=== PATIENT | male | born 1985 | race American Indian/Alaskan Native ===

== ENCOUNTER 2018-02-02 04:54 | Outpatient (CLI) | payer MEDICAID | END 2018-02-02 04:55 | disposition critical access hospital (66) | LOC: EMS 04:54 | PROVIDERS: ATTEND Surgery | DX: R07.9 Chest pain, unspecified (principal) | CPT/HCPCS: A0425; A0427 ==

== ENCOUNTER 2018-02-02 05:13 | Emergency (ER) | payer MEDICAID ==
--- NOTE | 2018-02-02 05:14 | ED Physician Documentation ---
PD HPI CHEST PAIN - Stated complaint Stated Complaint: CHEST PAIN - History obtained from History obtained from: Patient - History of Present Illness Timing - onset: Today Timing - details: Gradual onset, Constant, Waxing and waning Pain level now: 6 Quality: Pain Location: Left chest Radiation: Back Improved by: Nothing Worsened by: Position Associated symptoms: No: Shortness of air, Diaphoresis, Nausea, Vomiting, Feeling faint / dizzy, General Weakness, Palpitations, Cough Similar symptoms before: Has not had sx before Recently seen: Other (has been in [facility] days) - Additional information Additional information: left chest pain radiating to left shoulder blade all day. also c/o back pain, and painful swelling of right thumb and left fifth toe; except for the chest pain, these other symptoms are part of his chronic, underlying disorder ( reactive arthritis) for which he had been receiving treatment in [place] including [facility]. Review of Systems Constitutional: reports: Reviewed and negative Cardiac: reports: Chest pain / pressure. denies: Palpitations, Pedal edema Respiratory: reports: Reviewed and negative GI: reports: Reviewed and negative Skin: denies: Rash Musculoskeletal: reports: Back pain, Extremity pain, Extremity swelling PD PAST MEDICAL HISTORY - Past Medical History Past Medical History: Yes - Present Medications Home Medications: Ambulatory Orders Medication Instructions Recorded Confirmed Acetaminophen [Tylenol] 2 tab PO QPM 02/02/18 02/02/18 Cephalexin [Keflex] 500 mg PO Q6HR #27 capsule 02/02/18 Ibuprofen 1 tab PO TID 02/02/18 02/02/18 diphenhydrAMINE [Benadryl] 1 - 2 cap PO QPM PRN 02/02/18 02/02/18 oxyCODONE/ACET 5/325 [Percocet 5 1 each PO Q6H PRN #10 tablet 02/02/18 mg/325 mg] predniSONE [Prednisone] 1 tab PO DAILY 02/02/18 02/02/18 - Allergies Allergies/Adverse Reactions: Allergies Allergy/AdvReac Type Severity Reaction Status Date / Time No Known Drug Allergies Allergy Verified 02/02/18 05:24 PD ED PE NORMAL - Vitals Vital signs reviewed: Yes - General General: Alert and oriented X 3, No acute distress, Well developed/nourished - HEENT HEENT: Moist mucous membranes - Neck Neck: Supple, no meningeal sign - Cardiac Cardiac: RRR, No murmur, No gallop, No rub - Respiratory Respiratory: No respiratory distress, Clear bilaterally - Abdomen Abdomen: Soft, Non tender PD ED PE EXPANDED - Extremities Extremities: Tenderness (right thumb, left fifth toe), Limited ROM, Swelling ( severe right thumb, mild left fifth toe) Results - Vitals Vitals: Oxygen O2 Source Room air - EKG (time done) No standard instances Rate: Rate (enter#) (90) Rhythm: NSR [place]: Normal Intervals: Normal MA QRS: Normal Ischemia: Normal ST segments - Labs Labs: Laboratory Tests 02/02/18 02/02/18 02/02/18 06:03 06:03 06:03 WBC 10.4 RBC 3.63 L Hgb 11.3 L Hct 34.1 L MCV 94.0 MCH 31.2 H MCHC 33.2 RDW 12.9 Plt Count 478 H MPV 5.9 L Neut # 7.6 H Lymph # 1.6 [place] # 1.0 Eos # 0.1 Baso # 0.1 Absolute Nucleated RBC 0.00 Nucleated RBC % 0.0 Sodium 140 Potassium 4.0 Chloride 102 Carbon Dioxide 31 Anion Gap 7.0 BUN 17 Creatinine 0.8 Estimated GFR (MDRD) 111 Glucose 99 Calcium 8.8 Troponin I < 0.04 - Rads (name of study) chest xray Radiology: Prelim report reviewed, See rad report PD MEDICAL DECISION MAKING - ED course Complexity details: reviewed results, re-evaluated patient, considered differential, d/w patient ED course: although dactylitis is typical for reactive arthritis, he says there has been thick, green discharge from the right thumb and thus keflex given and prescribed. given percocet with rx, as pain is typically associated with this disorder. he says he plans to relocate to [place] after finishing with his [facility] time ([place] and then [place]). He says he plans to set himself up with outpatient physician, which will be [place]ug[place] to treating his reactive arthritis and help prevent frequent ED visits should he relocate locally. Departure - Departure Disposition: 01 Home, Self Care Clinical Impression: Reactive arthritis Condition: Good Instructions: ED Chest Pain Atypical Unkn Cause Follow-Up: [facility] [Provider Group] [facility] [Provider Group] Prescriptions: Cephalexin [Keflex] 500 mg PO Q6HR #27 capsule oxyCODONE/ACET 5/325 [Percocet 5 mg/325 mg] 1 each PO Q6H PRN #10 tablet PRN Reason: Pain Discharge Date/Time: 02/02/18 07:57
[2018-02-02] MEDS ORDERED: predniSONE 20 MG TABLET PO STA (06:04)
[2018-02-02 06:14] LABS: BASOPHILS # (AUTO) 0.1 10^3/uL (0.0-0.1); BASOPHILS % (AUTO) 0.8 %; EOSINOPHILS # (AUTO) 0.1 10^3/uL (0.0-0.7); EOSINOPHILS % (AUTO) 0.9 %; HGB - HEMOGLOBIN 11.3 g/dL (14.0-18.0); LYMPHOCYTES # (AUTO) 1.6 10^3/uL (1.5-3.5); LYMPHOCYTES % (AUTO) 15.5 %; MEAN CORPUSCULAR HEMOGLOBIN 31.2 pg (27.0-31.0); MEAN CORPUSCULAR HGB CONC 33.2 g/dL (32.0-36.0); MEAN PLATELET VOLUME 5.9 fL (7.4-11.4); MONOCYTES % (AUTO) 9.7 %; NEUTROPHILS # (AUTO) 7.6 10^3/uL (1.5-6.6); NEUTROPHILS % (AUTO) 73.1 %; PLT - PLATELET COUNT 478 10^3/uL (130-450); RED BLOOD COUNT 3.63 10^6/uL (4.70-6.10); RED CELL DISTRIBUTION WIDTH 12.9 % (12.0-15.0); WHITE BLOOD COUNT 10.4 x10^3/uL (4.8-10.8)
[2018-02-02 06:23] LABS: CALCIUM 8.8 mg/dL (8.5-10.3); CREATININE 0.8 mg/dL (0.6-1.2)
--- NOTE | 2018-02-02 06:55 | XRAY Report ---
EXAM: CHEST RADIOGRAPHY EXAM DATE: 02/02/2018 06:22 AM. CLINICAL HISTORY: Chest pain. COMPARISON: 09/30/2015, 12/12/2012. TECHNIQUE: 2 views. FINDINGS: Lungs/Pleura: No focal opacities evident. No pleural effusion. No pneumothorax. Normal volumes. Mediastinum: Heart and mediastinal contours are unremarkable. Other: None. IMPRESSION: Stable negative 2-view chest radiography. [facility] Referring Provider Line: [phone] SITE ID: [id number]
[2018-02-02] MEDS ORDERED: oxyCOD/ACETAMIN 5 MG/325 MG TABLET PO STA (07:24)
[2018-02-02] MEDS ORDERED: cephALEXin 250 MG CAPSULE PO STA (07:25)
[2018-02-02 07:45] VITALS: BP 127/81
== END 2018-02-02 07:57 | disposition home or self-care (01) ==
LOC: EDUNIT# → ED 05:13
DX: M02.30 Reiter's disease, unspecified site (principal)
CPT/HCPCS: 36415; 71046; 80048; 84484; 85025; 93005; 99284; A9270; J7512

== ENCOUNTER 2018-02-26 10:30 | Emergency (ER) | payer MEDICAID ==
[2018-02-26 10:44] VITALS: BP 124/85
[2018-02-26] MEDS ORDERED: DEXAMETHASONE 10 MG/ML VIAL PO STA (11:27)
[2018-02-26] MEDS ORDERED: KETOROLAC 60 MG/2 ML VIAL IVP STA (11:27)
--- NOTE | 2018-02-26 11:30 | ED Physician Documentation ---
History of Present Illness - Stated complaint Stated Complaint: SHOULDER/ANKLE/KNEE/HIP PX - Chief complaint Chief Complaint: Ext Problem - History obtained from History obtained from: Patient - History of Present Illness Timing: How many weeks ago (1) - Additonal information Additional information: 32-year-old male with a history of HLA 27B arthritis has been off of his Humira and has not been able to establish care with a fitness consultant since leaving [place]. He has developed worsening of his symptoms over the past week and he has a lot of swelling in his knee and pain in his spine. He has had some trouble with follow-up in that he was not able to be seen in the clinic secondary to insurance issues and he has not been able to get follow-up. Review of Systems Constitutional: denies: Fever Eyes: denies: Decreased vision Ears: denies: Ear pain Nose: denies: Congestion Throat: denies: Sore throat Cardiac: denies: Chest pain / pressure, Palpitations Respiratory: denies: Dyspnea, Cough GI: denies: Nausea, Vomiting : denies: Dysuria, Frequency Musculoskeletal: reports: Neck pain, Back pain, Extremity pain, Joint pain, Joint swelling, Pain with weight bearing Neurologic: denies: Generalized weakness, Focal weakness, Numbness PD PAST MEDICAL HISTORY - Past Medical History Endocrine/Autoimmune: None Psych: Anxiety, Panic attacks Musculoskeletal: Osteoarthritis - Past Surgical History Past Surgical History: No - Present Medications Home Medications: Ambulatory Orders Medication Instructions Recorded Confirmed oxyCODONE/ACET 5/325 [Percocet 5 1 - 2 each PO Q4-6H PRN #20 tablet 02/26/18 mg/325 mg] predniSONE [Deltasone] 10 mg PO DAILY #26 tablet 02/26/18 - Allergies Allergies/Adverse Reactions: Allergies Allergy/AdvReac Type Severity Reaction Status Date / Time No Known Drug Allergies Allergy Verified 02/26/18 10:37 - Social History Does the pt smoke?: No Smoking Status: Never smoker Does the pt drink ETOH?: No Does the pt have substance abuse?: Yes - Immunizations Immunizations are current?: No Immunizations: No immun - POLST Patient has POLST: No PD ED PE NORMAL - Vitals Vital signs reviewed: Yes (hypertensive mild ) - General General: Alert and oriented X 3, No acute distress, Well developed/nourished, Other (32 y/o male moaning in pain grasping his knee ) - HEENT HEENT: Atraumatic, PERRL, EOMI, Ears normal - Neck Neck: Supple, no meningeal sign, Other (There is bony point tenderness to the spine at the T4 level ) - Cardiac Cardiac: RRR, No murmur - Respiratory Respiratory: No respiratory distress, Clear bilaterally - Abdomen Abdomen: Soft, Non tender - Back Back: No CVA TTP - Derm Derm: Normal color, Warm and dry, No rash - Extremities Extremities: No deformity, Other (There is marked swelling and tenderness to the left knee with an obvious effusion. There is no erythema or warmth to the joint and there is pain with movement . ) - Neuro Neuro: No motor deficit, No sensory deficit Eye Opening: Spontaneous Motor: Obeys Commands Verbal: Oriented GCS Score: 15 - Psych Psych: Normal mood, Normal affect Results - Vitals Vitals: Vital Signs - 24 hr 02/26/18 10:34 Temperature 36.9 C Heart Rate 98 Respiratory 16 Rate Blood Pressure 124/85 H O2 Saturation 100 Oxygen O2 Source Room air PD MEDICAL DECISION MAKING - ED course Complexity details: considered differential, d/w patient ED course: 32-year-old male with HLA B27 arthritis has a flare of his arthritis and has no current medical care. Here in the emergency department he is administered dexamethasone 10 mg intravenous and 30 mg of Toradol. He does appear to be in a lot of pain. We will administer some pain medication and a course of prednisone and he will seek follow-up. Departure - Departure Disposition: 01 Home, Self Care Clinical Impression: Reactive arthritis, HLA-B27 positive arthropathy Condition: Stable Instructions: HLA-B27 Antigen Follow-Up: [facility] [Provider Group] [facility] [Provider Group] Juan Morejon MD [Physician No Access] - Prescriptions: oxyCODONE/ACET 5/325 [Percocet 5 mg/325 mg] 1 - 2 each PO Q4-6H PRN #20 tablet PRN Reason: Pain predniSONE [Deltasone] 10 mg PO DAILY #26 tablet
[2018-02-26] MEDS ORDERED: DEXAMETHASONE 10 MG/ML VIAL IVP STA (11:47)
[2018-02-26] MEDS ORDERED: CHERRY SYRUP 10 ML UDC PO ONE (11:55)
== END 2018-02-26 12:17 | disposition home or self-care (01) ==
LOC: ED 10:30
DX: M02.30 Reiter's disease, unspecified site (principal); M12.9 Arthropathy, unspecified
CPT/HCPCS: 36415; 96374; 96375; 99283; A9270

== ENCOUNTER 2018-10-16 03:18 | Emergency (ER) | payer MEDICAID ==
--- NOTE | 2018-10-16 03:25 | ED Physician Documentation ---
PD HPI LOWER EXT INJURY - Stated complaint Stated Complaint: R LEG PAIN - History obtained from History obtained from: Patient - History of Present Illness PD HPI LOW EXT INJURY LOCATION: Right, Lower leg, Ankle Type of injury: Other (denies recent infections). No: Fall, Twist, Blunt / blow Timing - duration: Days (2) Timing - details: Abrupt onset, Still present Improved by: No: Rest Worsened by: Moving, Palpating Associated symptoms: Swelling, Discolored (red and purple coloring). 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 Was referred to an [employer] but had not gone as yet. Had also been told he had gout in the past, at big toes.) Review of Systems Constitutional: denies: Fever, Myalgias Nose: denies: Rhinorrhea / runny nose, Congestion Throat: denies: Sore throat Respiratory: denies: Cough GI: denies: Vomiting, Diarrhea : denies: Dysuria, Frequency, Discharge Skin: denies: Abrasion (s), Laceration (s) Musculoskeletal: reports: Back pain (chronic) PD PAST MEDICAL HISTORY - Past Medical History Endocrine/Autoimmune: None Psych: Anxiety, Panic attacks Musculoskeletal: Osteoarthritis - Past Surgical History Past Surgical History: No - Present Medications Home Medications: Ambulatory Orders Medication Instructions Recorded Confirmed oxyCODONE/ACET 5/325 [Percocet 5 1 - 2 each PO Q4-6H PRN #20 tablet 02/26/18 mg/325 mg] predniSONE [Deltasone] 10 mg PO DAILY #26 tablet 02/26/18 Dexamethasone [Decadron] 4 mg PO DAILY #5 tablet 10/16/18 Doxycycline Hyclate 100 mg PO BID #20 capsule 10/16/18 Naproxen 500 mg PO BID #20 tablet 10/16/18 Oxycodone HCl/Acetaminophen 1 - 2 each PO Q6H PRN #20 tablet 10/16/18 [Percocet 5-325 mg Tablet] - Allergies Allergies/Adverse Reactions: Allergies Allergy/AdvReac Type Severity Reaction Status Date / Time No Known Drug Allergies Allergy Verified 10/16/18 03:27 - Social History Does the pt smoke?: No Smoking Status: Never smoker Does the pt drink ETOH?: No Does the pt have substance abuse?: Yes - Immunizations Immunizations are current?: No Immunizations: No immun - POLST Patient has POLST: No PD ED PE NORMAL - Vitals Vital signs reviewed: Yes - General General: Alert and oriented X 3, No acute distress, Well developed/nourished - HEENT HEENT: PERRL, EOMI - Neck Neck: Supple, no meningeal sign, No adenopathy - Cardiac Cardiac: RRR, No murmur - Respiratory Respiratory: Clear bilaterally - Back Back: No CVA TTP - Derm Derm: Normal color, Warm and dry - Extremities Extremities: Other (rigth lower leg/upper ankle with redness and very tender to the touch. There is purple bruising color in band around anterior lower lower leg. No skin ulcerations nor sores noted. No proximal red streaking. ) - Neuro Neuro: No motor deficit, No sensory deficit Results - Vitals Vitals: Vital Signs - 24 hr 10/16/18 03:24 Temperature 36.5 C Heart Rate 90 Respiratory 18 Rate Blood Pressure 123/78 O2 Saturation 94 Oxygen O2 Source Room air - Labs Labs: Laboratory Tests 10/16/18 10/16/18 10/16/18 04:15 04:15 04:15 WBC 6.7 RBC 3.55 L Hgb 11.3 L Hct 32.5 L MCV 91.6 MCH 31.9 H MCHC 34.8 RDW 13.5 Plt Count 392 MPV 5.9 L Neut # (Auto) 4.0 Lymph # (Auto) 1.7 [place] # (Auto) 0.8 Eos # (Auto) 0.1 Baso # (Auto) 0.1 Absolute Nucleated RBC 0.00 Nucleated RBC % 0.0 Sodium 136 Potassium 3.5 Chloride 101 Carbon Dioxide 27 Anion Gap 8.0 BUN 17 Creatinine 0.7 Estimated GFR (MDRD) 129 Glucose 147 H Calcium 8.3 L Total Bilirubin 0.4 AST 29 ALT 15 Alkaline Phosphatase 105 C-Reactive Protein 10.3 H Total Protein 7.8 Albumin 3.4 Globulin 4.4 H Albumin/Globulin Ratio 0.8 L Lipase 25 - Rads (name of study) right ankled Radiology: Prelim report reviewed (no acute bony process), See rad report PD MEDICAL DECISION MAKING - ED course Complexity details: reviewed results, considered differential (Consider version of gout versus monoarthritis. 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 He not had a recent other obvious infection. It is single joint area at the upper ankle to lower leg and so not obviously rheumatoid. There is some redness and warmth but no obvious skin sores. Less likely to be cellulitis. Likely will treat with NSAIDs and pain medicine. Consider short course of steroids as well and whether to do antibiotics for possible cellulitis.), d/w patient Departure - Departure Clinical Impression: Arthritis of right ankle, Reactive arthritis Condition: Stable Record reviewed to determine appropriate education?: Yes Prescriptions: Dexamethasone [Decadron] 4 mg PO DAILY #5 tablet Doxycycline Hyclate 100 mg PO BID #20 capsule Naproxen 500 mg PO BID #20 tablet Oxycodone HCl/Acetaminophen [Percocet 5-325 mg Tablet] 1 - 2 each PO Q6H PRN #20 tablet PRN Reason: pain Comments: This is most likely to be inflammatory such as reactive arthritis or gout and we would treated with naproxen twice daily for 7-10 days to to be taken with food. We can add steroids daily for the next several days as well. Add Percocet if needed for pain. Consider the possibility of an infection alternatively and so we will give antibiotics of doxycycline twice daily for a week. Recheck if not improving over the next several days.
[2018-10-16] MEDS ORDERED: DEXAMETHASONE 10 MG/ML VIAL PO STA (03:41)
[2018-10-16] MEDS ORDERED: oxyCODONE 5 MG TABLET PO STA (03:41)
[2018-10-16] MEDS ORDERED: IBUPROFEN 600 MG TABLET PO STA (03:41)
--- NOTE | 2018-10-16 04:03 | XRAY Report ---
Reason: right ankle red and swelling Procedure Date: 10/16/2018 Accession Number: [id number] / [id number] Procedure: XR - Ankle 3 View RT CPT Code: FULL RESULT: EXAM: RIGHT ANKLE RADIOGRAPHY EXAM DATE: 10/16/2018 03:58 AM. CLINICAL HISTORY: Right ankle red and swelling. COMPARISON: None. TECHNIQUE: 3 views. FINDINGS: Bones: No fracture seen. No focal area of bone destruction. Joints: No dislocation seen. Ankle mortise appears intact. No joint effusion identified. Soft Tissues: Soft tissue swelling. IMPRESSION: 1. Soft tissue swelling. 2. No acute osseous abnormality seen. [facility]
[2018-10-16 04:21] LABS: BASOPHILS # (AUTO) 0.1 10^3/uL (0.0-0.1); BASOPHILS % (AUTO) 1.3 %; EOSINOPHILS # (AUTO) 0.1 10^3/uL (0.0-0.7); EOSINOPHILS % (AUTO) 1.4 %; HGB - HEMOGLOBIN 11.3 g/dL (14.0-18.0); LYMPHOCYTES # (AUTO) 1.7 10^3/uL (1.5-3.5); LYMPHOCYTES % (AUTO) 25.8 %; MEAN CORPUSCULAR HEMOGLOBIN 31.9 pg (27.0-31.0); MEAN CORPUSCULAR HGB CONC 34.8 g/dL (32.0-36.0); MEAN CORPUSCULAR VOLUME 91.6 fL (80.0-94.0); MEAN PLATELET VOLUME 5.9 fL (7.4-11.4); MONOCYTES # (AUTO) 0.8 10^3/uL (0.0-1.0); MONOCYTES % (AUTO) 12.3 %; NEUTROPHILS % (AUTO) 59.2 %; PLT - PLATELET COUNT 392 10^3/uL (130-450); RED BLOOD COUNT 3.55 10^6/uL (4.70-6.10); RED CELL DISTRIBUTION WIDTH 13.5 % (12.0-15.0); WHITE BLOOD COUNT 6.7 x10^3/uL (4.8-10.8)
[2018-10-16 04:34] LABS: ALBUMIN 3.4 g/dL (3.2-5.5); ALBUMIN/GLOBULIN RATIO 0.8 (1.0-2.2); BILIRUBIN,TOTAL 0.4 mg/dL (0.2-1.0); CALCIUM 8.3 mg/dL (8.5-10.3); CREATININE 0.7 mg/dL (0.6-1.2); TOTAL PROTEIN 7.8 g/dL (6.7-8.2)
[2018-10-16] MEDS ORDERED: DOXYCYCLINE 100 MG TABLET PO STA (04:56)
[2018-10-16 05:25] VITALS: BP 130/80
== END 2018-10-16 05:44 | disposition home or self-care (01) ==
LOC: ED 03:18
DX: M02.371 Reiter's disease, right ankle and foot (principal); M19.90 Unspecified osteoarthritis, unspecified site
CPT/HCPCS: 36415; 73610; 80053; 83690; 85025; 85651; 86140; 99283; A9270

== ENCOUNTER 2019-08-02 13:04 | Emergency (ER) | payer MEDICAID ==
[2019-08-02] MEDS ORDERED: PROPARACAINE 0.5% OPHTH DROPS 15 ML EACHEYE STA (13:46)
--- NOTE | 2019-08-02 13:46 | ED Physician Documentation ---
History of Present Illness - Stated complaint Stated Complaint: VISION CHANGES - Chief complaint Chief Complaint: Heent - Additonal information Additional information: This is a 34 year old male with a history of HLA B-27 who presents with redness and pain and vision loss in his right eye over the past week. This has been progressive. He denies trauma to the eye. Now he can only see light/dark in the eye. He had this happen once before but does not remember what it was called or how it was treated. Review of Systems Constitutional: denies: Fever Eyes: reports: Loss of vision Cardiac: denies: Chest pain / pressure Skin: denies: Rash PD PAST MEDICAL HISTORY - Past Medical History Endocrine/Autoimmune: Other (HLA-B27) Psych: Anxiety, Panic attacks Musculoskeletal: Osteoarthritis - Past Surgical History Past Surgical History: No - Present Medications Home Medications: Ambulatory Orders Medication Instructions Recorded Confirmed No Known Home Medications 08/02/19 08/02/19 - Allergies Allergies/Adverse Reactions: Allergies Allergy/AdvReac Type Severity Reaction Status Date / Time No Known Drug Allergies Allergy Verified 08/02/19 13:09 - Social History Does the pt smoke?: No Smoking Status: Never smoker Does the pt drink ETOH?: No Does the pt have substance abuse?: Yes - Immunizations Immunizations are current?: No Immunizations: No immun - POLST Patient has POLST: No PD ED PE NORMAL - Vitals Vital signs reviewed: Yes - General General: Alert and oriented X 3 - HEENT HEENT: Other (Pupils are equal round, reactive to light. Right sclera is injected, and pt has photophobia. Left sclera completely normal. [place] normal in left, only percieves light/dark in the right. No focal uptake with fluorescein staining bilaterally. Flare on slit lamp exam on the right. IOP 23 on right, 18 on left.) - Neck Neck: Supple, no meningeal sign - Cardiac Cardiac: RRR, No murmur - Respiratory Respiratory: Clear bilaterally - Derm Derm: Warm and dry - Extremities Extremities: No deformity - Neuro Neuro: Alert and oriented X 3 - Psych Psych: Normal mood, Normal affect Results - Vitals Vitals: Oxygen O2 Source Room air PD MEDICAL DECISION MAKING - ED course Complexity details: considered differential (Glaucoma, uveitis, conjunctivits, iritis) ED course: Pt has near complete vision loss on the right, with physical exam and history highly suggestive of uveitis. Glaucoma unlikely given IOP only slightly elevated at 23. I called several ophthalmologists and Dr. Simon of [facility] in [place] is able to see patient immediately. I discussed that he needs to go there directly for evaluation and treatment today, and if for some reason he is unable to be seen, he needs to present to a local ED for opthalmologist evaluation. Patient agrees and was discharged to go via POV (per pt's wishes, with family member driving him) to [facility]. Departure - Departure Disposition: Home, Self Care Clinical Impression: Uveitis Condition: Stable Instructions: ED Uveitis Follow-Up: SHIRA SIMON MD [Physician No Access] - (Today, at 4:10 [facility] in [facility] at [address], ) Comments: You were seen today for vision loss and pain in your right eye, I think this is likely uveitis, which is inflammation of your eye. You need to be seen by an food scientist today. You have an appointment at [facility], please go directly there to see Dr. Simon, if you are unable to see him please return to the emergency department, preferably in an emergency department that has ophthalmology available. Discharge Date/Time: 08/02/19 15:07
[2019-08-02 15:07] VITALS: BP 130/77
== END 2019-08-02 15:07 | disposition home or self-care (01) ==
LOC: ED 13:04
DX: H20.9 Unspecified iridocyclitis (principal)
CPT/HCPCS: 99282; 99284; J3490

== ENCOUNTER 2019-12-13 22:53 | Emergency (ER) | payer MEDICAID ==
--- NOTE | 2019-12-13 23:56 | ED Physician Documentation ---
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 He has been seen at the [facility] by [employer]. The patient reports that he is unable to afford his medications so he has not been using any medications that have been recommended by ophthalmology and presents tonight for acute hand and feet pain and swelling and eye pain and redness.) Review of Systems Constitutional: reports: Myalgias Eyes: reports: Loss of vision, Decreased vision, Photophobia, Irritation Ears: reports: Reviewed and negative Nose: reports: Reviewed and negative Throat: reports: Reviewed and negative Cardiac: reports: Reviewed and negative Respiratory: reports: Reviewed and negative GI: reports: Reviewed and negative : reports: Reviewed and negative Skin: reports: Reviewed and negative Musculoskeletal: reports: Extremity pain Neurologic: reports: Reviewed and negative Psychiatric: reports: Reviewed and negative Endocrine: reports: Reviewed and negative Immunocompromised: reports: Reviewed and negative PD PAST MEDICAL HISTORY - Past Medical History Past Medical History: Yes Cardiovascular: None Respiratory: None Neuro: None Endocrine/Autoimmune: Other GI: None : None HEENT: None Psych: Anxiety, Panic attacks Musculoskeletal: Osteoarthritis Derm: None - Past Surgical History Past Surgical History: No - Present Medications Home Medications: Ambulatory Orders Medication Instructions Recorded Confirmed No Known Home Medications 08/02/19 08/02/19 - Allergies Allergies/Adverse Reactions: Allergies Allergy/AdvReac Type Severity Reaction Status Date / Time No Known Drug Allergies Allergy Verified 12/13/19 22:57 - Social History Does the pt smoke?: No Smoking Status: Never smoker Does the pt drink ETOH?: No Does the pt have substance abuse?: Yes - Immunizations Immunizations are current?: No Immunizations: No immun - POLST Patient has POLST: No PD ED PE NORMAL - Vitals Vital signs reviewed: Yes - General General: Alert and oriented X 3, No acute distress, Well developed/nourished - HEENT HEENT: Atraumatic, PERRL, EOMI, Ears normal, Moist mucous membranes, Pharynx benign, Dentition benign, Other (The pupils are equal round and reactive to lightAnd extraocular motions intact there is consensual photophobia present eyelids were everted no obvious foreign bodies noted there is diffuse scleral and conjunctival injection and erythema. The orbits are soft. There is no discharge there is no preauricular lymphadenopathy.Intraocular pressure is less than 20 bilaterally.Patient is refusing slit-lamp exam.) - Neck Neck: Supple, no meningeal sign - Cardiac Cardiac: RRR, No murmur, Strong equal pulses - Respiratory Respiratory: No respiratory distress, Clear bilaterally - Abdomen Abdomen: Normal bowel sounds, Soft, Non tender, Non distended, No organomegaly - Back Back: No CVA TTP, No spinal TTP - Derm Derm: Normal color, Warm and dry, No rash - Extremities Extremities: No deformity - Neuro Neuro: Alert and oriented X 3 - Psych Psych: Normal mood, Normal affect Results - Vitals Vitals: Vital Signs - 24 hr 12/13/19 12/14/19 12/14/19 22:57 00:30 00:46 Temperature 36.5 C Heart Rate 104 H 75 Respiratory 14 16 20 Rate Blood Pressure 147/91 H 122/73 O2 Saturation 98 95 12/14/19 12/14/19 02:09 02:10 Temperature Heart Rate 71 Respiratory 17 18 Rate Blood Pressure 127/81 H O2 Saturation 95 Oxygen O2 Source Room air Procedures - General procedure General procedure: Doug-Pen shows IOP of 18 and 19 B/L. patient refusing slit lamp or Fluorescein exam. PD MEDICAL DECISION MAKING - ED course Complexity details: other (I had a lengthy discussion with the patient's mother and the patient in regards to emergently transferring the patient to [facility], the patient and the mother refusing the patient does have medical decision- making capability and capacity and assumes all risks to include any adverse outcome such as permanent disability or disfigurement or blindness.Had a lengthy discussion with adjunct art history instructor on-call at [facility] he recommends to treat with Cyclogyl here in the emergency department and provide the patient with topical ophthalmic prednisone.Patient was treated here in the emergency department and observed for several hours his symptoms have improved and he would like to be discharged home and states that he will follow-up with his adjunct art history instructor today.) - Consults Consults: Other (I had a lengthy discussion with dr. hester (Industrial Waste Treatment Technician) from [facility] as well as (Industrial Waste Treatment Technician) from [facility].They both recommend to treat with cyclogyl as well as topical opthalmic prednisone and follow up today with [facility]. I) Departure - Departure Disposition: 01 Home, Self Care Clinical Impression: Uveitis of both eyes Condition: Fair Instructions: Uveitis Follow-Up: KODAK ESCAMILLA MD [Physician No Access] - 12/14/19 Comments: go to [facility] today at 8 am. Phone number is [phone] in [place]. Discharge Date/Time: 12/14/19 02:20
[2019-12-14] MEDS ORDERED: predniSONE 20 MG TABLET PO STA (00:30)
[2019-12-14] MEDS ORDERED: TETRACAINE 0.5% OPHTH DROPS 4 ML EACHEYE ONE (00:30)
[2019-12-14] MEDS ORDERED: TETRACAINE 0.5% OPHTH DROPS 4 ML ONE (00:45)
[2019-12-14] MEDS ORDERED: CYCLOPENTOLATE 1% OPHTH DROPS 2 ML EACHEYE ONE (01:03)
[2019-12-14] MEDS ORDERED: HYDROcod/ACETAM 5/325 MG TABLET PO STA (01:34)
[2019-12-14] MEDS ORDERED: prednisoLONE 1% OPHTH DROPS 75 DROPS/5 ML BOTTLE ONE (01:52)
[2019-12-14] MEDS ORDERED: CYCLOPENTOLATE 1% OPHTH DROPS 2 ML ONE (01:52)
[2019-12-14] MEDS ORDERED: prednisoLONE 1% OPHTH DROPS 75 DROPS/5 ML BOTTLE EACHEYE SCH (02:00)
[2019-12-14 02:20] VITALS: BP 127/81
== END 2019-12-14 02:20 | disposition home or self-care (01) ==
LOC: ED 22:53
DX: H20.9 Unspecified iridocyclitis (principal)
CPT/HCPCS: 99282; 99284; A9270; J7512

== ENCOUNTER 2020-01-12 02:22 | Outpatient (CLI) | payer MEDICAID | END 2020-01-12 02:23 | disposition critical access hospital (66) | LOC: EMS 02:22 | PROVIDERS: ATTEND Surgery | DX: M54.2 Cervicalgia (principal); M54.9 Dorsalgia, unspecified; R20.0 Anesthesia of skin | CPT/HCPCS: A0425; A0429; A0999 ==

== ENCOUNTER 2020-01-12 02:27 | Emergency (ER) | payer MEDICAID ==
--- NOTE | 2020-01-12 02:37 | ED Physician Documentation ---
History of Present Illness - Stated complaint Stated Complaint: BACK PAIN, RIGHT ARM, HEAD AND NECK NUMBNESS - History obtained from History obtained from: Patient (the patient is a 34 y/o m w a hx of reactive arthritis and HLA-B27 arthritis previously on humira but now non compliant with his medications presents via ems with pain in his joints to include right upper extremity and neck pain, denies fevers, headaches, rashes. reports he was playing a game tonight and was more active than usual and feels like he is having muscle cramping in his right trapezius. he did not try any treatment prior to arrival. he has not followed up with a primary care provider or any physicians in the last year other than going to the emergency department when he has flairs.) Review of Systems Ten Systems: 10 systems reviewed and negative Constitutional: reports: Reviewed and negative Eyes: reports: Reviewed and negative Ears: reports: Reviewed and negative Nose: reports: Reviewed and negative Throat: reports: Reviewed and negative Cardiac: reports: Reviewed and negative Respiratory: reports: Reviewed and negative GI: reports: Reviewed and negative : reports: Reviewed and negative Skin: reports: Reviewed and negative Musculoskeletal: reports: Reviewed and negative Neurologic: reports: Reviewed and negative Psychiatric: reports: Reviewed and negative Endocrine: reports: Reviewed and negative Immunocompromised: reports: Reviewed and negative PD PAST MEDICAL HISTORY - Past Medical History Cardiovascular: None Respiratory: None Neuro: None Endocrine/Autoimmune: Other GI: None : None HEENT: None Psych: Anxiety, Panic attacks Musculoskeletal: Osteoarthritis Derm: None - Past Surgical History Past Surgical History: No - Present Medications Home Medications: Ambulatory Orders Medication Instructions Recorded Confirmed predniSONE [Prednisone] 50 mg PO DAILY 7 Days #7 tablet 01/12/20 - Allergies Allergies/Adverse Reactions: Allergies Allergy/AdvReac Type Severity Reaction Status Date / Time No Known Drug Allergies Allergy Verified 12/13/19 22:57 - Social History Does the pt smoke?: No Smoking Status: Never smoker Does the pt drink ETOH?: No Does the pt have substance abuse?: Yes - Immunizations Immunizations are current?: No Immunizations: No immun - POLST Patient has POLST: No PD ED PE NORMAL - Vitals Vital signs reviewed: Yes - General General: Alert and oriented X 3, No acute distress, Well developed/nourished - HEENT HEENT: Atraumatic, PERRL, Moist mucous membranes, Pharynx benign - Neck Neck: Supple, no meningeal sign, No JVD - Cardiac Cardiac: RRR, No murmur, Strong equal pulses - Respiratory Respiratory: No respiratory distress, Clear bilaterally - Abdomen Abdomen: Normal bowel sounds, Soft, Non tender, Non distended - Back Back: No CVA TTP, No spinal TTP, Other (muscle spasms present in right trapezius and right SCM. no midline ttp. ) - Derm Derm: Warm and dry - Extremities Extremities: No deformity - Neuro Neuro: Alert and oriented X 3, university counselor 2-12 intact, No motor deficit, No sensory deficit, Normal speech, Other (No facial droop, no unilateral weakness, normal gait, normal [id number], normal [id number], normal rapid alternating movements, no pronater drift.) - Psych Psych: Normal mood, Normal affect Results - Vitals Vitals: Vital Signs - 24 hr 01/12/20 01/12/20 02:39 04:25 Temperature 37.2 C 36.6 C Heart Rate 113 H 107 H Respiratory 32 H 18 Rate Blood Pressure 146/100 H 141/108 H O2 Saturation 100 96 Oxygen O2 Source Room air PD MEDICAL DECISION MAKING - ED course Complexity details: re-evaluated patient (Symptoms resolved.Patient was treated with intramuscular Decadron, Toradol, Dilaudid, Valium.He is afebrile), considered differential (hx and exam consistent with acute reactive arthritis. i did offer to perform an MRI to rule out any acute process such as epidural abscess however the patient reports his symptoms have improved And he would like to be discharged home at this time.. ) Departure - Departure Disposition: 01 Home, Self Care Clinical Impression: Reactive arthritis Condition: Stable Instructions: Ankylosing Spondylitis Follow-Up: your, doctor [Other] Prescriptions: predniSONE [Prednisone] 50 mg PO DAILY 7 Days #7 tablet Comments: follow up with your primary care provider today. take prednisone as directed. Discharge Date/Time: 01/12/20 04:51
[2020-01-12] MEDS: HYDROmorphone 2 MG/ML VIAL IM STA (03:20)
[2020-01-12] MEDS: DEXAMETHASONE 10 MG/ML VIAL IM STA (03:25)
[2020-01-12] MEDS: KETOROLAC 30 MG/ML VIAL IM STA (03:25)
[2020-01-12] MEDS: diazePAM INJ 5 MG/ML SYRINGE IM STA (03:53)
[2020-01-12 04:26] VITALS: BP 141/108
== END 2020-01-12 04:51 | disposition home or self-care (01) ==
LOC: EDUNIT# → ED 02:27
DX: M02.39 Reiter's disease, multiple sites (principal); T39.4X6A Underdosing of antirheumatics, not elsewhere classified, initial encounter; Z91.128 Patient's intentional underdosing of medication regimen for other reason; F41.9 Anxiety disorder, unspecified
CPT/HCPCS: 96372; 99283; 99284; J1170

== ENCOUNTER 2020-02-16 21:00 | Emergency (ER) | payer MEDICAID ==
[2020-02-16] MEDS ORDERED: BUPIVACAINE 0.5% PF 30 ML VIAL SUBQ ONE (21:22)
[2020-02-16] MEDS ORDERED: BUFFERED LIDOCAINE 10 ML SYRINGE SUBQ STA (21:22)
[2020-02-16] MEDS ORDERED: oxyCODONE 5 MG TABLET PO STA (21:23)
--- NOTE | 2020-02-16 21:24 | ED Physician Documentation ---
PD HPI LOWER EXT INJURY - Stated complaint Stated Complaint: RT LEG PX, WEAKNESS - Chief complaint Chief Complaint: Ext Problem - History obtained from History obtained from: Patient (34-year-old gentleman with history of reactive arthritis had his knee swelled up without specific trauma over the last few days. Now has body wide pain because he has been walking offkilter with a cane as well. But the worst of the pain is in the knee. He denies fevers.) Review of Systems Constitutional: denies: Fever, Chills Cardiac: reports: Reviewed and negative Respiratory: reports: Reviewed and negative PD PAST MEDICAL HISTORY - Past Medical History Past Medical History: Yes Cardiovascular: None Respiratory: None Neuro: None Endocrine/Autoimmune: Other GI: None : None HEENT: None Psych: Anxiety, Panic attacks Musculoskeletal: Osteoarthritis Derm: None - Past Surgical History Past Surgical History: No - Present Medications Home Medications: Ambulatory Orders Medication Instructions Recorded Confirmed predniSONE [Prednisone] 50 mg PO DAILY 7 Days #7 tablet 01/12/20 Oxycodone HCl/Acetaminophen 1 - 2 each PO Q6H PRN #10 tablet 02/16/20 [Percocet 5-325 mg Tablet] predniSONE [Deltasone] 20 mg PO [id number] #21 tab 02/16/20 - Allergies Allergies/Adverse Reactions: Allergies Allergy/AdvReac Type Severity Reaction Status Date / Time No Known Drug Allergies Allergy Verified 12/13/19 22:57 - Social History Does the pt smoke?: No Smoking Status: Never smoker Does the pt drink ETOH?: No Does the pt have substance abuse?: Yes - Immunizations Immunizations are current?: No Immunizations: No immun - POLST Patient has POLST: No PD ED PE NORMAL - Vitals Vital signs reviewed: Yes - General General: Alert and oriented X 3, Other (tearful) - HEENT HEENT: PERRL, EOMI - Extremities Extremities: Other (There is a massive effusion of the right knee and he is holding it about intermediate flexed and cannot move it. There is no redness or warmth.) - Neuro Neuro: Alert and oriented X 3, Normal speech Results - Vitals Vitals: Vital Signs - 24 hr 02/16/20 21:11 Temperature 37.1 C Heart Rate 112 H Respiratory 20 Rate Blood Pressure 135/82 H O2 Saturation 100 Oxygen O2 Source Room air - Labs Labs: Laboratory Tests 02/16/20 02/16/20 21:48 21:48 Fluid Source KNEE Fluid Color YELLOW Fluid Clarity CLOUDY Fluid WBC 71258 Fluid RBC 2000 Fluid Crystals NONE SEEN Procedures - Arthrocentesis Joint: Knee Preparation: Consent obtained, Sterile prep and drape Anesthesia: Lidocaine 1% Fluid: Clear (60ml), Sent for cell count, Cloudy, Sent for crystals, Sent for culture Aftercare: Patient tolerated well (injected 8ml of 0.5 ml marcaine) PD MEDICAL DECISION MAKING - ED course ED course: 34-year-old gentleman with reactive arthritis presents with an exacerbation of same and now body wide pain. He seems to have a very low tolerance for pain, for example as I am doing the arthrocentesis, puncturing the skin with a 27- gauge needle has him weeping and crying. 34-year-old gentleman with an inflammatory arthritis presents with a large effusion of the right knee. No clinical or lab evidence of infection. 60 mL or so Arthrocentesis was done and some local bupivacaine was introduced under sterile conditions after consent. Departure - Departure Disposition: 01 Home, Self Care Clinical Impression: Effusion, right knee, Reactive arthritis Condition: Good Record reviewed to determine appropriate education?: Yes Instructions: ED Arthritis Rheumatoid Prescriptions: Oxycodone HCl/Acetaminophen [Percocet 5-325 mg Tablet] 1 - 2 each PO Q6H PRN #10 tablet PRN Reason: pain predniSONE [Deltasone] 20 mg PO [id number] #21 tab Comments: Call your doctor to arrange a follow-up appointment, make the next available appointment. In the interim, return anytime if worse or if new symptoms develop.
[2020-02-16] MEDS ORDERED: BUPIVACAINE 0.5% PF 10 ML VIAL SUBQ STA (21:29)
[2020-02-16] MEDS ORDERED: BUPIVACAINE 0.25% PF 30 ML VIAL SUBQ STA (21:29)
[2020-02-16] MEDS ORDERED: DEXAMETHASONE 10 MG/ML VIAL IM STA (21:47)
[2020-02-16] MEDS ORDERED: LORazepam 2 MG/ML VIAL IM STA (21:47)
[2020-02-16 22:38] LABS: BF CLARITY CLOUDY; BF COLOR YELLOW; BF SOURCE KNEE; CC,BF RBC 2000 /mm^3
[2020-02-16] MEDS ORDERED: oxyCODONE/ACET 5/325 Prepack 4 PO STA (22:43)
[2020-02-16 23:05] LABS: MESOTHELIAL %, BF 0 %
[2020-02-16 23:08] VITALS: BP 136/82
== END 2020-02-16 23:05 | disposition home or self-care (01) ==
LOC: ED 21:00
DX: M25.461 Effusion, right knee (principal); M02.361 Reiter's disease, right knee
CPT/HCPCS: 20610; 87070; 87205; 89051; 89060; 96372; 99283; 99284; A9270; J2060

== ENCOUNTER 2020-02-21 10:56 | Outpatient (CLI) | payer MEDICAID | END 2020-02-21 10:57 | disposition critical access hospital (66) | LOC: EMS 10:56 | PROVIDERS: ATTEND Surgery | DX: M25.561 Pain in right knee (principal) | CPT/HCPCS: A0425; A0429; A0999 ==

== ENCOUNTER 2020-02-21 11:06 | Emergency (ER) | payer MEDICAID ==
[2020-02-21 11:20] VITALS: BP 114/72
== END 2020-02-21 12:15 | disposition left against medical advice (07) ==
LOC: EDUNIT# → ED 11:06
DX: Z53.21 Procedure and treatment not carried out due to patient leaving prior to being seen by health care provider (principal)

== ENCOUNTER 2020-02-24 01:50 | Outpatient (CLI) | payer MEDICAID | END 2020-02-24 01:51 | disposition critical access hospital (66) | LOC: EMS 01:50 | PROVIDERS: ATTEND Surgery | DX: R52 Pain, unspecified (principal) | CPT/HCPCS: A0425; A0429 ==

== ENCOUNTER 2020-02-24 01:54 | Inpatient (IN) | payer MEDICAID ==
--- NOTE | 2020-02-24 01:54 | ED Physician Documentation ---
History of Present Illness - Stated complaint Stated Complaint: BODY PX - History obtained from History obtained from: Patient (The patient is a 34-year-old male who presents via ambulance with a chief complaint of right knee pain and fever. Is got a history of reactive arthritis versus rheumatoid arthritis had a right knee arthrocentesis about 6 days ago and now reports worsening pain and swelling and fevers. His arthrocentesis showed no no growth after 3 days and no bacteria.The patient is unable to provide any additional history as she is crying in pain.) Review of Systems Unable to obtain: Uncooperative PD PAST MEDICAL HISTORY - Present Medications Home Medications: Ambulatory Orders Medication Instructions Recorded Confirmed Oxycodone HCl/Acetaminophen 1 - 2 each PO Q6H PRN #10 tablet 02/16/20 02/24/20 [Percocet 5-325 mg Tablet] predniSONE [Deltasone] 20 mg PO [id number] #21 tab 02/16/20 02/24/20 - Allergies Allergies/Adverse Reactions: Allergies Allergy/AdvReac Type Severity Reaction Status Date / Time No Known Drug Allergies Allergy Verified 02/24/20 02:04 PD ED PE NORMAL - Vitals Vital signs reviewed: Yes - General General: Alert and oriented X 3, Other (Upon entering the patient's room he is lying in the position rocking back and forth crying in pain.) - HEENT HEENT: Atraumatic, PERRL, Moist mucous membranes - Neck Neck: Supple, no meningeal sign - Cardiac Cardiac: RRR, No murmur, Strong equal pulses - Respiratory Respiratory: No respiratory distress, Clear bilaterally - Abdomen Abdomen: Normal bowel sounds, Soft, Non tender, Non distended, No organomegaly - Derm Derm: Other (large joint effusion over right knee.) - Extremities Extremities: Other (There is a large joint effusion over the right knee, it is warm to the touch.NV intact. no crepitus. ) - Neuro Neuro: Alert and oriented X 3 - Psych Psych: Normal mood, Normal affect Results - Vitals Vitals: Vital Signs - 24 hr 02/24/20 02:00 Temperature 37.9 C H Heart Rate 100 Respiratory 20 Rate Blood Pressure 142/113 H O2 Saturation 98 Oxygen O2 Source Room air - EKG (time done) 02:19 Rate: Other (no stemi) - Labs Labs: Laboratory Tests 02/24/20 02/24/2020 02:25 02:25 02:25 WBC 17.0 H RBC 3.54 L Hgb 11.0 L Hct 34.4 L MCV 97.2 H MCH 31.1 H MCHC 32.0 RDW 12.1 Plt Count 552 H MPV 8.1 Neut # (Auto) Not Reportable Lymph # (Auto) Not Reportable [place] # (Auto) Not Reportable Eos # (Auto) Not Reportable Baso # (Auto) Not Reportable Absolute Nucleated RBC Not Reportable Total Counted 100 Band Neuts % (Manual) 1 Abnorm Lymph % (Manual) 2 Nucleated RBC % Not Reportable Neutrophils # (Manual) 11.2 H Lymphocytes # (Manual) 5.1 H Monocytes # (Manual) 0.7 Eosinophils # (Manual) 0.0 Basophils # (Manual) 0.0 Differential Comment MANUAL DIFFERENTIAL WBC Morphology NORMAL APPEARANCE Platelet Estimate INCREASED (>450,000) Platelet Morphology NORMAL APPEARANCE RBC Morph Micro Appear NORMAL APPEARANCE ESR 85 H Sodium 140 Potassium 3.8 Chloride 103 Carbon Dioxide 27 Anion Gap 10.0 BUN 15 Creatinine 0.7 Estimated GFR (MDRD) 128 Glucose 102 H Lactic Acid Calcium 8.6 Total Bilirubin 0.2 AST 93 H ALT 109 H Alkaline Phosphatase 120 Troponin I High Sens C-Reactive Protein 6.8 H Total Protein 8.2 Albumin 3.0 L Globulin 5.2 H Albumin/Globulin Ratio 0.6 L Lipase 25 Ethyl Alcohol 02/24/20 02/24/20 02/24/20 02:25 02:25 02:25 WBC RBC Hgb Hct MCV MCH MCHC RDW Plt Count MPV Neut # (Auto) Lymph # (Auto) [place] # (Auto) Eos # (Auto) Baso # (Auto) Absolute Nucleated RBC Total Counted Band Neuts % (Manual) Abnorm Lymph % (Manual) Nucleated RBC % Neutrophils # (Manual) Lymphocytes # (Manual) Monocytes # (Manual) Eosinophils # (Manual) Basophils # (Manual) Differential Comment WBC Morphology Platelet Estimate Platelet Morphology RBC Morph Micro Appear ESR Sodium Potassium Chloride Carbon Dioxide Anion Gap BUN Creatinine Estimated GFR (MDRD) Glucose Lactic Acid 1.1 Calcium Total Bilirubin AST ALT Alkaline Phosphatase Troponin I High Sens 3.5 C-Reactive Protein Total Protein Albumin Globulin Albumin/Globulin Ratio Lipase Ethyl Alcohol < 5.0 Procedures - Arthrocentesis Joint: Knee Preparation: Consent obtained, Sterile prep and drape Anesthesia: Lidocaine 1% Fluid: Other (unsuccessful, dry tap.) Aftercare: Patient tolerated well PD MEDICAL DECISION MAKING - ED course Complexity details: considered differential (recent arthrocentesis of right knee, showed no bacteria and no growth after 3 days presents with worsening knee pain, swelling and fever. concern for septic arthritis. iv vanc, rocephin, blood cult x 2, esr, crp, x ray ordered. will consult ortho for eval and recs.), d/w advertising consultant (case d/w dr. porter orthopedic surgery. will see as consult, patient to be admitted to hospitalist.) - Consults Consults: Discussed case with (dr. fatima. will admit.) Departure - Departure Disposition: ED Place in Observation Clinical Impression: Effusion, right knee, Knee arthropathy Leukocytosis Qualifiers: Leukocytosis type: other Qualified Code(s): D72.828 - Other elevated white blood cell count Condition: Stable
[2020-02-24] MEDS ORDERED: cefTRIAXone 1 GM in SODIUM CHLORIDE 0.9% MINIBAG 100 ML IV STA (02:17)
[2020-02-24] MEDS ORDERED: HYDROmorphone 1 MG/ML CARPUJECT IVP STA ×2 (02:17→03:43)
[2020-02-24] MEDS ORDERED: SODIUM CHLORIDE 0.9% 1,000 ML IV STA (02:17)
[2020-02-24] MEDS ORDERED: VANCOMYCIN INJ 1,000 GM in SODIUM CHLORIDE 0.9% 500 ML IV STA (02:21)
[2020-02-24] MEDS ORDERED: SODIUM CHLORIDE 0.9% 500 ML ONE (02:34)
[2020-02-24 02:40] LABS: BASOPHILS % (AUTO) 0.5 %; EOSINOPHILS % (AUTO) 0.3 %; LYMPHOCYTES % (AUTO) 24.7 %; MEAN CORPUSCULAR HEMOGLOBIN 31.1 pg (27.0-31.0); MEAN CORPUSCULAR VOLUME 97.2 fL (80.0-94.0); MEAN PLATELET VOLUME 8.1 fL (7.4-11.4); MONOCYTES % (AUTO) 9.4 %; NEUTROPHILS % (AUTO) 63.9 %; PLT - PLATELET COUNT 552 10^3/uL (130-450); RED BLOOD COUNT 3.54 10^6/uL (4.70-6.10); RED CELL DISTRIBUTION WIDTH 12.1 % (12.0-15.0)
[2020-02-24] MEDS ORDERED: VANCOMYCIN 1 GM VIAL ONE (02:53)
[2020-02-24 02:57] LABS: ALBUMIN/GLOBULIN RATIO 0.6 (1.0-2.2); BILIRUBIN,TOTAL 0.2 mg/dL (0.2-1.0); CALCIUM 8.6 mg/dL (8.5-10.3); CREATININE 0.7 mg/dL (0.6-1.2); CRP - C-REACTIVE PROTEIN 6.8 mg/dL (0-1.0); TOTAL PROTEIN 8.2 g/dL (6.7-8.2)
--- NOTE | 2020-02-24 03:03 | XRAY Report ---
Reason: right knee pain Procedure Date: 02/24/2020 Accession Number: [id number] / [id number] Procedure: XR - Knee 3 View RT CPT Code: Final Report FULL RESULT: EXAM: RIGHT KNEE RADIOGRAPHY EXAM DATE: 02/24/2020 02:18 AM. CLINICAL HISTORY: Right knee pain. COMPARISON: None. TECHNIQUE: 3 views. FINDINGS: Bones: Normal. No fractures or bone lesions. Joints: Normal. No effusion. No subluxations. Soft Tissues: Soft tissue swelling. No radiopaque foreign body. IMPRESSION: Soft tissue swelling, but no evidence of fracture. RADIA
--- NOTE | 2020-02-24 03:04 | XRAY Report ---
Reason: fever Procedure Date: 02/24/2020 Accession Number: [id number] / [id number] Procedure: XR - Chest 1 View X-Ray CPT Code: 80446 Final Report FULL RESULT: EXAM: CHEST RADIOGRAPHY EXAM DATE: 02/24/2020 02:23 AM. CLINICAL HISTORY: Fever. COMPARISON: CHEST 2 VIEW 02/02/2018 6:22 AM. TECHNIQUE: 1 view. FINDINGS: Lungs/Pleura: No focal opacities evident. No pleural effusion. No pneumothorax. Mediastinum: Within exam limitations, the cardiomediastinal contour is normal. Other: None. IMPRESSION: Normal single view chest. RADIA
[2020-02-24 03:11] LABS: ABNORMAL LYMPHS % (MANUAL) 2 %; BAND NEUTROPHILS % (MANUAL) 1 %; LYMPHOCYTES # (MANUAL) 5.1 10^3/uL (1.5-3.5); LYMPHOCYTES % (MANUAL) 28 %; MONOCYTES # (MANUAL) 0.7 10^3/uL (0.0-1.0)
[2020-02-24 03:12] LABS: DIFFERENTIAL COMMENT MANUAL DIFFERENTIAL; PLATELET ESTIMATE, MANUAL INCREASED (>450,000) (NORMAL); PLATELET MORPHOLOGY NORMAL APPEARANCE (NORMAL); RBC MORPHOLOGY (MULTIPLE) NORMAL APPEARANCE (NORMAL)
[2020-02-24] MEDS ORDERED: ACETAMINOPHEN 325 MG TABLET PO STA (03:19)
[2020-02-24] MEDS ORDERED: LIDOCAINE 1%-EPI 1:100000 20 ML MDV SUBQ STA (03:31)
[2020-02-24] MEDS ORDERED: ACETAMINOPHEN 325 MG TABLET PO PRN (04:34)
--- NOTE | 2020-02-24 04:49 | HISTORY & PHYSICAL EXAMINATION ---
Chief Complaint - Chief Complaint Chief Complaint: right swollen and painful knee History of Present Illness - Admitted From Admitted From:: [facility] ED - History Obtained From Records Reviewed: yes History obtained from: patient - History of Present Illness HPI Comment/Other: Patient is a 34 y/o male with Hx of rheumatoid arthritis, ?reactive joint disease and HLA-B27 positive who presented to the ED via EMS with severe right knee pain and swelling. This is his third visit to the ED this week. On 02/16/2020 the joint was aspirated. It showed many WBC's but there has been no growth on culture of the synovial fluid to date. Attempt at aspirating the joint today produced nothing. He was found to have a WBC of 17 and a Temp of 37.8C. His ESR was 85 and his CRP was 6.8. He denied any injury of puncture to the knee. He has not been sexually active for over a year and denies any previous history of STD's, urethral discharge or pain. He has a history of heroine and methamphetamine IV drug use. He denies chest pain, dyspnea, abd pain, nausea or vomiting. As a result of his symptoms and lab findings, he was presented for admission. Dr Park with orthopedics was contacted by the ED physician and will see the patient later today. History - Past Medical History Cardiovascular: reports: None Respiratory: reports: None Neuro: reports: None Endocrine/Autoimmune: reports: Other (Rheumatoid arthritis, HLA-B27 positive) GI: reports: None : reports: None HEENT: reports: None Psych: reports: Anxiety, Panic attacks Musculoskeletal: reports: Rheumatoid arthritis Derm: reports: None MRSA Hx?: No - Past Surgical History Ortho: reports: Other (right knee surgery) - Family & Social History Family History Comment/Other: He reports history of heart disease and diabetes in his family but did not specify which relatives Social History Notes: He currently lives with his mother in [place], [place]. he has been living here since 2013. Prior to that he lived in [place]. He smokes 1/4 ppd X 20 years on/off. He drinks occasionally. He has history of methamphetamine and heroine IV drug use. - POLST Patient has POLST: No POLST Status: Full Code Meds/Allgy - Home Medications Home Medications: Ambulatory Orders Medication Instructions Recorded Confirmed Oxycodone HCl/Acetaminophen 1 - 2 each PO Q6H PRN #10 tablet 02/16/20 02/24/20 [Percocet 5-325 mg Tablet] predniSONE [Deltasone] 20 mg PO [id number] #21 tab 02/16/20 02/24/20 - Allergies Allergies/Adverse Reactions: Allergies Allergy/AdvReac Type Severity Reaction Status Date / Time No Known Drug Allergies Allergy Verified 02/24/20 02:04 Review of Systems - Constitutional Constitutional: reports: Fever - Eyes Eyes: denies: Pain, Vision loss - Ears, Nose & Throat Ears, Nose & Throat: denies: Sore throat - Cardiovascular Cariovascular: denies: Chest pain, Lightheadedness, Syncope - Respiratory Respiratory: denies: Cough, Sputum production, Wheezing, SOB at rest, SOB with exertion - Gastrointestinal Gastrointestinal: denies: Abdominal pain, Nausea, Vomiting - Genitourinary Genitourinary: denies: Dysuria, Frequency, Urgency, Hematuria - Musculoskeletal Musculoskeletal: reports: Joint pain, Joint swelling (right knee) - Integumentary Integumentary: denies: Rash, Pruritis, Lesions - Neurological Neurological: denies: General weakness, Headache - Psychiatric Psychiatric: denies: Depression, Anxiety - Endocrine Endocrine: denies: Polyuria, Polydypsia - Hematologic/Lymphatic Hematologic/Lymphatic: denies: Anemia, Bruising Prior Level of Functionality: He is independent of activities of daily living Exam - Vital Signs Vital Signs: Vital Signs x48h Temp Pulse Resp BP Pulse Ox 02/24/20 04:17 92 22 128/90 H 98 02/24/20 02:00 37.9 C H 100 20 142/113 H 98 - Physical Exam General Appearance: positive: Alert, Moderate distress, Severe distress, Other (tearful) Eyes Bilateral: positive: PERRL, EOMI ENT: positive: Pharynx nml Neck: positive: No JVD, Trachea midline Respiratory: positive: Chest non-tender, No respiratory distress, Breath sounds nml. negative: Wheezes, Rales, Rhonchi Cardiovascular: positive: Regular rate & rhythm, No murmur Abdomen: positive: Non-tender, No organomegaly, Nml bowel sounds, No distention. negative: Guarding, Rebound Back: positive: Nml inspection Skin: positive: Color nml, No rash, Warm, Dry Extremities: positive: No pedal edema, Joint swelling (right knee), Other (right knee joint pain) Neurologic/Psychiatric: positive: Oriented x3 Conclusion/Plan - Problem List (1) Knee arthropathy Conclusion/Plan: ?Septic vs reactive (Hx of rheumatoid arthritis and HLA-B27 arthopathy) WBC was 17 Blood cultures obtained Will monitor ESR and CRP. Check uric acid level Patient started on vancomycin and rocephin Pain management with IV dilaudid and oxycodone Dr Park (orthopedic) consulted (2) Rheumatoid arthritis Conclusion/Plan: Currently not on any medication. Patient used to be on Humira but stopped taking when he moved to [facility] from [place] because he did not yet establish with a PCP - Lab Results Fish Bones: 02/24/20 02:25 02/24/20 02:25 Core Measures - Anticipated LOS I expect patient to be DC'd or transferred within 96 hours.: Yes - DVT/VTE - Prophylaxis VTE/DVT Device ordered at admit?: Yes VTE/DVT Prophylaxis med ordered at admit?: Yes
[2020-02-24 05:09] LABS: MUDS CUTOFF CONCENTRATIONS CUTOFF CONC BELOW:
[2020-02-24 05:12] LABS: BILIRUBIN,URINE NEGATIVE (NEGATIVE); GLUCOSE, URINE (UA) NEGATIVE (NEGATIVE); KETONES,URINE (UA) NEGATIVE (NEGATIVE); LEUKOCYTE ESTERASE, URINE NEGATIVE (NEGATIVE); NITRITE,URINE NEGATIVE (NEGATIVE); OCCULT BLOOD,URINE LARGE (NEGATIVE); PROTEIN,URINE NEGATIVE (NEGATIVE); UROBILINOGEN,URINE 0.2 (NORMAL) E.U./dL (NORMAL)
[2020-02-24 05:16] LABS: CLARITY,URINE CLEAR (CLEAR)
[2020-02-24 05:32] LABS: BACTERIA,URINE Rare /HPF (None Seen); SQUAMOUS EPITHELIAL CELL,UR RARE Squamous (<= Few)
[2020-02-24 05:33] LABS: AMPHETAMINE SCREEN,URINE POSITIVE (NEGATIVE); BENZODIAZEPINES SCREEN, URINE NEGATIVE (NEGATIVE); COCAINE SCREEN URINE NEGATIVE (NEGATIVE); METHADONE SCREEN, URINE NEGATIVE (NEGATIVE); METHAMPHETAMINES SCREEN, URINE NEGATIVE (NEGATIVE); OPIATE SCREEN, URINE POSITIVE (NEGATIVE); OXYCODONE SCREEN, URINE POSITIVE (NEGATIVE); PROPOXYPHENE SCREEN, URINE NEGATIVE (NEGATIVE); TRICYCLIC ANTIDEPRESSANT,URINE NEGATIVE (NEGATIVE)
[2020-02-24 05:52] LABS: BASOPHILS % (AUTO) 0.5 %; EOSINOPHILS % (AUTO) 0.4 %; HGB - HEMOGLOBIN 10.1 g/dL (14.0-18.0); LYMPHOCYTES % (AUTO) 26.4 %; MEAN CORPUSCULAR HEMOGLOBIN 30.8 pg (27.0-31.0); MEAN CORPUSCULAR HGB CONC 31.7 g/dL (32.0-36.0); MEAN CORPUSCULAR VOLUME 97.3 fL (80.0-94.0); MEAN PLATELET VOLUME 7.9 fL (7.4-11.4); MONOCYTES % (AUTO) 11.5 %; NEUTROPHILS % (AUTO) 60.2 %; PLT - PLATELET COUNT 466 10^3/uL (130-450); RED BLOOD COUNT 3.28 10^6/uL (4.70-6.10); RED CELL DISTRIBUTION WIDTH 12.2 % (12.0-15.0); WHITE BLOOD COUNT 16.5 x10^3/uL (4.8-10.8)
[2020-02-24 05:58] LABS: BAND NEUTROPHILS % (MANUAL) 0 %
[2020-02-24 06:10] LABS: CREATININE 0.7 mg/dL (0.6-1.2); CRP - C-REACTIVE PROTEIN 5.7 mg/dL (0-1.0)
[2020-02-24] MEDS: HYDROmorphone 1 MG/ML CARPUJECT IVP PRN ×8 (06:10→22:45)
[2020-02-24 06:44] LABS: ABNORMAL LYMPHS % (MANUAL) 1 %; BASOPHILS # (MANUAL) 0.2 10^3/uL (0-0.1); BASOPHILS % (MANUAL) 1 %; LYMPHOCYTES # (MANUAL) 4.6 10^3/uL (1.5-3.5); LYMPHOCYTES % (MANUAL) 27 %; MONOCYTES # (MANUAL) 1.3 10^3/uL (0.0-1.0)
[2020-02-24 06:45] LABS: DIFFERENTIAL COMMENT MANUAL DIFFERENTIAL; PLATELET ESTIMATE, MANUAL INCREASED (>450,000) (NORMAL); PLATELET MORPHOLOGY NORMAL APPEARANCE (NORMAL); RBC MORPHOLOGY (MULTIPLE) NORMAL APPEARANCE (NORMAL)
[2020-02-24] MEDS ORDERED: NICOTINE 7 MG PATCH TOP PRN (09:16)
[2020-02-24] MEDS: oxyCODONE 5 MG TABLET PO PRN ×3 (09:27→19:19)
[2020-02-24] MEDS: SODIUM CHLORIDE 0.9% 1,000 ML IV SCH ×2 (09:32→22:45)
[2020-02-24] MEDS: SODIUM CHLORIDE FLUSH 0.9% 10 ML SYRINGE IVP SCH ×2 (09:32→15:42)
[2020-02-24] MEDS: SODIUM CHLORIDE FLUSH 0.9% 10 ML SYRINGE IVP PRN ×3 (10:31→21:26)
[2020-02-24] MEDS ORDERED: VANCOMYCIN INJ 1.5 GM in SODIUM CHLORIDE 0.9% 500 ML IV SCH (11:00)
--- NOTE | 2020-02-24 11:00 | PHARMACY PROGRESS NOTE ---
- Best Possible Medication History Admit Date and Time: 02/24/20 0434 Processed by: Pharmacy Medication History completed: Yes Patient Interview: Completed Secondary Source(s): Pharmacy records As the person ultimately responsible for medication therapy, providers are able to order a medication from an existing home medication list in [facility] via the "Reconcile Routine" prior to Confirmation of that medication by whanau support worker. Such practice is discouraged except when the physician, in their clinical judgment, deems that a medical need exists for a medication without regard to previous use.
--- NOTE | 2020-02-24 11:17 | CONSULTATION NOTE ---
pls verify Luis vs Nilson Sue? sentence in plan DATE OF SERVICE: 02/24/2020 Physician: Olivier Park MD REFERRING PHYSICIAN: Luis Sue of the emergency room department. CHIEF COMPLAINT: "I hurt all over." HISTORY OF PRESENT ILLNESS: Patient is a 34-year-old male who has been seen several times in the emergency room here at [facility] over the last week or so. He has a history of inflammatory arthritis, including rheumatoid arthritis, HLA-B27 positive, who has moved from [place] down to [place]. He has had a history of multiple inflammatory joints in the extremities as well as in his cervical and lumbar spine. Also, the patient has a history of chronic IV drug abuse. Approximately 3 days ago, patient presented to the emergency room here at [facility] complaining of an acutely swollen and painful right knee. An aspirate was done in the emergency room and cultures and fluid analysis done. At that time, the white count showed the white cell count to be about 15,000 (unable to locate the actual figure in the labs right here), but the final culture results from this fluid were negative for any bacterial growth. The patient was discharged from the emergency room on a tapering dose of prednisone. The patient denied any actual fevers or chills. The patient returned to the emergency room last evening still complaining of acute swelling and pain to the right knee. No new trauma to the knee. Initially noted some improvement with the prednisone, but now symptoms are still quite severe. An attempt was made in the emergency room to aspirate the knee, and this was unsuccessful. The patient was admitted to the hospital for further evaluation and treatment of his acutely swollen right knee. His screening labs also showed that he had evidence of opiates and amphetamines in his bloodstream. Speaking with the patient today, he does still complain of having had multiple episodes of swollen and painful joints in the extremities and in his spine. Most recently, he recapped what has occurred from the emergency room 3 days ago. Currently he complains primarily of his spine symptoms and the right knee. PHYSICAL EXAMINATION: The patient's left knee was inspected today. He has a 3+ swollen knee with a large effusion to the joint. There is some mild warmth. No significant erythema around the knee. Has painful range of motion in knee, as one would expect. Ligaments appear to be stable. Neurovascularly is intact distally. ASSESSMENT: Acutely inflamed right knee - atraumatic in origin. Not associated with any fractures or dislocations around the joint. PLAN: The patient is admitted to the hospital on the medical service and will be started empirically on broad spectrum antibiotics. We will determine after a repeat aspiration the need to determine if we should proceed with an arthroscopic washout of his knee or not. At this point, it does look like inflammatory arthritis to the right knee, but unclear whether it is infectious in nature or not. Agree with the idea that he should be given anti-inflammatory medications, likely another course of prednisone along with the antibiotics until we can sort out the laboratory results from the aspirate from the knee. TD: 02/24/2020 10:47 TONA
[2020-02-24 12:04] LABS: BF CLARITY HAZY; BF COLOR YELLOW; BF SOURCE KNEE; CC,BF RBC < 3000 /mm^3
[2020-02-24 12:15] LABS: LYMPHOCYTES %,BODY FLUID 16 %; MESOTHELIAL %, BF 0 %
[2020-02-24 12:16] LABS: MONOCYTES %,BODY FLUID 4 %
[2020-02-24] MEDS: VANCOMYCIN INJ 1 GM, VANCOMYCIN INJ 500 MG in SODIUM CHLORIDE 0.9% 500 ML IV SCH ×2 (12:33→22:44)
[2020-02-24] MEDS: KETOROLAC 30 MG/ML VIAL IVP PRN ×2 (14:41→21:25)
[2020-02-24] MEDS: cefTRIAXone 1 GM in SODIUM CHLORIDE 0.9% MINIBAG 100 ML IV SCH (20:41)
[2020-02-25] MEDS: HYDROmorphone 1 MG/ML CARPUJECT IVP PRN ×7 (01:01→19:57)
[2020-02-25] MEDS: SODIUM CHLORIDE FLUSH 0.9% 10 ML SYRINGE IVP SCH ×3 (01:13→18:16)
[2020-02-25] MEDS: oxyCODONE 5 MG TABLET PO PRN ×5 (02:36→20:19)
[2020-02-25] MEDS: KETOROLAC 30 MG/ML VIAL IVP PRN ×3 (05:15→18:45)
[2020-02-25 05:35] LABS: BASOPHILS # (AUTO) 0.1 10^3/uL (0.0-0.1); BASOPHILS % (AUTO) 0.8 %; EOSINOPHILS # (AUTO) 0.2 10^3/uL (0.0-0.7); EOSINOPHILS % (AUTO) 1.5 %; HGB - HEMOGLOBIN 10.2 g/dL (14.0-18.0); LYMPHOCYTES # (AUTO) 3.3 10^3/uL (1.5-3.5); LYMPHOCYTES % (AUTO) 29.7 %; MEAN CORPUSCULAR HEMOGLOBIN 29.9 pg (27.0-31.0); MEAN CORPUSCULAR HGB CONC 31.7 g/dL (32.0-36.0); MEAN CORPUSCULAR VOLUME 94.4 fL (80.0-94.0); MONOCYTES # (AUTO) 1.4 10^3/uL (0.0-1.0); MONOCYTES % (AUTO) 12.3 %; NEUTROPHILS # (AUTO) 6.1 10^3/uL (1.5-6.6); NEUTROPHILS % (AUTO) 54.7 %; PLT - PLATELET COUNT 488 10^3/uL (130-450); RED BLOOD COUNT 3.41 10^6/uL (4.70-6.10); RED CELL DISTRIBUTION WIDTH 12.2 % (12.0-15.0); WHITE BLOOD COUNT 11.2 x10^3/uL (4.8-10.8)
[2020-02-25 05:54] LABS: CALCIUM 8.4 mg/dL (8.5-10.3); CREATININE 0.6 mg/dL (0.6-1.2); CRP - C-REACTIVE PROTEIN 11.8 mg/dL (0-1.0)
--- NOTE | 2020-02-25 08:57 | PROVIDER PROGRESS NOTE ---
Assessment/Plan - Problem List (1) Monoarticular arthritis Assessment/Plan: Dr Park's input from orthopedics appreciated. The fluid that was aspirated had 13K WBC. Cultures are pending. He is on Ceftriaxone and Vanco empiric treatment currently and the serum WBC is improving. Will continue iv antibiotics until 48 hours, when cultures should return. If they are neg, Neisseria may still grow out,as it takes several more days to be identified, and would therefore switch to an empiric oral antibiotic using Doxycycline 100 mg po bid starting tomorrow. Possible DCh tomorrow. (2) Rheumatoid arthritis Assessment/Plan: He was on Humira in the past, but not currently. He moved from [place] several mos ago, and does not have a PCP yet. Will use scheduled NSAIDs (3) Anemia Assessment/Plan: Possibly due to anemia of chronic disease (RA), but will check serum B12, Folate levels and iron panel and replace if low. - Current Meds Current Meds: Current Medications Generic Name Dose Route Start Last Admin Trade Name Freq PRN Reason Stop Dose Admin Acetaminophen 650 mg 02/24/20 04:34 02/25/20 08:47 Tylenol PO 650 mg Q6HR PRN Administration Pain 1 to 4 Hydromorphone HCl 1 mg 02/24/20 04:55 02/25/20 08:25 Dilaudid Inj Carp IVP 1 mg Q2H PRN Administration PAIN 8-10 Sodium Chloride 1,000 mls @ 100 mls/hr 02/24/20 05:00 02/25/20 06:27 Normal Saline 0.9% IV 100 mls/hr .Q10H DONNA Infusion Ceftriaxone Sodium 1 gm/ 100 mls @ 200 mls/hr 02/24/20 21:00 02/24/20 21:13 Sodium Chloride IV Infused Q24H DONNA Infusion Vancomycin HCl 1 gm/ 500 mls @ 250 mls/hr 02/24/20 11:00 02/25/20 01:26 Vancomycin HCl 500 mg/ Sodium IV Infused Chloride Q12H DONNA Infusion Ketorolac Tromethamine 30 mg 02/24/20 11:19 02/25/20 05:15 Toradol Inj (30mg) IVP 02/29/20 11:18 30 mg Q6HR PRN Administration PAIN Oxycodone HCl 5 mg 02/24/20 04:34 02/25/20 08:47 Roxicodone PO 5 mg Q4HR PRN Administration Pain 5 to 7 Sodium Chloride 10 ml 02/24/20 04:34 02/24/20 21:26 Normal Saline Flush 0.9% IVP 10 ml PRN PRN Administration NEEDED PER PROVIDER ORDERS Sodium Chloride 10 ml 02/24/20 09:00 02/25/20 08:24 Normal Saline Flush 0.9% IVP 10 ml 0100,0900,1700 DONNA Administration - Lab Result Fish Bone Diagrams: 02/25/20 04:40 02/25/20 04:40 - Additional Planning My Orders: My Active Orders 02/24/20 09:16 Nicotine 7 mg Patch [Nicoderm] 1 patch TOP DAILY PRN 02/24/20 11:19 Ketorolac Inj (30Mg) [Toradol Inj (30Mg)] 30 mg IVP Q6HR PRN Subjective - Subjective Patient Reports: Feeling Better, Pain (He is able to slightly bend his right knee which she could not do yesterday without "tearing pain".), Other (He states he easily forgets stuff, this is been happening for several years however. He then reports that he was on scheduled Percocet, slow release morphine, Humira, and Prednisone.) Objective Vital Signs: Vital Signs - 24 hr 02/24/20 02/24/20 02/24/20 10:50 11:27 15:53 Temperature 36.7 C 36.7 C 36.7 C Heart Rate 83 Heart Rate [ 83 83 Brachial] Respiratory 20 20 16 Rate Blood Pressure 121/73 [Left Brachial artery] Blood Pressure 142/82 H [Right Brachial artery] O2 Saturation 97 97 98 02/24/20 02/24/20 02/25/20 20:11 23:30 00:15 Temperature 37.2 C 36.7 C 36.9 C Heart Rate Heart Rate [ 88 85 Brachial] Respiratory 16 16 Rate Blood Pressure [Left Brachial artery] Blood Pressure 123/73 122/56 L [Right Brachial artery] O2 Saturation 96 98 02/25/20 02/25/20 03:25 08:00 Temperature 37.1 C 36.5 C Heart Rate Heart Rate [ 95 77 Brachial] Respiratory 18 16 Rate Blood Pressure 119/79 [Left Brachial artery] Blood Pressure 120/76 [Right Brachial artery] O2 Saturation 98 95 Oxygen O2 Source Room air I&O (Last 24 Hrs): Intake and Output Totals x24h 02/23/20 02/24/20 02/25/20 23:59 23:59 23:59 Intake Total 2940 1270 Output Total 3800 2875 Balance -860 -1605 General: Alert, Oriented x3 HEENT: Mucous membr. moist/pink Neck: Supple, No JVD Neuro: Alert, Non Focal Cardiovascular: Regular rate Respiratory: No respiratory distress Abdomen: Soft Extremities: Other (R knee swollen, not warm or red.) - Results Results: Laboratory Results WBC 11.2 x10^3/uL (4.8-10.8) H 02/25/20 04:40 RBC 3.41 10^6/uL (4.70-6.10) L 02/25/20 04:40 Hgb 10.2 g/dL (14.0-18.0) L 02/25/20 04:40 Hct 32.2 % (42.0-52.0) L 02/25/20 04:40 MCV 94.4 fL (80.0-94.0) H 02/25/20 04:40 MCH 29.9 pg (27.0-31.0) 02/25/20 04:40 MCHC 31.7 g/dL (32.0-36.0) L 02/25/20 04:40 RDW 12.2 % (12.0-15.0) 02/25/20 04:40 Plt Count 488 10^3/uL (130-450) H 02/25/20 04:40 MPV 8.0 fL (7.4-11.4) 02/25/20 04:40 Neut # (Auto) 6.1 10^3/uL (1.5-6.6) 02/25/20 04:40 Lymph # (Auto) 3.3 10^3/uL (1.5-3.5) 02/25/20 04:40 [place] # (Auto) 1.4 10^3/uL (0.0-1.0) H 02/25/20 04:40 Eos # (Auto) 0.2 10^3/uL (0.0-0.7) 02/25/20 04:40 Baso # (Auto) 0.1 10^3/uL (0.0-0.1) 02/25/20 04:40 Absolute Nucleated RBC 0.00 x10^3/uL 02/25/20 04:40 Total Counted 100 02/24/20 05:40 Band Neuts % (Manual) 0 % (0-10) 02/24/20 05:40 Abnorm Lymph % (Manual) 1 % 02/24/20 05:40 Nucleated RBC % 0.0 /100WBC 02/25/20 04:40 Neutrophils # (Manual) 10.4 10^3/uL (1.5-6.6) H 02/24/20 05:40 Lymphocytes # (Manual) 4.6 10^3/uL (1.5-3.5) H 02/24/20 05:40 Monocytes # (Manual) 1.3 10^3/uL (0.0-1.0) H 02/24/20 05:40 Eosinophils # (Manual) 0.0 10^3/uL (0-0.7) 02/24/20 05:40 Basophils # (Manual) 0.2 10^3/uL (0-0.1) H 02/24/20 05:40 Differential Comment MANUAL DIFFERENTIAL 02/24/20 05:40 WBC Morphology NORMAL APPEARANCE (NORMAL) 02/24/20 05:40 Platelet Estimate INCREASED (>450,000) (NORMAL) 02/24/20 05:40 Platelet Morphology NORMAL APPEARANCE (NORMAL) 02/24/20 05:40 RBC Morph Micro Appear NORMAL APPEARANCE (NORMAL) 02/24/20 05:40 ESR 113 mm/Hr (0-15) H 02/25/20 04:40 Sodium 136 mmol/L (135-145) 02/25/20 04:40 Potassium 3.9 mmol/L (3.5-5.0) 02/25/20 04:40 Chloride 99 mmol/L (101-111) L 02/25/20 04:40 Carbon Dioxide 30 mmol/L (21-32) 02/25/20 04:40 Anion Gap 7.0 (6-13) 02/25/20 04:40 BUN 10 mg/dL (6-20) 02/25/20 04:40 Creatinine 0.6 mg/dL (0.6-1.2) 02/25/20 04:40 Estimated GFR (MDRD) 153 (>89) 02/25/20 04:40 Glucose 96 mg/dL (70-100) 02/25/20 04:40 Lactic Acid 1.1 mmol/L (0.5-2.2) 02/24/20 02:25 Uric Acid 3.7 mg/dL (2.6-7.2) 02/24/20 05:40 Calcium 8.4 mg/dL (8.5-10.3) L 02/25/20 04:40 Total Bilirubin 0.2 mg/dL (0.2-1.0) 02/24/20 02:25 AST 93 IU/L (10-42) H 02/24/20 02:25 ALT 109 IU/L (10-60) H 02/24/20 02:25 Alkaline Phosphatase 120 IU/L (42-121) 02/24/20 02:25 Troponin I High Sens 3.5 ng/L (2.3-19.7) 02/24/20 02:25 C-Reactive Protein 11.8 mg/dL (0-1.0) H 02/25/20 04:40 Total Protein 8.2 g/dL (6.7-8.2) 02/24/20 02:25 Albumin 3.0 g/dL (3.2-5.5) L 02/24/20 02:25 Globulin 5.2 g/dL (2.1-4.2) H 02/24/20 02:25 Albumin/Globulin Ratio 0.6 (1.0-2.2) L 02/24/20 02:25 Lipase 25 U/L (22-51) 02/24/20 02:25 Urine Color YELLOW 02/24/20 04:48 Urine Clarity CLEAR (CLEAR) 02/24/20 04:48 Urine pH 6.0 PH (5.0-7.5) 02/24/20 04:48 Ur Specific [place] >=1.030 (1.002-1.030) H 02/24/20 04:48 Urine Protein NEGATIVE mg/dL (NEGATIVE) 02/24/20 04:48 Urine Glucose (UA) NEGATIVE mg/dL (NEGATIVE) 02/24/20 04:48 Urine Ketones NEGATIVE mg/dL (NEGATIVE) 02/24/20 04:48 Urine Occult Blood LARGE (NEGATIVE) H 02/24/20 04:48 Urine Nitrite NEGATIVE (NEGATIVE) 02/24/20 04:48 Urine Bilirubin NEGATIVE (NEGATIVE) 02/24/20 04:48 Urine Urobilinogen 0.2 (NORMAL) E.U./dL (NORMAL) 02/24/20 04:48 Ur Leukocyte Esterase NEGATIVE (NEGATIVE) 02/24/20 04:48 Urine RBC 11-25 /HPF (0-5) H 02/24/20 04:48 Urine WBC 0-3 /HPF (0-3) 02/24/20 04:48 Ur Squamous Epith Cells RARE Squamous (<= Few) 02/24/20 04:48 Urine Bacteria Rare /HPF (None Seen) 02/24/20 04:48 Ur Microscopic Review INDICATED 02/24/20 04:48 Urine Culture Comments NOT INDICATED 02/24/20 04:48 Fluid Source KNEE 02/24/20 10:20 Fluid Color YELLOW 02/24/20 10:20 Fluid Clarity HAZY 02/24/20 10:20 Fluid WBC 76257 /mm^3 02/24/20 10:20 Fluid RBC < 3000 /mm^3 02/24/20 10:20 Fluid Neutrophils % 80 % 02/24/20 10:20 Fluid Lymphocytes % 16 % 02/24/20 10:20 Fluid Monocytes % 4 % 02/24/20 10:20 Fld Mesothelial Cell % 0 % 02/24/20 10:20 Fluid Crystals NONE SEEN (N) 02/24/20 10:20 Urine Opiates Screen POSITIVE (NEGATIVE) H 02/24/20 04:48 Ur Oxycodone Screen POSITIVE (NEGATIVE) H 02/24/20 04:48 Urine Methadone Screen NEGATIVE (NEGATIVE) 02/24/20 04:48 Ur Propoxyphene Screen NEGATIVE (NEGATIVE) 02/24/20 04:48 Ur Barbiturates Screen NEGATIVE (NEGATIVE) 02/24/20 04:48 Ur Tricyclics Screen NEGATIVE (NEGATIVE) 02/24/20 04:48 Ur Phencyclidine Scrn NEGATIVE (NEGATIVE) 02/24/20 04:48 Ur Amphetamine Screen POSITIVE (NEGATIVE) H 02/24/20 04:48 U Methamphetamines Scrn NEGATIVE (NEGATIVE) 02/24/20 04:48 U Benzodiazepines Scrn NEGATIVE (NEGATIVE) 02/24/20 04:48 Urine Cocaine Screen NEGATIVE (NEGATIVE) 02/24/20 04:48 U Cannabinoids Screen POSITIVE (NEGATIVE) H 02/24/20 04:48 Ethyl Alcohol < 5.0 mg/dL 02/24/20 02:25
--- NOTE | 2020-02-25 08:58 | PROVIDER PROGRESS NOTE ---
Subjective - Prog Note Date Prog Note Date: 02/25/20 Prog Note Time: 08:53 - Subjective Pt reports feeling: Improved (Less pain in knee today. Ambulating with a walker to bathroom.) Objective - Vital Signs/Intake & Output Vital Signs: Vital Signs x48h Temp Pulse Resp BP BP Pulse Ox 02/25/20 08:00 36.5 C 77 16 119/79 95 02/25/20 03:25 37.1 C 95 18 120/76 98 Intake & Output: Intake & Output 02/22/20 02/23/20 02/24/20 02/25/20 23:59 23:59 23:59 23:59 Intake Total 2940 1270 Output Total 3800 3025 Balance -860 -1605 - Lab Results Fish Bones: 02/25/20 04:40 02/25/20 04:40 Other Labs: Lab Results x24hrs 02/25/20 02/25/20 02/25/20 Range/Units 04:40 04:40 04:40 WBC 11.2 H (4.8-10.8) x10^3/uL RBC 3.41 L (4.70-6.10) 10^6/uL Hgb 10.2 L (14.0-18.0) g/dL Hct 32.2 L (42.0-52.0) % MCV 94.4 H (80.0-94.0) fL MCH 29.9 (27.0-31.0) pg MCHC 31.7 L (32.0-36.0) g/dL RDW 12.2 (12.0-15.0) % Plt Count 488 H (130-450) 10^3/uL MPV 8.0 (7.4-11.4) fL Neut # (Auto) 6.1 (1.5-6.6) 10^3/uL Lymph # (Auto) 3.3 (1.5-3.5) 10^3/uL [place] # (Auto) 1.4 H (0.0-1.0) 10^3/uL Eos # (Auto) 0.2 (0.0-0.7) 10^3/uL Baso # (Auto) 0.1 (0.0-0.1) 10^3/uL Absolute Nucleated RBC 0.00 x10^3/uL Nucleated RBC % 0.0 /100WBC ESR 113 H (0-15) mm/Hr Sodium 136 (135-145) mmol/L Potassium 3.9 (3.5-5.0) mmol/L Chloride 99 L (101-111) mmol/L Carbon Dioxide 30 (21-32) mmol/L Anion Gap 7.0 (6-13) BUN 10 (6-20) mg/dL Creatinine 0.6 (0.6-1.2) mg/dL Estimated GFR (MDRD) 153 (>89) Glucose 96 (70-100) mg/dL Calcium 8.4 L (8.5-10.3) mg/dL C-Reactive Protein 11.8 H (0-1.0) mg/dL Fluid Source Fluid Color Fluid Clarity Fluid WBC /mm^3 Fluid RBC /mm^3 Fluid Neutrophils % % Fluid Lymphocytes % % Fluid Monocytes % % Fld Mesothelial Cell % % Fluid Crystals (N) 02/24/20 02/24/20 Range/Units 10:20 10:20 WBC (4.8-10.8) x10^3/uL RBC (4.70-6.10) 10^6/uL Hgb (14.0-18.0) g/dL Hct (42.0-52.0) % MCV (80.0-94.0) fL MCH (27.0-31.0) pg MCHC (32.0-36.0) g/dL RDW (12.0-15.0) % Plt Count (130-450) 10^3/uL MPV (7.4-11.4) fL Neut # (Auto) (1.5-6.6) 10^3/uL Lymph # (Auto) (1.5-3.5) 10^3/uL [place] # (Auto) (0.0-1.0) 10^3/uL Eos # (Auto) (0.0-0.7) 10^3/uL Baso # (Auto) (0.0-0.1) 10^3/uL Absolute Nucleated RBC x10^3/uL Nucleated RBC % /100WBC ESR (0-15) mm/Hr Sodium (135-145) mmol/L Potassium (3.5-5.0) mmol/L Chloride (101-111) mmol/L Carbon Dioxide (21-32) mmol/L Anion Gap (6-13) BUN (6-20) mg/dL Creatinine (0.6-1.2) mg/dL Estimated GFR (MDRD) (>89) Glucose (70-100) mg/dL Calcium (8.5-10.3) mg/dL C-Reactive Protein (0-1.0) mg/dL Fluid Source KNEE Fluid Color YELLOW Fluid Clarity HAZY Fluid WBC 71159 /mm^3 Fluid RBC < 3000 /mm^3 Fluid Neutrophils % 80 % Fluid Lymphocytes % 16 % Fluid Monocytes % 4 % Fld Mesothelial Cell % 0 % Fluid Crystals NONE SEEN (N) - Other Results/Comments Other Results/Comments: EXAM: Left knee - Mild effusion. Minimal pain with 30 degree ROM. N/V ok distally. A: Inflammatory arthritis of left knee, likely due to inflammatory arthritis (?RA, ??Ankylosing spondylitis). Less likely due to septic joint, although will wait for final culture results, especially the Neissiera Gonorhea clutures P: Continue with antibiotics, pending cultures. Up ad satinder.
[2020-02-25] MEDS: SODIUM CHLORIDE FLUSH 0.9% 10 ML SYRINGE IVP PRN ×4 (10:24→15:25)
[2020-02-25] MEDS: SODIUM CHLORIDE 0.9% 1,000 ML IV SCH (10:41)
[2020-02-25] MEDS: VANCOMYCIN INJ 1 GM, VANCOMYCIN INJ 500 MG in SODIUM CHLORIDE 0.9% 500 ML IV SCH (11:59)
[2020-02-25 19:38] VITALS: BP 131/84
[2020-02-25] MEDS: cefTRIAXone 1 GM in SODIUM CHLORIDE 0.9% MINIBAG 100 ML IV SCH (20:20)
[2020-02-25] MEDS ORDERED: predniSONE 10 MG TABLET PO STA (21:20)
--- NOTE | 2020-02-25 23:10 | PROVIDER PROGRESS NOTE ---
Senior Strategy Manager Note - Senior Strategy Manager Note Senior Strategy Manager Note: It was brought to my attention around 8:30 PM that the patient was crying in pain. I went in to inquire where his pain was specifically located. He reported that he does not know and continued to cry. At this point the patient was on IV Dilaudid every 2 hours PRN, Toradol and oxycodone. He has history of rheumatoid arthritis and is also HLA B 27+. As a result I prescribed prednisone 10 mg oral. Shortly after this the patient woke up to have a shower because he reported that it gave him some relief. However he had pulled off his IV line in order to do so and it was dripping blood. Out of concern the nursing specialist tried to address this and he got significantly irritated. This subsequently escalated and he demanded to leave AGAINST MEDICAL ADVICE. At this point he refused to listen to any reasoning and got somewhat belligerent.
--- NOTE | 2020-02-27 01:39 | Discharge Plan ---
Discharge Plan Problem Reviewed?: Yes Disposition: 07 Against Medical Advice Condition: Stable No Smoking: If you smoke, Please STOP! Call for help.
--- NOTE | 2020-02-27 01:49 | DISCHARGE SUMMARY ---
Discharge Summary Admit Date: 02/24/20 Discharge Date: 02/25/20 Discharging Provider: Lou Main Condition at Discharge: Stable Discharge Disposition: 07 Against Medical Advice - DIAGNOSES Admission Diagnoses: 1. Knee Arthropathy 2. Rheumatoid Arthritis Discharge Diagnoses with Status of Each Condition: 1. Knee Arthropathy: Improved 2. Rheumatoid Arthritis: Chronic - HPI History of Present Illness: Patient is a 34 y/o male with Hx of rheumatoid arthritis, ?reactive joint disease and HLA-B27 positive who presented to the ED via EMS with severe right knee pain and swelling. This is his third visit to the ED this week. On 0 the joint was aspirated. It showed many WBC's but there has been no growth on culture of the synovial fluid to date. Attempt at aspirating the joint today produced nothing. He was found to have a WBC of 17 and a Temp of 37.8C. His ESR was 85 and his CRP was 6.8. He denied any injury of puncture to the knee. He has not been sexually active for over a year and denies any previous history of STD's, urethral discharge or pain. He has a history of heroine and methamphetamine IV drug use. He denies chest pain, dyspnea, abd pain, nausea or vomiting. As a result of his symptoms and lab findings, he was presented for admission. Dr Park with orthopedics was contacted by the ED physician and will see the patient later today. - HOSPITAL COURSE Hospital Course: Patient pain was addressed with Dilaudid IV, oxycodone and Toradol. Patient was seen by Dr. Park with orthopedic surgery. The left knee was aspirated. Analysis of the fluid showed only 13,000 white blood cells. It was felt that septic joint was less likely and that his pain was more likely due to inflammatory arthritis. However cultures were pending. Patient was on vancomycin and Rocephin. Recommendations were to continue antibiotics while awaiting cultures. Patient was to ambulate as tolerated Blood cultures to date have been no growth On , it was brought to my attention around 8:30 PM that the patient was crying in pain. I went in to inquire where his pain was specifically located. He reported that he does not know and continued to cry. At this point the patient was on IV Dilaudid every 2 hours PRN, Toradol and oxycodone. He has history of rheumatoid arthritis and is also HLA B 27+. As a result I prescribed prednisone 10 mg oral. Shortly after this the patient woke up to have a shower because he reported that it gave him some relief. However he had pulled off his IV line in order to do so and it was dripping blood. Out of concern the patient care nursing assistant tried to address this and he got significantly irritated. This subsequently escalated and he demanded to leave AGAINST MEDICAL ADVICE. At this point he refused to listen to any reasoning and became somewhat belligerent. He declined any offer to assist him.He even declined a pair of socks and walked out barefooted - ALLERGIES Allergies/Adverse Reactions: Allergies Allergy/AdvReac Type Severity Reaction Status Date / Time No Known Drug Allergies Allergy Verified 02/24/20 02:04 - MEDICATIONS Home Medications: Ambulatory Orders Medication Instructions Recorded Confirmed Oxycodone HCl/Acetaminophen 1 - 2 each PO Q6H PRN #10 tablet 02/16/20 02/24/20 [Percocet 5-325 mg Tablet] predniSONE [Deltasone] 20 mg PO [id number] #21 tab 02/16/20 02/24/20 - LABS Result Diagrams: 02/25/20 04:40 02/25/20 04:40 - TIME SPENT Time Spent in Discharge (Minutes): 15
== END 2020-02-25 22:40 | disposition left against medical advice (07) | DRG 554 ==
LOC: EDUNIT# → ED 01:54 → MS2 04:34
PROVIDERS: ADMIT Internal Medicine; ATTEND Internal Medicine
DX: M13.161 Monoarthritis, not elsewhere classified, right knee (principal); R50.9 Fever, unspecified; M06.9 Rheumatoid arthritis, unspecified; D64.9 Anemia, unspecified; R76.8 Other specified abnormal immunological findings in serum; R82.5 Elevated urine levels of drugs, medicaments and biological substances; Z53.29 Procedure and treatment not carried out because of patient's decision for other reasons; Z20.828 Contact with and (suspected) exposure to other viral communicable diseases
CPT/HCPCS: 20610; 36415; 71045; 73562; 80048; 80053; 80306; 80320; 81001; 81599; 83605; 83690; 84484; 84550; 85025; 85651; 86140; 87040; 87070; 87205; 87635; 89051; 89060; 93005; 96365; 96367; 96375; 96376; 99285; A9270; J1170; J3370; 80202; 81003; 82607; 82746; 83540; 84157; 84466; 87086

== ENCOUNTER 2020-05-20 16:53 | Emergency (ER) | payer MEDICAID ==
[2020-05-20] MEDS ORDERED: predniSONE 20 MG TABLET PO STA (17:46)
[2020-05-20] MEDS ORDERED: MELOXICAM 7.5 MG TABLET PO STA (17:46)
[2020-05-20] MEDS ORDERED: HYDROcod/ACETAM 5/325 MG TABLET PO STA (17:46)
--- NOTE | 2020-05-20 17:51 | ED Physician Documentation ---
History of Present Illness - Stated complaint Stated Complaint: RT LEG/KNEE PX - Chief complaint Chief Complaint: General - History obtained from History obtained from: Patient - History of Present Illness Timing: Chronic Pain level max: 8 Pain level now: 8 - Additonal information Additional information: Patient is a 35-year-old male who presents to the emergency department with ongoing right knee pain. He has polyarthralgias. States normally is on steroids and vicodin. Has not followed up with the PCP or specialist regarding this. Worse with movement. Better with steroids. No fevers. No chills. Review of Systems Constitutional: denies: Fever, Chills Respiratory: denies: Cough GI: denies: Nausea, Vomiting, Diarrhea Musculoskeletal: reports: Other (Denies any trauma) Neurologic: denies: Focal weakness, Numbness PD PAST MEDICAL HISTORY - Past Medical History Cardiovascular: None Respiratory: None Neuro: None Endocrine/Autoimmune: Other GI: None : None HEENT: None Psych: Anxiety, Panic attacks Musculoskeletal: Rheumatoid arthritis Derm: None - Past Surgical History Past Surgical History: No Ortho: Other - Present Medications Home Medications: Ambulatory Orders Medication Instructions Recorded Confirmed Oxycodone HCl/Acetaminophen 1 - 2 each PO Q6H PRN #10 tablet 02/16/20 02/24/20 [Percocet 5-325 mg Tablet] predniSONE [Deltasone] 20 mg PO [id number] #21 tab 02/16/20 02/24/20 Oxycodone HCl/Acetaminophen 1 - 2 each PO Q6H PRN #14 tablet 05/03/20 [Percocet 5-325 mg Tablet] predniSONE [Deltasone] 20 mg PO [id number] #21 tab 05/03/20 HYDROcod/ACETAM 5/325 [[place] 5/325] 1 - 2 ea PO Q6H PRN #14 tablet 05/20/20 Meloxicam [Mobic] 7.5 mg PO BID PRN #20 tablet 05/20/20 predniSONE [Deltasone] 10 mg PO [id number] #42 tab 05/20/20 - Allergies Allergies/Adverse Reactions: Allergies Allergy/AdvReac Type Severity Reaction Status Date / Time No Known Drug Allergies Allergy Verified 05/20/20 17:02 - Social History Does the pt smoke?: No Smoking Status: Never smoker Does the pt drink ETOH?: No Does the pt have substance abuse?: Yes Substance Use and Type: Meth - Immunizations Immunizations are current?: No Immunizations: No immun - POLST Patient has POLST: No POLST Status: Full Code PD ED PE NORMAL - Vitals Vital signs reviewed: Yes - General General: Alert and oriented X 3, No acute distress - HEENT HEENT: Moist mucous membranes - Neck Neck: Supple, no meningeal sign - Cardiac Cardiac: RRR - Respiratory Respiratory: No respiratory distress, Clear bilaterally - Derm Derm: Warm and dry - Extremities Extremities: Other (Tenderness and swelling to the right knee. No erythema. Slight deformity to the right foot as well. No evidence of septic joints. No evidence of infection) - Neuro Neuro: Alert and oriented X 3 Results - Vitals Vitals: Vital Signs - 24 hr 05/20/20 05/20/20 05/20/20 16:57 17:02 18:06 Temperature 37.1 C 36.7 C Heart Rate 131 H 112 H 100 Respiratory 20 16 16 Rate Blood Pressure 117/72 120/69 132/72 H O2 Saturation 97 98 98 Oxygen O2 Source Room air PD MEDICAL DECISION MAKING - ED course Complexity details: reviewed old records, considered differential, d/w patient ED course: 35-year-old male with positive HLA-B27, likely reactive arthritis. We will place him back on steroids and have him follow-up with a primary care provider and likely orthopedics. Patient will likely need a referral eventually to rheumatology, but transportation is difficult for him. Therefore we will likely start with a primary care provider [place]. Patient counseled regarding signs and symptoms for which I believe and urgent re-evaluation would be necessary. Patient with good understanding of and agreement to plan and is comfortable going home at this time This document was made in part using voice recognition software. While efforts are made to proofread this document, sound alike and grammatical errors may occur. Departure - Departure Disposition: 01 Home, Self Care Clinical Impression: HLA-B27 positive arthropathy Condition: Good Instructions: Arthritis Follow-Up: Juan Tierney MD [Provider Admit Priv/Credential] - [facility] [Provider Group] [facility] [Provider Group] Abbie Rosa MD [Provider Admit Priv/Credential] - Within 1 week Prescriptions: predniSONE [Deltasone] 10 mg PO [id number] #42 tab Meloxicam [Mobic] 7.5 mg PO BID PRN #20 tablet PRN Reason: Pain HYDROcod/ACETAM 5/325 [[place] 5/325] 1 - 2 ea PO Q6H PRN #14 tablet PRN Reason: Pain Comments: Return if you worsen. follow up with one of the doctors listed on your papers today for further care. Do not drink alcohol or drive while on narcotic pain medicine. Note that many narcotic pain relievers also contain tylenol/acetaminophen. Please ensure that your total dose of acetaminophen from all sources does not exceed 3 grams (3000mg) per day. You may constipated on this medication, take a stool softener such as "Colace" twice a day while you are on it. Also recommend a nwxz-olv-izumofm laxative such as senna or MiraLAX any day that you do not have a bowel movement. If you received narcotic pain medication in the emergency department, do not drive or operate machinery for the next 24 hours. Discharge Date/Time: 05/20/20 18:09
[2020-05-20 18:07] VITALS: BP 132/72
== END 2020-05-20 18:09 | disposition home or self-care (01) ==
LOC: ED 16:53
DX: R78.89 Finding of other specified substances, not normally found in blood (principal); D72.89 Other specified disorders of white blood cells; M25.561 Pain in right knee; G89.29 Other chronic pain; M06.9 Rheumatoid arthritis, unspecified
CPT/HCPCS: 99283; 99284; A9270; J7512

== ENCOUNTER 2020-06-17 11:24 | Emergency (ER) | payer MEDICAID ==
[2020-06-17 12:09] VITALS: BP 105/66
[2020-06-17] MEDS ORDERED: KETOROLAC 60 MG/2 ML VIAL IM STA (12:17)
--- NOTE | 2020-06-17 12:18 | ED Physician Documentation ---
History of Present Illness - Stated complaint Stated Complaint: BODY PX - Chief complaint Chief Complaint: General - History obtained from History obtained from: Patient - Additonal information Additional information: 35-year-old gentleman with chronic pain due to rheumatoid arthritis presents to the emergency department, it is his eighth visit so far this year mostly for chronic pain. He has no acute complaints, just wants relief from his chronic pain which is in bones and joints. He has not been able to set up primary care or rheumatology. Note made of his tachycardia which responds easily to time, when he is at rest and not being spoken to on the monitor his heart rate is about 80, but when he becomes anxious it skyrocket's. Review of Systems Constitutional: denies: Fever, Chills Cardiac: denies: Chest pain / pressure, Palpitations Respiratory: denies: Dyspnea, Cough PD PAST MEDICAL HISTORY - Past Medical History Past Medical History: Yes Cardiovascular: None Respiratory: None Neuro: None Endocrine/Autoimmune: Other GI: None : None HEENT: None Psych: Anxiety, Panic attacks Musculoskeletal: Rheumatoid arthritis Derm: None - Past Surgical History Past Surgical History: No Ortho: Other - Present Medications Home Medications: Ambulatory Orders Medication Instructions Recorded Confirmed Oxycodone HCl/Acetaminophen 1 - 2 each PO Q6H PRN #10 tablet 02/16/20 02/24/20 [Percocet 5-325 mg Tablet] predniSONE [Deltasone] 20 mg PO [id number] #21 tab 02/16/20 02/24/20 Oxycodone HCl/Acetaminophen 1 - 2 each PO Q6H PRN #14 tablet 05/03/20 [Percocet 5-325 mg Tablet] predniSONE [Deltasone] 20 mg PO [id number] #21 tab 05/03/20 HYDROcod/ACETAM 5/325 [[place] 5/325] 1 - 2 ea PO Q6H PRN #14 tablet 05/20/20 Meloxicam [Mobic] 7.5 mg PO BID PRN #20 tablet 05/20/20 predniSONE [Deltasone] 10 mg PO [id number] #42 tab 05/20/20 - Allergies Allergies/Adverse Reactions: Allergies Allergy/AdvReac Type Severity Reaction Status Date / Time No Known Drug Allergies Allergy Verified 06/17/20 11:40 - Social History Does the pt smoke?: Yes Smoking Status: Current every day smoker Does the pt drink ETOH?: No Does the pt have substance abuse?: Yes Substance Use and Type: Marijuana - Immunizations Immunizations are current?: No Immunizations: No immun - POLST Patient has POLST: No POLST Status: Full Code PD ED PE NORMAL - Vitals Vital signs reviewed: Yes - General General: Alert and oriented X 3, Other (Calm at rest but becomes tearful when I tell him that we could no longer prescribe him pain medication.) - Extremities Extremities: No deformity, No tenderness to palpate, Normal ROM s pain, Other (Large chronic effusion of the right knee without evidence of acute infection.) - Neuro Neuro: Alert and oriented X 3, Normal speech - Psych Psych: Other (anxiety) Results - Vitals Vitals: Vital Signs - 24 hr 06/17/20 06/17/20 06/17/20 11:35 12:07 12:30 Temperature 37.0 C 36.6 C 36.5 C Heart Rate 131 H 113 H 95 Respiratory 26 H 22 22 Rate Blood Pressure 143/81 H 105/66 O2 Saturation 100 100 97 Oxygen O2 Source Room air PD MEDICAL DECISION MAKING - ED course ED course: 35-year-old gentleman with chronic pain, no acute complaints presents to the emergency department. He is tearful when told we would no longer be able to prescribe him pain medication ongoing from the emergency department and he really needed to set up primary care for ongoing management. Departure - Departure Disposition: 01 Home, Self Care Clinical Impression: Rheumatoid arthritis Qualifiers: Rheumatoid arthritis location: multiple sites Rheumatoid factor presence: unspecified presence Qualified Code(s): M06.9 - Rheumatoid arthritis, unspecified Chronic pain Qualifiers: Chronic pain type: other chronic pain Qualified Code(s): G89.29 - Other chronic pain Condition: Stable Record reviewed to determine appropriate education?: Yes Instructions: ED Chronic Pain Management Comments: The policy of this emergency department is to not give more than 3 prescriptions for narcotics or other controlled substances in any 1 year. You have already surpassed this benchmark and we cannot prescribe narcotics for you. I encourage you to follow up with your primary care physician or to establish care with a primary care physician for ongoing pain management. You are always welcome to seek emergency care here for this or new issues but there will likely be limitations in the prescription of narcotic pain medication. Discharge Date/Time: 06/17/20 12:50
== END 2020-06-17 12:50 | disposition home or self-care (01) ==
LOC: ED 11:24
DX: M06.9 Rheumatoid arthritis, unspecified (principal); G89.29 Other chronic pain; F17.200 Nicotine dependence, unspecified, uncomplicated
CPT/HCPCS: 36415; 96372; 99283

== ENCOUNTER 2020-07-02 11:16 | Emergency (ER) | payer MEDICAID ==
[2020-07-02] MEDS ORDERED: predniSONE 20 MG TABLET PO STA (13:26)
[2020-07-02] MEDS ORDERED: KETOROLAC 60 MG/2 ML VIAL IM STA (13:26)
--- NOTE | 2020-07-02 13:29 | ED Physician Documentation ---
History of Present Illness - Stated complaint Stated Complaint: RA PAIN - Chief complaint Chief Complaint: Back Pain - History obtained from History obtained from: Patient - Additonal information Additional information: Patient returns emergency department complaining of pain in his spine and bilateral knees, which he attributes to a flareup of his rheumatoid arthritis. Patient was just seen the th for this, and states he has not yet seen his primary care physician. He has not taken anything at home for this. He has not been able to get established with a primary care physician in the 2 years that he is lived down in [place]. He has come to the ER for his care and states that previously, when he lived in [facility], he received care through [facility]. The patient has been flagged to receive no narcotics in the emergency department, and was not prescribed anything last time. Patient denies fevers or chills. He states the pain is about the same character as his normal flareups. He does note that he has a an appointment with primary care on 24 July. No other complaints at this time. Review of Systems Ten Systems: 10 systems reviewed and negative Constitutional: reports: Reviewed and negative Eyes: reports: Reviewed and negative Ears: reports: Reviewed and negative Nose: reports: Reviewed and negative Throat: reports: Reviewed and negative Cardiac: reports: Reviewed and negative Respiratory: reports: Reviewed and negative GI: reports: Reviewed and negative : reports: Reviewed and negative Skin: reports: Reviewed and negative Musculoskeletal: reports: Neck pain, Joint pain Neurologic: reports: Reviewed and negative Psychiatric: reports: Reviewed and negative Endocrine: reports: Reviewed and negative Immunocompromised: reports: Reviewed and negative PD PAST MEDICAL HISTORY - Past Medical History Cardiovascular: None Respiratory: None Neuro: None Endocrine/Autoimmune: Other GI: None : None HEENT: None Psych: Anxiety, Panic attacks Musculoskeletal: Rheumatoid arthritis Derm: None - Past Surgical History Past Surgical History: No Ortho: Other - Present Medications Home Medications: Ambulatory Orders Medication Instructions Recorded Confirmed Oxycodone HCl/Acetaminophen 1 - 2 each PO Q6H PRN #10 tablet 02/16/20 02/24/20 [Percocet 5-325 mg Tablet] predniSONE [Deltasone] 20 mg PO [id number] #21 tab 02/16/20 02/24/20 Oxycodone HCl/Acetaminophen 1 - 2 each PO Q6H PRN #14 tablet 07/31/20 [Percocet 5-325 mg Tablet] predniSONE [Deltasone] 20 mg PO [id number] #21 tab 05/03/20 HYDROcod/ACETAM 5/325 [[place] 5/325] 1 - 2 ea PO Q6H PRN #14 tablet 05/20/20 Meloxicam [Mobic] 7.5 mg PO BID PRN #20 tablet 05/20/20 predniSONE [Deltasone] 10 mg PO [id number] #42 tab 05/20/20 Ibuprofen [Motrin] 800 mg PO Q8H PRN #30 tablet 07/02/20 predniSONE [Prednisone] 60 mg PO DAILY #15 tablet 07/02/20 - Allergies Allergies/Adverse Reactions: Allergies Allergy/AdvReac Type Severity Reaction Status Date / Time No Known Drug Allergies Allergy Verified 07/02/20 11:18 - Social History Does the pt smoke?: Yes Smoking Status: Current every day smoker Does the pt drink ETOH?: No Does the pt have substance abuse?: Yes - Immunizations Immunizations are current?: No Immunizations: No immun - POLST Patient has POLST: No POLST Status: Full Code PD ED PE NORMAL - Vitals Vital signs reviewed: Yes - General General: Alert and oriented X 3, Other (Patient appears generally uncomfortable and is crying.) - HEENT HEENT: Atraumatic, PERRL, EOMI, Moist mucous membranes - Neck Neck: Supple, no meningeal sign - Cardiac Cardiac: RRR, No murmur - Respiratory Respiratory: No respiratory distress, Clear bilaterally - Derm Derm: Warm and dry - Extremities Extremities: No deformity, Other (Diffuse muscular tenderness over paraspinal musculature of the back. Right knee is mildly swollen and moderately tender. Range of motion.) - Neuro Neuro: Alert and oriented X 3 - Psych Psych: Normal mood, Normal affect Results - Vitals Vitals: Vital Signs - 24 hr 07/02/20 07/02/20 11:20 12:50 Temperature 37 C Heart Rate 114 H 100 Respiratory 24 16 Rate Blood Pressure 132/89 H 136/85 H O2 Saturation 99 99 Oxygen O2 Source Room air PD MEDICAL DECISION MAKING - ED course Complexity details: considered differential, d/w patient ED course: Patient was treated symptomatically with Toradol and prednisone. We have discussed that he is not a candidate for narcotic pain medication. We have discussed ongoing need for primary care involvement in the patient's healthcare. He most likely would benefit from chronic pain management, as well. We discussed the usual indications for return Departure - Departure Disposition: 01 Home, Self Care Clinical Impression: Acute pain Condition: Stable Instructions: ED Chronic Pain Management Prescriptions: Ibuprofen [Motrin] 800 mg PO Q8H PRN #30 tablet PRN Reason: PAIN &/OR FEVER predniSONE [Prednisone] 60 mg PO DAILY #15 tablet
[2020-07-02 13:48] VITALS: BP 135/82
== END 2020-07-02 13:53 | disposition home or self-care (01) ==
LOC: EDUNIT# → ED 11:16
DX: M54.9 Dorsalgia, unspecified (principal); M54.2 Cervicalgia; M25.561 Pain in right knee; M25.562 Pain in left knee; M06.9 Rheumatoid arthritis, unspecified; F17.200 Nicotine dependence, unspecified, uncomplicated
CPT/HCPCS: 96372; 99283; 99284; J7512

== ENCOUNTER 2020-07-24 16:25 | Outpatient (CLI) | payer MEDICAID ==
[2020-07-24 18:01] LABS: HGB - HEMOGLOBIN 10.9 g/dL (14.0-18.0); MEAN CORPUSCULAR HEMOGLOBIN 27.2 pg (27.0-31.0); MEAN CORPUSCULAR HGB CONC 30.9 g/dL (32.0-36.0); MEAN PLATELET VOLUME 7.9 fL (7.4-11.4); RED BLOOD COUNT 4.01 10^6/uL (4.70-6.10); RED CELL DISTRIBUTION WIDTH 15.7 % (12.0-15.0); WHITE BLOOD COUNT 12.4 x10^3/uL (4.8-10.8)
[2020-07-24 18:24] LABS: ALBUMIN 3.6 g/dL (3.2-5.5); ALBUMIN/GLOBULIN RATIO 0.6 (1.0-2.2); BILIRUBIN,TOTAL 0.2 mg/dL (0.2-1.0); CALCIUM 9.6 mg/dL (8.5-10.3); CREATININE 0.6 mg/dL (0.6-1.2); CRP - C-REACTIVE PROTEIN 13.6 mg/dL (0-1.0); TOTAL PROTEIN 9.7 g/dL (6.7-8.2); URIC ACID 4.4 mg/dL (2.6-7.2)
[2020-07-24 18:26] LABS: RHEUMATOID FACTOR NEGATIVE (Negative)
[2020-07-26 09:51] LABS: ANA SCREEN NEGATIVE (NEGATIVE)
== END 2020-07-24 23:59 | disposition home or self-care (01) ==
LOC: LAB.WCP 16:25
PROVIDERS: ATTEND Family Medicine
DX: M62.830 Muscle spasm of back (principal); I10 Essential (primary) hypertension; M20.30 Hallux varus (acquired), unspecified foot; R79.89 Other specified abnormal findings of blood chemistry
CPT/HCPCS: 36415; 80053; 84443; 84550; 85027; 85651; 86038; 86140; 86430

== ENCOUNTER 2020-09-28 17:37 | Emergency (ER) | payer MEDICAID ==
[2020-09-28] MEDS ORDERED: HYDROmorphone 1 MG/ML CARPUJECT IM STA (18:56)
[2020-09-28] MEDS ORDERED: predniSONE 20 MG TABLET PO STA (18:59)
--- NOTE | 2020-09-28 19:15 | ED Physician Documentation ---
History of Present Illness - Stated complaint Stated Complaint: PX FROM KNEES DOWN - Chief complaint Chief Complaint: Ext Problem - History obtained from History obtained from: Patient - Additonal information Additional information: 35-year-old male presents the emergency department for treatment of chronic lower extremity pain. He reports a history of RA. He has been seen in this emergency department at least 10 times this year for similar. He did ultimately established with Dr. Frances on July 22 of this year. He was started on a very long course of prednisone. He was prescribed 60 mg a day. He was to follow-up 1 month later on August 22 but he missed that appointment. Since stopping the prednisone he has had persistently worsening pain and feels that he is no longer able to walk. He has no fevers or recent falls. He has been taking Motrin without relief of pain. He is trying to schedule a new appointment with Dr. Frances. He is requesting to resume his steroids. Review of Systems Constitutional: denies: Fever, Chills Eyes: reports: Reviewed and negative Ears: reports: Reviewed and negative Nose: reports: Reviewed and negative Throat: reports: Reviewed and negative Cardiac: reports: Reviewed and negative Respiratory: reports: Reviewed and negative GI: reports: Reviewed and negative : reports: Reviewed and negative Skin: reports: Reviewed and negative Musculoskeletal: reports: Joint pain (BLE hip, knees, feet) Neurologic: reports: Reviewed and negative PD PAST MEDICAL HISTORY - Past Medical History Past Medical History: Yes Cardiovascular: None Respiratory: None Neuro: None Endocrine/Autoimmune: Other GI: None : None HEENT: None Psych: Anxiety, Panic attacks Musculoskeletal: Rheumatoid arthritis Derm: None - Past Surgical History Past Surgical History: No Ortho: Other - Present Medications Home Medications: Ambulatory Orders Medication Instructions Recorded Confirmed Oxycodone HCl/Acetaminophen 1 - 2 each PO Q6H PRN #10 tablet 02/16/20 02/24/20 [Percocet 5-325 mg Tablet] predniSONE [Deltasone] 20 mg PO [id number] #21 tab 02/16/20 02/24/20 Oxycodone HCl/Acetaminophen 1 - 2 each PO Q6H PRN #14 tablet 05/03/20 [Percocet 5-325 mg Tablet] predniSONE [Deltasone] 20 mg PO [id number] #21 tab 05/03/20 HYDROcod/ACETAM 5/325 [[place] 5/325] 1 - 2 ea PO Q6H PRN #14 tablet 05/20/20 Meloxicam [Mobic] 7.5 mg PO BID PRN #20 tablet 05/20/20 predniSONE [Deltasone] 10 mg PO [id number] #42 tab 05/20/20 Ibuprofen [Motrin] 800 mg PO Q8H PRN #30 tablet 07/02/20 predniSONE [Prednisone] 60 mg PO DAILY #15 tablet 07/02/20 oxyCODONE/ACET 5/325 [Percocet 5 1 each PO ONCE PRN #10 tablet 09/28/20 mg/325 mg] predniSONE [Deltasone] 60 mg PO DAILY #42 tab 09/28/20 - Allergies Allergies/Adverse Reactions: Allergies Allergy/AdvReac Type Severity Reaction Status Date / Time No Known Drug Allergies Allergy Verified 09/28/20 17:48 - Social History Does the pt smoke?: Yes Smoking Status: Current every day smoker Does the pt drink ETOH?: No Does the pt have substance abuse?: Yes Substance Use and Type: Marijuana, Meth - Immunizations Immunizations are current?: No Immunizations: No immun - POLST Patient has POLST: No POLST Status: Full Code PD ED PE EXPANDED - General General: Alert, In Pain - Cardiac Cardiac: Regular Rate, Radial strong equal, Cap refill < 2 sec. No: Murmur Present - Respiratory Respiratory: Clear to ausultation mervat. No: Distress, Labored - Abdomen Abdomen: Normal Bowel sounds. No: Tender to palpation - Extremities Extremities: Normal, Tenderness (Mild tenderness of the right knee. Small effusion noted. Normal flexion extension. Patient is able to stand and bear weight utilizing his cane and take a few halting steps.). No: Deformity - Neuro Neuro: Alert and Oriented X 3 - GCS Eye Opening: Spontaneous Motor: Obeys Commands Verbal: Oriented Total: 15 Results - Vitals Vitals: Vital Signs - 24 hr 09/28/20 17:43 Temperature 36.4 C L Heart Rate 97 Respiratory 18 Rate Blood Pressure 123/73 O2 Saturation 99 Oxygen O2 Source Room air PD MEDICAL DECISION MAKING - ED course Complexity details: reviewed old records, re-evaluated patient, considered differential, d/w patient ED course: 35-year-old male who has a history of RA and chronic pain syndrome presents to the emergency department with worsening lower extremity pain. He had established with Dr. Frances but due to life events missed a follow-up appointment in August. He has not had any steroids for about 6 weeks and feel that the pain is too severe now limiting his ability to walk. I will give this gentleman a 2-week course of the prednisone in the fashion that Dr. Frances had prescribed it. I will also write a very limited prescription for oxycodone. It was expressed to him that he must continue to establish and routinely follow-up with his primary care providers for treatment of his longstanding pain. On exam and history there is no concerns for recent falls trauma fractures or infection. Departure - Departure Disposition: Home, Self Care Clinical Impression: Rheumatoid arthritis flare Condition: Stable Record reviewed to determine appropriate education?: Yes Follow-Up: Juan Tierney MD [Primary Care Provider] - Within 1 week [facility] [Provider Group] Prescriptions: predniSONE [Deltasone] 60 mg PO DAILY #42 tab oxyCODONE/ACET 5/325 [Percocet 5 mg/325 mg] 1 each PO ONCE PRN #10 tablet PRN Reason: Pain Comments: Johnathan I am resuming you on the steroids and the way that Dr. Frances had prescribed him. Please take 60 mg daily. I am only giving you a 2-week course. Do not take ibuprofen while you are taking the steroids. This is dangerous. Do not take other medications like Aleve or naproxen as well. I have also written for a very limited number of Percocet. It is critical that you see Dr. Frances in follow-up within the next 7 to 10 days. If you are not able to schedule an appointment with Dr. Frances please schedule an emergency department follow-up visit at [facility]. They can help manage your condition and make appropriate referrals. It is very important that you never miss your primary care appointments
[2020-09-28 19:29] VITALS: BP 122/72
== END 2020-09-28 19:28 | disposition home or self-care (01) ==
LOC: ED 17:37
DX: M06.9 Rheumatoid arthritis, unspecified (principal); F17.200 Nicotine dependence, unspecified, uncomplicated
CPT/HCPCS: 96372; 99283; 99284; J1170; J7512

== ENCOUNTER 2020-10-15 21:31 | Emergency (ER) | payer MEDICAID ==
--- NOTE | 2020-10-16 00:15 | ED Physician Documentation ---
PD HPI LOWER EXT INJURY - Stated complaint Stated Complaint: LEG PX,CAN'T WALK - Chief complaint Chief Complaint: Ext Problem - History obtained from History obtained from: Patient - History of Present Illness PD HPI LOW EXT INJURY LOCATION: Right, Left, Ankle, Foot Type of injury: No: Fall, Twist Where injury occurred: Home (He states he has a history of rheumatoid arthritis and previously had been on Humira and steroids and other chronic pain medicines through pain clinic in [place]. 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 RA flare at times. Currently on Pred.) Timing - onset: How many weeks ago (current flare for past several weeks without improvement on Prednisone taper from 60 mg.) Timing - duration: Weeks (current flare up) Timing - details: Gradual onset, Still present Worsened by: Moving, Palpating (significant pain with walking due to feet/ankle pains.) Associated symptoms: Swelling (ankles). No: Weakness, Numbness Similar symptoms before: Diagnosis (rheumatoid arthritis.) Recently seen: Clinic (PCP is working on Rheumatology referral. Patient has been here from [place] for couple years but had not had flares initially so did not initiate getting PCP and Rheum until recently.) Review of Systems Constitutional: denies: Fever, Chills Nose: denies: Rhinorrhea / runny nose, Congestion Throat: denies: Sore throat Cardiac: denies: Chest pain / pressure Respiratory: denies: Cough GI: denies: Abdominal Pain, Nausea, Vomiting : denies: Dysuria, Frequency Skin: denies: Rash, Lesions Musculoskeletal: reports: Extremity pain, Joint pain PD PAST MEDICAL HISTORY - Past Medical History Cardiovascular: None Respiratory: None Neuro: None Endocrine/Autoimmune: Other GI: None : None HEENT: None Psych: Anxiety, Panic attacks Musculoskeletal: Rheumatoid arthritis Derm: None - Past Surgical History Past Surgical History: No Ortho: Other - Present Medications Home Medications: Ambulatory Orders Medication Instructions Recorded Confirmed Oxycodone HCl/Acetaminophen 1 - 2 each PO Q6H PRN #10 tablet 02/16/20 02/24/20 [Percocet 5-325 mg Tablet] predniSONE [Deltasone] 20 mg PO [id number] #21 tab 02/16/20 02/24/20 Oxycodone HCl/Acetaminophen 1 - 2 each PO Q6H PRN #14 tablet 05/03/20 [Percocet 5-325 mg Tablet] predniSONE [Deltasone] 20 mg PO [id number] #21 tab 05/03/20 HYDROcod/ACETAM 5/325 [[place] 5/325] 1 - 2 ea PO Q6H PRN #14 tablet 05/20/20 Meloxicam [Mobic] 7.5 mg PO BID PRN #20 tablet 05/20/20 predniSONE [Deltasone] 10 mg PO [id number] #42 tab 05/20/20 Ibuprofen [Motrin] 800 mg PO Q8H PRN #30 tablet 07/02/20 predniSONE [Prednisone] 60 mg PO DAILY #15 tablet 07/02/20 oxyCODONE/ACET 5/325 [Percocet 5 1 each PO ONCE PRN #10 tablet 09/28/20 mg/325 mg] predniSONE [Deltasone] 60 mg PO DAILY #42 tab 09/28/20 Morphine Ir [Ms Ir] 15 mg PO Q8H PRN #25 tablet 10/16/20 dexAMETHasone [Decadron] 4 mg PO DAILY #7 tablet 10/16/20 tiZANidine [Zanaflex] 4 mg PO Q8H PRN #25 tablet 10/16/20 - Allergies Allergies/Adverse Reactions: Allergies Allergy/AdvReac Type Severity Reaction Status Date / Time No Known Drug Allergies Allergy Verified 10/15/20 21:35 - Social History Does the pt smoke?: Yes Smoking Status: Current every day smoker Does the pt drink ETOH?: No Does the pt have substance abuse?: Yes - Immunizations Immunizations are current?: No Immunizations: No immun - POLST Patient has POLST: No POLST Status: Full Code PD ED PE NORMAL - Vitals Vital signs reviewed: Yes - General General: Alert and oriented X 3, Well developed/nourished, Other (appears in considerable pain) - Neck Neck: Supple, no meningeal sign, No adenopathy - Cardiac Cardiac: RRR, No murmur - Respiratory Respiratory: Clear bilaterally - Derm Derm: Normal color, Warm and dry - Extremities Extremities: Other (Considerable tenderness at both ankle joints. There is no redness or warmth. Could be consistent with rheumatoid flare as opposed to gout.) Results - Vitals Vitals: Vital Signs - 24 hr 10/15/20 10/16/20 10/16/20 21:35 02:44 03:53 Temperature 36.5 C 36.6 C 36.7 C Heart Rate 100 90 85 Respiratory 16 16 16 Rate Blood Pressure 117/87 H 123/90 H 123/75 O2 Saturation 98 100 100 Oxygen O2 Source Room air PD MEDICAL DECISION MAKING - ED course Complexity details: considered differential (he actually seems in legitimate pain, and has history of RA. Can give pain meds short term. Did not have ROLAND. ), d/w patient Departure - Departure Disposition: 01 Home, Self Care Clinical Impression: Rheumatoid arthritis flare, Reactive arthritis, Pain in both feet Condition: Stable Record reviewed to determine appropriate education?: Yes Follow-Up: Juan Tierney MD [Primary Care Provider] - Prescriptions: dexAMETHasone [Decadron] 4 mg PO DAILY #7 tablet Morphine Ir [Ms Ir] 15 mg PO Q8H PRN #25 tablet PRN Reason: Pain tiZANidine [Zanaflex] 4 mg PO Q8H PRN #25 tablet PRN Reason: Spasms Comments: We can try changing to Decadron steroid daily for a week and see if that does well for you. Tizanidine muscle relaxant 3 times a day. Tylenol 650 mg 4 times a day. To that add oxycodone 3 times a day as needed for pain. Follow-up with your primary care in the next several days, call for an appointment. Activity as tolerated. Discharge Date/Time: 10/16/20 03:54
[2020-10-16] MEDS ORDERED: HYDROmorphone 2 MG/ML VIAL IM STA ×2 (00:55→01:37)
[2020-10-16] MEDS ORDERED: KETOROLAC 30 MG/ML VIAL IM STA (00:55)
[2020-10-16] MEDS ORDERED: DEXAMETHASONE 10 MG/ML VIAL PO STA (00:55)
[2020-10-16] MEDS ORDERED: CHERRY SYRUP 10 ML UDC PO ONE (00:55)
[2020-10-16] MEDS ORDERED: oxyCODONE/ACET 5/325 Prepack 4 PO STA (02:17)
[2020-10-16] MEDS ORDERED: oxyCODONE 5 MG TABLET PO STA (02:59)
[2020-10-16] MEDS ORDERED: methocarbamoL 500 MG TABLET PO STA (02:59)
[2020-10-16 03:54] VITALS: BP 123/75
--- OUTSIDE RECORDS SUMMARY | 2020-10-16 04:56 | EXTERNAL MEDICAL SUMMARY RPT | Continuity of Care Document ---
:1985 Demographics Phone Unavailable Preferred Language Unknown Marital Status Unknown Anglican Affiliation Unknown Race Unknown Ethnic Group Unknown Author Organization [place] Address [address] [phone] Phone Care Team Providers Name Role Phone MD Unavailable Unavailable Demmler Unavailable Unavailable Problems date description facility 2015-09-30 12:45 OTHER CHEST PAIN Formerly [facility] 2015-09-30 12:45 CONTUSION OF RIGHT FRONT WALL [facility] OF THORAX, INITIAL ENCOUNTER 2015-09-30 12:45 STRIKING AGAINST OR STRUCK BY [facility] OTHER OBJECTS, INIT ENCNTR 2015-09-30 12:45 OTHER EXTERNAL CAUSE STATUS [facility] 2015-09-30 12:45 PERSONAL HISTORY OF NICOTINE [facility] DEPENDENCE 2018-02-02 05:13 GENO'S DISEASE, UNSPECIFIED [facility] SITE 2018-02-02 05:13 CHEST PAIN, UNSPECIFIED [facility] 2018-02-26 10:30 GENO'S DISEASE, [facility] SITE 2018-02-26 10:30 ARTHROPATHY, [facility] 2018-02-26 10:30 PAIN IN UNSPECIFIED SHOULDER [facility] 2018-10-16 03:18 GENO'S DISEASE, RIGHT ANKLE [facility] AND FOOT 2018-10-16 03:18 UNSPECIFIED OSTEOARTHRITIS, [facility] UNSPECIFIED SITE 2018-10-16 03:18 PAIN IN RIGHT ANKLE AND JOINTS [facility] OF RIGHT FOOT 2019-08-02 13:04 UNSPECIFIED IRIDOCYCLITIS [facility] 2019-08-02 13:04 OCULAR PAIN, RIGHT EYE [facility] 2019-12-13 22:53 UNSPECIFIED IRIDOCYCLITIS [facility] 2019-12-13 22:53 OTHER SPECIFIED SOFT TISSUE [facility] DISORDERS 2020-01-12 02:27 ANXIETY DISORDER, UNSPECIFIED [facility] 2020-01-12 02:27 GENO'S DISEASE, MULTIPLE [facility] SITES 2020-01-12 02:27 CERVICALGIA [facility] 2020-01-12 02:27 UNDERDOSING OF ANTIRHEUMATICS, [facility] NEC, INIT 2020-01-12 02:27 PATIENT'S INTENTL UNDRDOSE OF [facility] MEDS REGIMEN FOR OTH REASON 2020-02-16 21:00 GENO'S DISEASE, RIGHT KNEE [facility] 2020-02-16 21:00 EFFUSION, RIGHT KNEE [facility] 2020-02-16 21:00 PAIN IN UNSPECIFIED KNEE [facility] 2020-02-24 04:34 ANEMIA, UNSPECIFIED [facility] 2020-02-24 04:34 RHEUMATOID ARTHRITIS, [facility] UNSPEC[facility]IED 2020-02-24 04:34 MONOARTHRITIS, NOT ELSEWHERE [facility] CLASSIFIED, RIGHT KNEE 2020-02-24 04:34 FEVER, UNSPECIFIED [facility] 2020-02-24 04:34 OTHER SPECIFIED ABNORMAL [facility] IMMUNOLOGICAL FINDINGS IN SERUM 2020-02-24 04:34 ELEVATED URINE LEVELS OF [facility] DRUG/MEDS/BIOL SUBST 2020-02-24 04:34 CONTACT W AND EXPOSURE TO OTH [facility] VIRAL COMMUNICABLE DISEASES 2020-02-24 04:34 PROC/TRTMT NOT CRD OUT BEC PT [facility] DECISION FOR OTH REASONS 2020-05-03 18:12 TINEA UNGUIUM [facility] 2020-05-03 18:12 GENO'S DISEASE, UNSPECIFIED [facility] SITE 2020-05-03 18:12 [facility] UNSPEC[facility] 2020-05-03 18:12 EFFUSION, RIGHT KNEE [facility] 2020-05-03 18:12 LOW BACK PAIN [facility] 2020-05-03 18:12 PAIN IN RIGHT LEG [facility] 2020-05-20 16:53 OTHER SPECIFIED DISORDERS OF [facility] WHITE BLOOD CELLS 2020-05-20 16:53 OTHER CHRONIC PAIN [facility] 2020-05-20 16:53 RHEUMATOID ARTHRITIS, [facility] UNSPECIFIED 2020-05-20 16:53 PAIN IN RIGHT KNEE [facility] 2020-05-20 16:53 FINDING OF OTH SUBSTANCES, NOT [facility] NORMALLY FOUND IN BLOOD 2020-06-17 11:24 NICOTINE DEPENDENCE, [facility] UNSPECIFIED, UNCOMPLICATED 2020-06-17 11:24 OTHER CHRONIC PAIN [facility] 2020-06-17 11:24 RHEUMATOID ARTHRITIS, [facility] UNSPECIFIED 2020-06-17 11:24 MYALGIA, UNSPECIFIED SITE [facility] 2020-07-02 11:04 PAIN IN RIGHT KNEE [facility] 2020-07-02 11:04 CERVICALGIA [facility] 2020-07-02 11:04 DORSALGIA, UNSPECIFIED [facility] 2020-07-02 11:04 PAIN IN RIGHT LEG [facility] 2020-07-02 11:04 PAIN IN LEFT LEG [facility] 2020-07-02 11:16 NICOTINE DEPENDENCE, [facility] UNSPECIFIED, UNCOMPLICATED 2020-07-02 11:16 RHEUMATOID ARTHRITIS, [facility] d[facility] Center UNSPECIFIED 2020-07-02 11:16 PAIN IN RIGHT KNEE [facility] 2020-07-02 11:16 PAIN IN LEFT KNEE [facility] 2020-07-02 11:16 CERVICALGIA [facility] 2020-07-02 11:16 DORSALGIA, UNSPECIFIED [facility] 2020-07-24 00:00 ESSENTIAL (PRIMARY) [facility] HYPERTENSION 2020-07-24 00:00 HALLUX VARUS (ACQUIRED), [facility] UNSPECIFIED FOOT 2020-07-24 00:00 MUSCLE SPASM OF BACK [facility] 2020-07-24 00:00 OTHER SPECIFIED ABNORMAL [facility] FINDINGS OF BLOOD CHEMISTRY 2020-07-24 00:00:00 TSH WITH REFLEX TO FT4 [facility] [place] [facility] 2020-07-24 00:00:00 STONE SCREEN WITH REFLEX [facility] & [facility] PANEL [place] [facility] 2020-07-24 00:00:00 Geno's disease [facility] [place] [facility] 2020-07-24 00:00:00 Unspecified essential [facility] hypertension [place] [facility] 2020-07-24 00:00:00 Pain in joint involving [facility] shoulder region [place] [facility] 2020-07-24 00:00:00 Lumbago [facility] ebonie [facility] [place] [facility] 2020-07-24 00:00:00 Other symptoms referable to [facility] back [place] [facility] 2020-07-24 00:00:00 Hepatomegaly [facility] [place] [facility] 2020-07-24 00:00:00 XR SHOULDER 2-3 VIEW [facility] Pr imary Care [place] [facility] 2020-07-24 00:00:00 COMPREHENSIVE METABOLIC PANEL [facility] [place] [facility] 2020-07-24 00:00:00 Uric [facility] [place] [facility] 2020-07-24 00:00:00 CBC W/O Diff/[facility]t [facility] [place] [facility] 2020-07-24 00:00:00 Sed Rate [facility] [place] [facility] 2020-07-24 00:00:00 CRP [facility] [place] [facility] 2020-07-24 00:00:00 RHEUMATOID FACTOR [facility] [place] [facility] 2020-07-24 00:00:00 Essential (primary) [facility] Muna candida [facility] hypertension [place] [facility] 2020-07-24 00:00:00 Geno's disease, unspecified [facility] site [place] [facility] 2020-07-24 00:00:00 [facility] 2020-07-24 00:00:00 Low back pain [facility] 2020-07-24 00:00:00 Muscle sp[facility] 2020-07-24 00:00:00 Hepatomegaly, not elsewhere [facility] classified [facility] 2020-07-24 00:00:00 Spasm [facility] muscles [facility] P [facility] 2020-07-24 00:00:00 Health-related behavior [facility] 2020-07-24 00:00:00 Tobacco use and exposure [facility] 2020-07-24 00:00:00 Exercise [facility] 2020-07-24 00:00:00 Shoulder [facility] 2020-07-24 00:00:00 Details of drug misuse behavior [facility] 2020-07-24 00:00:00 Little interest or pleasure in [facility] doing things? [facility] 2020-07-24 00:00:00 Feeling down, depressed, or [facility] hopeless? [facility] 2020-07-24 00:00:00 Current every day smoker [facility] 2020-07-24 00:00:00 Essential hypertension [facility] 2020-07-24 00:00:00 Reactive arthritis triad [facility] 2020-07-24 00:00:00 [facility] 2020-07-24 00:00:00 Tobacco smoking status NHIS [facility] 2020-07-24 00:00:00 Total score? [facility] 2020-07-24 00:00:00 Large liver [facility] 2020-07-24 16:25 ESSENTIAL (PRIMARY) [facility] HYPERTENSION 2020-07-24 16:25 HALLUX VARUS (ACQUIRED), [facility] UNSPECIFIED FOOT 2020-07-24 16:25 MUSCLE SPASM OF BACK [facility] 2020-07-24 16:25 OTHER SPECIFIED ABNORMAL [facility] FINDINGS OF BLOOD CHEMISTRY 2020-09-28 17:37 NICOTINE DEPENDENCE, [facility] UNSPECIFIED, UNCOMPLICATED 2020-09-28 17:37 RHEUMATOID ARTHRITIS, [facility] UNSPECIFIED 2020-10-07 00:00:00 Tobacco use and exposure [facility] 2020-10-07 00:00:00 Exercise [facility] 2020-10-07 00:00:00 Details of drug misuse behavior [facility] Primary Care [facility] 2020-10-07 00:00:00 Current every day smoker [facility] 2020-10-07 00:00:00 Tobacco smoking status NHIS [facility] 2020-10-07 00:00:00 Total score? [facility] 2020-10-09 00:00:00 Depressive disorder, not [facility] elsewhere classified [facility] 2020-10-09 00:00:00 Other general symptoms [facility] 2020-10-09 00:00:00 Major depressive disorder, [facility] single episode, unspecified [facility] 2020-10-09 00:00:00 Chronic pain syndrome [facility] P rimary Care [facility] 2020-10-09 00:00:00 Other amnesia [facility] 2020-10-09 00:00:00 Tobacco use and exposure [facility] 2020-10-09 00:00[facility] 2020-10-09 00:00:00 Depressive disorder [facility] [place] [facility] 2020-10-09 00:00:00 Details of drug misuse behavior [facility] [place] [facility] 2020-10-09 00:00:00 Memory impairment [facility] [place] [facility] 2020-10-09 00:00:00 [facility] [place] [facility] 2020-10-09 00:00:00 Tobacco smoking status NHIS [facility] [place] [facility] 2020-10-09 00:00:00 Total score? [facility] [place] [facility] Allergies date description facility MORPHINE [facility] NO KNOWN ENVIRONMENTAL ALLERGIES [facility] TETANUS TOXOIDS [facility] SULFA (SULFONAMIDE ANTIBIOTICS) [facility] NO KNOWN ALLERGIES [facility] ADHESIVE TAPE-SILICONES [facility] No Known Drug Allergies [facility] PENICILLINS [facility] NO KNOWN ALLERGIES [facility] No Known Drug Allergies [facility] Medications date description facility 2020-07-24 00:00:00 null [facility] [place] [facility] 2020-07-24 00:00:00 null [facility] [place] [facility] 2020-07-24 00:00:00 null [facility] [place] [facility] 2020-07-24 00:00:00 null [facility] [place] [facility] 2020-07-24 00:00:00 PREDNISONE [facility] [place] [facility] 2020-07-24 00:00:[address] [facility] [place] [facility] 2020-07-24 00:00:00 BACLOFEN [facility] [place] [facility] 2020-07-24 00:00:00 [facility]EDNISONE [facility] [place] [facility] 2020-10-07 00:00:00 null [facility] [place] [facility] 2020-10-07 00:00:00 null [facility] [place] [facility] 2020-10-07 00:00:00 METHOCARBAMOL [facility] [place] [facility] 2020-10-07 00:00:00 [facility]BAMOL [facility] [place] [facility] Procedures date description facility 2020-07-24 00:00:00 TSH WITH REFLEX TO FT4 [facility] [place] [facility] date description facility 2020-07-24 00:00:00 STONE SCREEN WITH REFLEX [facility] PANEL [place] [facility] date description facility 2020-07-24 00:00:00 COMPREHENSIVE METABOLIC PANEL [facility] [place] [facility] date description facility 2020-07-24 00:00:00 Uric Acid [facility] [place] [facility] date description facility 2020-07-24 00:00:00 CBC W/O Diff/Plt [facility] [place] [facility] date description facility 2020-07-24 00:00:00 Sed Rate [facility] [place] [facility] date description facility 2020-07-24 00:00:00 CRP [facility] [place] [facility] date description facility 2020-07-24 00:00:00 RHEUMATOID FACTOR [facility] [place] [facility] date description facility 2020-07-24 00:00:00 [facility] [place] [facility] date description facility 2020-10-07 00:00:00 IM or SQ Injection [facility] [place] [facility] date description facility 2020-10-07 00:00:00 Ketorolac Tromethamine 60 mg/2 [facility] [place] [facility] date description facility 2020-10-07 00:00:00 [facility] [place] [facility] Results Social History date description facility 2020-07-24 00:00:00 Current every day smoker [facility] [place] [facility] date description facility 2020-10-07 00:00:00 Current every day smoker [facility] [place] [facility] date description facility 2020-10-09 00:00:00 Current [facility] date description facility 2020-07-24 00:00:00 Current every day sm[facility] date description facility 2020-10-07 00:00:00 Current every day smoker [facility] date description facility 2020-10-09 00:00:00 Current every day sm[facility] date description facility [id number]
== END 2020-10-16 03:54 | disposition home or self-care (01) ==
LOC: ED 21:31
DX: M06.9 Rheumatoid arthritis, unspecified (principal); M02.372 Reiter's disease, left ankle and foot; M02.371 Reiter's disease, right ankle and foot; F17.200 Nicotine dependence, unspecified, uncomplicated; Z79.52 Long term (current) use of systemic steroids
CPT/HCPCS: 96372; 99283; 99284; A9270; J1170

== ENCOUNTER 2020-10-22 08:00 | Outpatient (CLI) | payer MEDICAID ==
[2020-10-22 19:16] LABS: BASOPHILS # (AUTO) 0.1 10^3/uL (0.0-0.1); BASOPHILS % (AUTO) 0.6 %; EOSINOPHILS # (AUTO) 0.1 10^3/uL (0.0-0.7); EOSINOPHILS % (AUTO) 0.4 %; HGB - HEMOGLOBIN 11.8 g/dL (14.0-18.0); LYMPHOCYTES # (AUTO) 4.5 10^3/uL (1.5-3.5); LYMPHOCYTES % (AUTO) 27.9 %; MEAN CORPUSCULAR HEMOGLOBIN 27.9 pg (27.0-31.0); MEAN CORPUSCULAR HGB CONC 30.7 g/dL (32.0-36.0); MEAN CORPUSCULAR VOLUME 90.8 fL (80.0-94.0); MEAN PLATELET VOLUME 8.1 fL (7.4-11.4); MONOCYTES # (AUTO) 1.3 10^3/uL (0.0-1.0); MONOCYTES % (AUTO) 7.9 %; NEUTROPHILS # (AUTO) 10.1 10^3/uL (1.5-6.6); NEUTROPHILS % (AUTO) 62.7 %; PLT - PLATELET COUNT 563 10^3/uL (130-450); RED BLOOD COUNT 4.23 10^6/uL (4.70-6.10); RED CELL DISTRIBUTION WIDTH 14.8 % (12.0-15.0); WHITE BLOOD COUNT 16.1 x10^3/uL (4.8-10.8)
[2020-10-22 19:33] LABS: ALBUMIN 3.8 g/dL (3.2-5.5); ALBUMIN/GLOBULIN RATIO 0.8 (1.0-2.2); BILIRUBIN,TOTAL 0.5 mg/dL (0.2-1.0); CALCIUM 9.3 mg/dL (8.5-10.3); CREATININE 0.7 mg/dL (0.6-1.2); CRP - C-REACTIVE PROTEIN 3.1 mg/dL (0-1.0); TOTAL PROTEIN 8.7 g/dL (6.7-8.2); URIC ACID 4.9 mg/dL (2.6-7.2)
[2020-10-22 20:58] LABS: PLATELET ESTIMATE, MANUAL INCREASED (>450,000) (NORMAL); PLATELET MORPHOLOGY NORMAL APPEARANCE (NORMAL); RBC MORPHOLOGY (MULTIPLE) NORMAL APPEARANCE (NORMAL)
[2020-10-22 20:59] LABS: DIFFERENTIAL COMMENT MANUAL=AUTO DIFF
== END 2020-10-22 08:01 | disposition home or self-care (01) ==
LOC: LAB.WCP 08:00
PROVIDERS: ATTEND Family Medicine
DX: M02.30 Reiter's disease, unspecified site (principal); G89.4 Chronic pain syndrome
CPT/HCPCS: 36415; 80053; 84550; 85025; 85651; 86140

== ENCOUNTER 2021-04-08 20:47 | Emergency (ER) | payer MEDICAID ==
--- NOTE | 2021-04-09 00:17 | ED Physician Documentation ---
PD HPI BACK PAIN - Stated complaint Stated Complaint: BACK PX - Chief complaint Chief Complaint: Back Pain - History obtained from History obtained from: Patient - History of Present Illness Timing - onset: How many days ago (2) Timing - duration: Days Timing - details: Abrupt onset, Waxing and waning Pain level max: 10 Pain level now: 10 Location: Mid, Lower, Other (across mid/lower back) Associated symptoms: No: Fever, Weakness, Numbness, Incontinent of urine, Unable to urinate, Hematuria, Incontinent of stool Improves with: Rest Worsened by: Movement Contributing factors: Lifting Similar symptoms before: Has not had sx before Recently seen: Not recently seen - Additional information Additional information: patient c/o sudden onset mid/lower back pain. Onset was 2 days ago when he was lifting a shopping cart up to get it over a curb, felt sudden popping sensation in the back and experienced moderate pain which has gradually progressed in severity. it is distinctly worse with movement. he has had nausea but no vomiting. denies numbness, weakness. Review of Systems Constitutional: denies: Fever GI: reports: Nausea. denies: Abdominal Pain, Vomiting : denies: Dysuria, Frequency, Unable to Void, Incontinent Musculoskeletal: reports: Back pain. denies: Neck pain Neurologic: denies: Focal weakness, Numbness PD PAST MEDICAL HISTORY - Past Medical History Cardiovascular: None Respiratory: None Neuro: None Endocrine/Autoimmune: Other GI: None : None HEENT: None Psych: Anxiety, Panic attacks Musculoskeletal: Rheumatoid arthritis Derm: None - Past Surgical History Past Surgical History: No Ortho: Other - Present Medications Home Medications: Ambulatory Orders Medication Instructions Recorded Confirmed Cyclobenzaprine [Flexeril] 10 mg PO TID PRN #20 tablet 04/09/21 HYDROcod/ACETAM 5/325 [[place] 5/325] 1 - 2 tablet PO Q6H PRN #14 tablet 04/09/21 - Allergies Allergies/Adverse Reactions: Allergies Allergy/AdvReac Type Severity Reaction Status Date / Time No Known Drug Allergies Allergy Verified 04/08/21 21:00 - Social History Does the pt smoke?: Yes Smoking Status: Current every day smoker Does the pt drink ETOH?: No Does the pt have substance abuse?: Yes - Immunizations Immunizations are current?: No Immunizations: No immun - POLST Patient has POLST: No POLST Status: Full Code PD ED PE NORMAL - Vitals Vital signs reviewed: Yes - General General: Alert and oriented X 3, Well developed/nourished, Other (appears to be in moderate/severe painful distress, crying at times) - Abdomen Abdomen: Soft, Non tender - Back Back: No CVA TTP, No spinal TTP - Derm Derm: Normal color, Warm and dry - Extremities Extremities: No edema - Neuro Neuro: No motor deficit, No sensory deficit Results - Vitals Vitals: Oxygen O2 Source Room air - Rads (name of study) lumbar xrays Radiology: Prelim report reviewed, See rad report PD MEDICAL DECISION MAKING - ED course Complexity details: reviewed old records, reviewed results, re-evaluated patient, considered differential, d/w patient ED course: lumbar xrays show mild to moderate acute appearing superior endplate L1 compression fracture, as well as age indeterminate mild L5 compression fracture. He has no neurologic complaints nor findings. on reevaluation after PO valium an IM dilaudid, he is asleep, awakens to voice and in NAD at rest. we discussed the results of the xray and the need for follow up, possibly for further study such as CT or MRI; without neurologic c/o nor findings, further testing can be undertaken in outpatient setting. I encouraged him to return if worse or if new/signs symptoms develop such as weakness, numbness, urinary or fecal incontinence. I am prescribing a short course of short-acting opioid pain medication for this patient. I have reviewed the patients DESILVERIZER and no concerning findings were noted. While he has frequent ED visits, the findings on plain-film xrays tonight are suggestive of acute L1 compression fracture which would be a painful injury for which non-narcotic medications would be likely to be ineffective. I have d iscussed that the opioids are for short term therapy only, and will not be refilled from the ED. Departure - Departure Disposition: 01 Home, Self Care Clinical Impression: Lumbar compression fracture Qualifiers: Encounter type: initial encounter Lumbar vertebra fracture level: L1 Qualified Code(s): S32.010A - Wedge compression fracture of first lumbar vertebra, initial encounter for closed fracture Condition: Good Instructions: ED Fx Comp Vertebral Follow-Up: Juan Tierney MD [Primary Care Provider] - Within 3 Days Prescriptions: Cyclobenzaprine [Flexeril] 10 mg PO TID PRN #20 tablet PRN Reason: Spasms HYDROcod/ACETAM 5/325 [[place] 5/325] 1 - 2 tablet PO Q6H PRN #14 tablet PRN Reason: Pain Comments: I am prescribing a short course of narcotic pain medication for you. These are potentially dangerous and addictive medications that should be used carefully. These medications may constipate you. Take an [id number]-cuugzzz stool softener (docusate) twice daily with plenty of water while taking these medications. If you go 24 hours without a bowel movement, take [id number] miralax, per package instructions. Do not drink or drive while taking these medications. If you received narcotic or sedating medications while in the emergency department, do not drive for 24 hours. Store this medication in a safe, secure place and out of reach of children. It is a violation of federal law to give or sell this medication to another person or to use in a manner other than prescribed. The ED will not refill narcotic prescriptions, including prescriptions lost or stolen. To dispose of unwanted medications: 1. [facility] at [address] [place] [address] in [place] has a medication drop box. They accept prescription medications (in pill form) Wednesday through Wednesday 9:00 a.m. to 5:00 p.m. 2. The [facility] [employer] accepts prescription medications (in pill form only) for disposal year round. Call for more information. 3. Contact the [facility] for the next [facility] sponsored prescription dr fouzia tolbert event. , [phone], or [phone]; Discharge Date/Time: 04/09/21 03:35
[2021-04-09] MEDS ORDERED: diazePAM 5 MG TABLET PO STA (00:30)
[2021-04-09] MEDS ORDERED: HYDROmorphone 1 MG/ML CARPUJECT IM STA (00:30)
[2021-04-09 03:13] VITALS: BP 145/95
--- NOTE | 2021-04-09 08:14 | XRAY Report ---
PROCEDURE: Lumbar Spine 2 View INDICATIONS: severe low back pain TECHNIQUE: 3 views of the lumbar spine were acquired. COMPARISON: None. FINDINGS: Bones: 5 [id number] vertebrae are present. There is normal bony alignment. There is what appea rs to be a moderate wedge compression fracture involving L1 with approximately 33% height reduction o f the vertebral body when compared to the level immediately above. Vertebral body compression fractur es. No suspicious bony lesions. Soft tissues: Overlying bowel gas pattern is normal. No suspicious soft tissue calcifications. IMPRESSION: Acute or subacute compression fracture L1 with 33% height reduction estimated at the ant erior third of the vertebral body. No definite retropulsion of bone fragments into the spinal canal i s seen. Depending on the clinical status follow-up by CT scanning of the lumbosacral spine may be war ranted, versus MR scanning. Reviewed by: Gume Ahumada MD on 04/09/2021 8:13 AM PDT Approved by: Gume Ahumada MD on 04/09/2021 8:13 AM PDT Station ID: [id number]
== END 2021-04-09 03:35 | disposition home or self-care (01) ==
LOC: ED 20:47
DX: S32.010A Wedge compression fracture of first lumbar vertebra, initial encounter for closed fracture (principal); X50.0XXA Overexertion from strenuous movement or load, initial encounter; Y93.89 Activity, other specified; F17.200 Nicotine dependence, unspecified, uncomplicated
CPT/HCPCS: 72100; 99283; 99284; A9270; J1170

== ENCOUNTER 2021-06-29 18:32 | Emergency (ER) | payer MEDICAID ==
[2021-06-29] MEDS ORDERED: HYDROmorphone 1 MG/ML CARPUJECT IVP STA (18:47)
[2021-06-29] MEDS ORDERED: KETOROLAC 30 MG/ML VIAL IVP STA ×2 (18:48→20:09)
--- NOTE | 2021-06-29 18:48 | ED Physician Documentation ---
PD HPI BACK PAIN - Stated complaint Stated Complaint: BACK PX - Chief complaint Chief Complaint: Back Pain - History obtained from History obtained from: Patient - Additional information Additional information: 36-year-old gentleman with chronic pain due to rheumatoid arthritis developed midthoracic back pain yesterday radiating to the chest that is worse with movement and deep breathing. It is similar pains that he had in the past but the chest pain component is new. He is on dexamethasone right now and recently saw a electrical logging operator with plans to start Humira in the near future. There have been some concerns about drug-seeking behavior on prior charts, but is honest about recent prescriptions when compared to the EMPLOYEE RELATIONS DIRECTOR. Has been getting sparing prescriptions of hydrocodone from his physician. Review of Systems Ten Systems: 10 systems reviewed and negative Constitutional: denies: Fever, Chills Nose: reports: Reviewed and negative Throat: reports: Reviewed and negative Cardiac: reports: Reviewed and negative PD PAST MEDICAL HISTORY - Past Medical History Cardiovascular: None Respiratory: None Neuro: None Endocrine/Autoimmune: Other GI: None : None HEENT: None Psych: Anxiety, Panic attacks Musculoskeletal: Rheumatoid arthritis Derm: None - Past Surgical History Past Surgical History: No Ortho: Other - Present Medications Home Medications: Ambulatory Orders Medication Instructions Recorded Confirmed Cyclobenzaprine [Flexeril] 10 mg PO TID PRN #20 tablet 04/09/21 06/29/21 Amoxicillin 2 tab PO TID #60 cap 06/29/21 Azithromycin [Zithromax] 1 tab PO DAILY #4 tab 06/29/21 Oxycodone HCl/Acetaminophen 1 - 2 each PO Q6H PRN #14 tablet 06/29/21 [Percocet 5-325 mg Tablet] dexAMETHasone [Decadron] 4 mg PO DAILY 06/29/21 06/29/21 - Allergies Allergies/Adverse Reactions: Allergies Allergy/AdvReac Type Severity Reaction Status Date / Time No Known Drug Allergies Allergy Verified 06/29/21 18:37 - Social History Does the pt smoke?: Yes Smoking Status: Current every day smoker Does the pt drink ETOH?: No Does the pt have substance abuse?: Yes - Immunizations Immunizations are current?: No Immunizations: No immun - POLST Patient has POLST: No POLST Status: Full Code PD ED PE NORMAL - Vitals Vital signs reviewed: Yes - General General: Alert and oriented X 3, Other - Neck Neck: Supple, no meningeal sign, No bony TTP - Cardiac Cardiac: RRR, No murmur - Respiratory Respiratory: No respiratory distress, Clear bilaterally - Abdomen Abdomen: Non tender - Back Back: Other (Diffuse likely muscular tenderness of the parathoracic musculature but no lumbar tenderness.) - Extremities Extremities: Other (The patient has equal and normal Achilles and patellar reflexes bilaterally. Normal sensation in all areas of the legs. Patient denies saddle anesthesia. Normal strength in flexion-extension at the ankles, knees, and flexion of the hips.) - Neuro Neuro: Alert and oriented X 3, Normal speech Results - Vitals Vitals: Vital Signs - 24 hr 06/29/21 06/29/21 18:39 20:08 Temperature 36.2 C L Heart Rate 115 H 99 Respiratory 24 19 Rate Blood Pressure 132/90 H 130/88 H O2 Saturation 96 97 Oxygen O2 Source Room air - EKG (time done) 1846 Rate: Rate (enter#) (112) Rhythm: Sinus tachycardia [place]: Normal Intervals: Normal GA QRS: Normal Ischemia: Normal ST segments - Labs Labs: Laboratory Tests 06/29/21 06/29/21 18:50 18:50 Sodium 142 Potassium 4.0 Chloride 104 Carbon Dioxide 26 Anion Gap 12.0 BUN 14 Creatinine 0.8 Estimated GFR (MDRD) 109 Glucose 128 H Calcium 9.2 Troponin I High Sens 5.8 PD MEDICAL DECISION MAKING - ED course ED course: 36-year-old gentleman with chronic pain presents with chest and abdominal pain. CT angiography was done to rule out dissection and this was negative for that, but was found to have bibasilar pneumonia. He has not been immunized against Covid and we will check him for same. I encouraged him to get immunized against Covid. There have been concerns about drug-seeking behavior in the past but he was forthcoming about recent prescriptions and does have a new objectively painful diagnosis. I am prescribing a short course of short-acting opioid pain medication for this patient. I have reviewed the patients EMPLOYEE RELATIONS DIRECTOR and no concerning findings were noted. I have discussed that the opioids are for short term therapy only, and will not be refilled from the ED. Departure - Departure Disposition: 01 Home, Self Care Clinical Impression: Back pain, Chronic pain, Pneumonia Condition: Good Record reviewed to determine appropriate education?: Yes Instructions: Pneumonia Dc Prescriptions: Amoxicillin 2 tab PO TID #60 cap Oxycodone HCl/Acetaminophen [Percocet 5-325 mg Tablet] 1 - 2 each PO Q6H PRN #14 tablet PRN Reason: pain Azithromycin [Zithromax] 1 tab PO DAILY #4 tab Comments: Prescription sent electronically to [facility] in [place]. You have a Covid test pending. You need to self quarantine until the result is done and negative. Do not leave your house. Do not get near anybody. The results should be done in 48 to 72 hours. We will call with a positive result, the fastest way to get a negative result for confirmation though is to go to the hospital website at [email or web address], click on the my [employer] tab and sign up for the patient portal. If any friends or family get sick and would like to have a Covid test done, but do not have signs or symptoms that would necessitate being hospitalized, we encourage testing through our coronavirus swabbing station, call [phone] to schedule an appointment. Call your doctor to arrange a follow-up appointment, make the next available appointment. In the interim, return anytime if worse or if new symptoms develop. I am prescribing a short course of narcotic pain medication for you. These are potentially dangerous and addictive medications that should be used carefully. These medications may constipate you. Take an sbup-ita-wbrhzxo stool softener (docusate) twice daily with plenty of water while taking these medications. If you go 24 hours without a bowel movement, take eyfx-bvc-szezsdm miralax, per package instructions. Do not drink or drive while taking these medications. If you received narcotic or sedating medications while in the emergency department, do not drive for 24 hours. Store this medication in a safe, secure place and out of reach of children. It is a violation of federal law to give or sell this medication to another person or to use in a manner other than prescribed. The ED will not refill narcotic prescriptions, including prescriptions lost or stolen. To dispose of unwanted medications: 1. The [facility] at [address] in [place] has a medication drop box. They accept prescription medications (in pill form) Wednesday through Wednesday 9:00 a.m. to 5:00 p.m. 2. The [facility] [employer] accepts prescription medications (in pill form only) for disposal year round. Call for more information. 3. Contact the [facility] for the next [facility] sponsored prescription drug collection event. , [phone], or [phone]; Note that many narcotic pain relievers also contain Tylenol/acetaminophen. Please ensure that your total dose of acetaminophen from all sources does not exceed 3 g (3000 mg) per day.
[2021-06-29] MEDS ORDERED: IOVERSOL 320 100 ML VIAL IVP ONE ×3 (18:56→19:50)
[2021-06-29 19:16] LABS: CALCIUM 9.2 mg/dL (8.5-10.3); CREATININE 0.8 mg/dL (0.6-1.2)
[2021-06-29] MEDS ORDERED: ACETAMINOPHEN 325 MG TABLET PO STA (20:09)
[2021-06-29] MEDS ORDERED: oxyCODONE 5 MG TABLET PO STA (20:09)
--- NOTE | 2021-06-29 20:15 | CT Report ---
PROCEDURE: ANGIO CHEST W/WO INDICATIONS: chest/back pain, aorta protocol CONTRAST: IV CONTRAST: Optiray 320 ml: 100 PO CONTRAST: *NO PO CONTRAST TECHNIQUE: Precontrast 5 mm thick sections acquired from the lung apices through the diaphragms. After the admin istration of intravenous contrast, 3 mm thick sections again acquired from the lung apices to the payton phragms. Coronal and sagittal reformations were performed. 1 mm axial reconstructions performed thro ugh the lungs. For radiation dose reduction, the following was used: automated exposure control. COMPARISON: FINDINGS: Image quality: Excellent. AORTA: Please note the abdominal aorta was not completely included on the current study. The thoracic aorta is normal in caliber. Noncontrast images demonstrate no evidence of intramural hematoma. Postc ontrast images demonstrate no intimal flaps to suggest dissection. No periaortic hematomas or contour irregularities. There is a three-vessel aortic arch which demonstrates conventional branching. The v isualized great vessels are normal in caliber and appear patent. CHEST: Lungs and pleura: There are bilateral confluent areas of consolidation in the inferior lower lobes an d right middle lobe with associated air bronchograms. No pleural effusions or pneumothorax. Central and peripheral airways are patent and normal in caliber. Mediastinum: Heart size is normal. No pericardial effusion. Central pulmonary arteries are normal in size without filling defects to suggest pulmonary embolism to the level of the proximal segmental pulmonary arteries. No mediastinal or hilar adenopathy by size criteria. Esophagus is normal in ghada iber. No hiatal hernias. Bones and chest wall: No axillary adenopathy by size criteria. Thyroid gland demonstrates no discre te nodules. No suspicious bony lesions. There is a superior endplate Schmorl's node involving the T 9 vertebral body. Abdomen: Visualized upper abdomen appears unremarkable. IMPRESSION: 1. No evidence of dissection within the thoracic aorta. Please note the abdominal aorta is not fully included on the current study. 2. No definite central pulmonary embolism to the level of the proximal segmental pulmonary arteries. 3. Bibasilar consolidation involving the lower lobes and inferior right middle lobe compatible with p neumonia. 4. Small superior endplate Schmorl's node within the T9 vertebral body. Reviewed by: Varghese Gale MD on 06/29/2021 8:14 PM PDT Approved by: Varghese Gale MD on 06/29/2021 8:14 PM PDT Station ID: [id number]
[2021-06-29] MEDS ORDERED: oxyCODONE/ACET 5/325 Prepack 4 PO STA (20:24)
[2021-06-29] MEDS ORDERED: AZITHROMYCIN 250 MG TABLET PO STA (20:24)
[2021-06-29] MEDS ORDERED: AMOXICILLIN 250 MG CAPSULE PO STA (20:24)
[2021-06-29 20:41] VITALS: BP 132/79
== END 2021-06-29 20:40 | disposition home or self-care (01) ==
LOC: ED 18:32
DX: M54.6 Pain in thoracic spine (principal); G89.29 Other chronic pain; J18.9 Pneumonia, unspecified organism; M06.9 Rheumatoid arthritis, unspecified; F17.200 Nicotine dependence, unspecified, uncomplicated; Z20.822 Contact with and (suspected) exposure to COVID-19
CPT/HCPCS: 36415; 71275; 80048; 84484; 87635; 93005; 96374; 96375; 96376; 99284; A9270; J1170; Q9967

== ENCOUNTER 2022-04-26 01:12 | Emergency (ER) | payer MEDICAID ==
--- NOTE | 2022-04-26 01:26 | ED Physician Documentation ---
History of Present Illness - Stated complaint Stated Complaint: Lam leg pain - Chief complaint Chief Complaint: General - History obtained from History obtained from: Patient - History of Present Illness Timing: How many days ago (2) Pain level now: 8 Improved by: rest Worsened by: ambulating, weight-bearing, palpation - Additonal information Additional information: c/o bilateral lower extremity pain x 2 days. patient says he has had diagnoses from different rheumatologists that included rheumatoid arthritis, reactive arthritis, ankylosing spondylitis. He says he has not taken his humira nor his methotrexate since January, although his explanation as to why is unclear. He says he missed a dose of humira in January, and he did not think the methotrexate works unless he also takes the methotrexate. When I ask why he has not had doses of humira since missing a dose three months ago, he says the prescribing physician would not give a new prescription unless he was seen in the office, that he missed an appointment and was told he could not be seen because of this, and that he has not had reliable phone nor transportation over the past three months. Patient also notes BLE rash x 4-5 days, says he has not had this rash before Review of Systems Constitutional: denies: Fever, Chills, Sweats Cardiac: reports: Reviewed and negative Respiratory: reports: Reviewed and negative GI: reports: Reviewed and negative : denies: Hematuria Skin: reports: Rash Musculoskeletal: reports: Extremity pain, Joint pain, Extremity swelling, Joint swelling Neurologic: denies: Focal weakness, Numbness PD PAST MEDICAL HISTORY - Past Medical History Cardiovascular: None Respiratory: None Neuro: None Endocrine/Autoimmune: Other GI: None : None HEENT: None Psych: Anxiety, Panic attacks Musculoskeletal: Rheumatoid arthritis Derm: None - Past Surgical History Past Surgical History: No Ortho: Other - Present Medications Home Medications: Ambulatory Orders Medication Instructions Recorded Confirmed dexAMETHasone [Decadron] 4 mg PO DAILY PRN 06/29/21 04/26/22 Adalimumab [Humira] 40 mg SQ 04/26/22 Methotrexate [Methotrexate Sodium] 2.5 mg ORAL DAILY 04/26/22 04/26/22 oxyCODONE [Roxicodone] 5 - 10 mg PO Q6H PRN #20 tablet 04/26/22 predniSONE [Deltasone] 60 mg PO DAILY 6 Days #15 tablet 04/26/22 - Allergies Allergies/Adverse Reactions: Allergies Allergy/AdvReac Type Severity Reaction Status Date / Time No Known Drug Allergies Allergy Verified 04/26/22 01:25 - Social History Does the pt smoke?: Yes Smoking Status: Current every day smoker Does the pt drink ETOH?: No Does the pt have substance abuse?: Yes - Immunizations Immunizations are current?: No Immunizations: No immun - POLST Patient has POLST: No POLST Status: Full Code PD ED PE NORMAL - Vitals Vital signs reviewed: Yes - General General: Alert and oriented X 3, No acute distress, Well developed/nourished - Cardiac Cardiac: RRR, No murmur, No gallop, No rub - Respiratory Respiratory: No respiratory distress, Clear bilaterally - Abdomen Abdomen: Soft, Non tender PD ED PE EXPANDED - Extremities Extremities: Pedal edema bilateral, Other (BLE exanthem; flat erythema that is most concentrated over anterolateral aspects of both ankles, with scattered 1-2 mm non-blanching macules s/o vasculitis ). No: Tenderness, Limited ROM Results - Vitals Vitals: Oxygen O2 Source Room air - Labs Labs: Laboratory Tests 04/26/22 04/26/22 04/26/22 02:11 02:11 02:11 WBC 10.2 RBC 4.01 L Hgb 12.3 L Hct 37.8 L MCV 94.3 H MCH 30.7 MCHC 32.5 RDW 11.9 L Plt Count 466 H MPV 8.2 Neut # (Auto) 6.9 H Lymph # (Auto) 2.2 [place] # (Auto) 0.9 Eos # (Auto) 0.2 Baso # (Auto) 0.1 Absolute Nucleated RBC 0.00 Nucleated RBC % 0.0 ESR PT 13.5 H INR 1.2 APTT 38.3 H Sodium 138 Potassium 3.9 Chloride 102 Carbon Dioxide 27 Anion Gap 9.0 BUN 13 Creatinine 0.8 Estimated GFR (MDRD) 108 Glucose 102 H Calcium 9.0 Total Bilirubin 0.2 AST 21 ALT 13 Alkaline Phosphatase 94 C-Reactive Protein 8.2 H Total Protein 7.8 Albumin 3.5 Globulin 4.3 H Albumin/Globulin Ratio 0.8 L Lipase 25 Urine Color Urine Clarity Urine pH Ur Specific [place] Urine Protein Urine Glucose (UA) Urine Ketones Urine Occult Blood Urine Nitrite Urine Bilirubin Urine Urobilinogen Ur Leukocyte Esterase Urine RBC Urine WBC Ur Squamous Epith Cells Urine Bacteria Urine Mucus Ur Microscopic Review Urine Culture Comments 04/26/22 04/26/22 02:11 05:25 WBC RBC Hgb Hct MCV MCH MCHC RDW Plt Count MPV Neut # (Auto) Lymph # (Auto) [place] # (Auto) Eos # (Auto) Baso # (Auto) Absolute Nucleated RBC Nucleated RBC % ESR 73 H PT INR APTT Sodium Potassium Chloride Carbon Dioxide Anion Gap BUN Creatinine Estimated GFR (MDRD) Glucose Calcium Total Bilirubin AST ALT Alkaline Phosphatase C-Reactive Protein Total Protein Albumin Globulin Albumin/Globulin Ratio Lipase Urine Color YELLOW Urine Clarity CLEAR Urine pH 6.5 Ur Specific [place] 1.025 Urine Protein NEGATIVE Urine Glucose (UA) NEGATIVE Urine Ketones NEGATIVE Urine Occult Blood MODERATE H Urine Nitrite NEGATIVE Urine Bilirubin NEGATIVE Urine Urobilinogen 0.2 (NORMAL) Ur Leukocyte Esterase NEGATIVE Urine RBC 6-10 H Urine WBC 0-3 Ur Squamous Epith Cells RARE Squamous Urine Bacteria Rare Urine Mucus Moderate Strands Ur Microscopic Review INDICATED Urine Culture Comments NOT INDICATED PD MEDICAL DECISION MAKING - ED course Complexity details: reviewed results, re-evaluated patient, considered differential, d/w patient ED course: ESR 73, CRP 8.2. Given patient's h/o rheumatologic problem (unclear if he has a specific/achieved diagnosis) combined with his lack of previously effective medications (humira, methotrexate), these are not unexpected results. Normal WBC, afebrile. I discussed the case with his stripping machine operator, Dr. Carlos Mendoza, recommends increase steroids with subsequent taper (patient is currently taking dexamethasone) and close follow up. Patient tells me he feels that prednisone has been more effective than the decadron, and thus I provided prescription for prednisone 60mg x 4 days, 40mg x 4 days, and then he is to resume his decadron as prescribed. I emphasized the importance that he contact his stripping machine operator and arrange for immediate follow up. Return precautions discussed Departure - Departure Disposition: 01 Home, Self Care Clinical Impression: Polyarthritis Condition: Good Instructions: ED Arthritis Rheumatoid Prescriptions: predniSONE [Deltasone] 60 mg PO DAILY 6 Days #15 tablet oxyCODONE [Roxicodone] 5 - 10 mg PO Q6H PRN #20 tablet PRN Reason: Pain Comments: Follow up with Dr. Carlos Mendoza, your stripping machine operator. Call Wednesday to arrange for next available appointment. You should also make next available appointment with your primary care provider. I am providing you with a prescription for oxycodone (narcotic pain medication) and prednisone (steroid). You are to STOP taking the dexamethasone for the six days of the prednisone prescription, and then resume taking the dexamethasone the day after the last day of the prednisone. Start the prednisone today when you fill the prescription. Take the prednisone as follows: 60 mg (three tablets) by mouth once per day for three days, then 40mg (two tablets) by mouth once per day for three days. Then RESUME taking the dexamethasone as prescribed. Discharge Date/Time: 04/26/22 06:51
[2022-04-26] MEDS ORDERED: DEXAMETHASONE 10 MG/ML VIAL IVP STA (02:04)
[2022-04-26] MEDS ORDERED: HYDROmorphone 1 MG/ML CARPUJECT IVP STA ×3 (02:05→04:24)
[2022-04-26 02:20] LABS: BASOPHILS # (AUTO) 0.1 10^3/uL (0.0-0.1); BASOPHILS % (AUTO) 0.6 %; EOSINOPHILS # (AUTO) 0.2 10^3/uL (0.0-0.7); EOSINOPHILS % (AUTO) 2.2 %; HCT - HEMATOCRIT 37.8 % (42.0-52.0); HGB - HEMOGLOBIN 12.3 g/dL (14.0-18.0); LYMPHOCYTES # (AUTO) 2.2 10^3/uL (1.5-3.5); MEAN CORPUSCULAR HEMOGLOBIN 30.7 pg (27.0-31.0); MEAN CORPUSCULAR HGB CONC 32.5 g/dL (32.0-36.0); MEAN CORPUSCULAR VOLUME 94.3 fL (80.0-94.0); MEAN PLATELET VOLUME 8.2 fL (7.4-11.4); MONOCYTES # (AUTO) 0.9 10^3/uL (0.0-1.0); MONOCYTES % (AUTO) 8.5 %; NEUTROPHILS # (AUTO) 6.9 10^3/uL (1.5-6.6); NEUTROPHILS % (AUTO) 67.4 %; PLT - PLATELET COUNT 466 10^3/uL (130-450); RED BLOOD COUNT 4.01 10^6/uL (4.70-6.10); RED CELL DISTRIBUTION WIDTH 11.9 % (12.0-15.0); WHITE BLOOD COUNT 10.2 x10^3/uL (4.8-10.8)
[2022-04-26] MEDS ORDERED: ONDANSETRON 4 MG/2 ML VIAL IVP STA (02:20)
[2022-04-26 02:31] LABS: INR 1.2 (0.8-1.2); PT - PROTHROMBIN TIME 13.5 secs (9.9-12.6)
[2022-04-26] MEDS ORDERED: ONDANSETRON 4 MG/2 ML VIAL ONE (02:32)
[2022-04-26 02:38] LABS: PARTIAL THROMBOPLASTIN TIME 38.3 secs (24.9-33.3)
[2022-04-26 02:39] LABS: ALBUMIN 3.5 g/dL (3.2-5.5); ALBUMIN/GLOBULIN RATIO 0.8 (1.0-2.2); BILIRUBIN,TOTAL 0.2 mg/dL (0.2-1.0); CREATININE 0.8 mg/dL (0.6-1.2); CRP - C-REACTIVE PROTEIN 8.2 mg/dL (0-1.0); POTASSIUM 3.9 mmol/L (3.5-5.0); TOTAL PROTEIN 7.8 g/dL (6.7-8.2)
[2022-04-26] MEDS ORDERED: CHERRY SYRUP 10 ML UDC PO ONE (02:54)
[2022-04-26] MEDS ORDERED: KETOROLAC 30 MG/ML VIAL IVP STA (03:08)
[2022-04-26] MEDS ORDERED: SODIUM CHLORIDE 0.9% 1,000 ML IV STA (03:10)
[2022-04-26 05:36] LABS: BILIRUBIN,URINE NEGATIVE (NEGATIVE); GLUCOSE, URINE (UA) NEGATIVE (NEGATIVE); KETONES,URINE (UA) NEGATIVE (NEGATIVE); LEUKOCYTE ESTERASE, URINE NEGATIVE (NEGATIVE); NITRITE,URINE NEGATIVE (NEGATIVE); OCCULT BLOOD,URINE MODERATE (NEGATIVE); PH,URINE 6.5 PH (5.0-7.5); PROTEIN,URINE NEGATIVE (NEGATIVE); UROBILINOGEN,URINE 0.2 (NORMAL) E.U./dL (NORMAL)
[2022-04-26] MEDS ORDERED: oxyCODONE 5 MG TABLET PO STA (05:37)
[2022-04-26 05:40] LABS: CLARITY,URINE CLEAR (CLEAR)
[2022-04-26 05:44] LABS: BACTERIA,URINE Rare /HPF (None Seen); SQUAMOUS EPITHELIAL CELL,UR RARE Squamous (<= Few); WBC,URINE 0-3 /HPF (0-3)
[2022-04-26 05:45] LABS: MUCUS,URINE Moderate Strands
[2022-04-26 06:52] VITALS: BP 137/86
== END 2022-04-26 06:51 | disposition home or self-care (01) ==
LOC: ED 01:12
DX: M13.0 Polyarthritis, unspecified (principal); M06.9 Rheumatoid arthritis, unspecified; T39.4X6A Underdosing of antirheumatics, not elsewhere classified, initial encounter; T45.1X6A Underdosing of antineoplastic and immunosuppressive drugs, initial encounter; F17.200 Nicotine dependence, unspecified, uncomplicated
CPT/HCPCS: 36415; 80053; 81001; 83690; 85025; 85610; 85651; 85730; 86140; 96374; 96375; 96376; 99283; 99284; A9270; J1170; 81003; 87086

== ENCOUNTER 2022-09-10 16:51 | Outpatient (CLI) | payer MEDICAID ==
[2022-09-10 20:32] LABS: BASOPHILS # (AUTO) 0.1 10^3/uL (0.0-0.1); EOSINOPHILS # (AUTO) 0.2 10^3/uL (0.0-0.7); EOSINOPHILS % (AUTO) 1.8 %; HCT - HEMATOCRIT 38.8 % (42.0-52.0); HGB - HEMOGLOBIN 12.1 g/dL (14.0-18.0); LYMPHOCYTES # (AUTO) 2.8 10^3/uL (1.5-3.5); LYMPHOCYTES % (AUTO) 31.1 %; MEAN CORPUSCULAR HEMOGLOBIN 28.9 pg (27.0-31.0); MEAN CORPUSCULAR HGB CONC 31.2 g/dL (32.0-36.0); MEAN CORPUSCULAR VOLUME 92.8 fL (80.0-94.0); MEAN PLATELET VOLUME 8.3 fL (7.4-11.4); MONOCYTES # (AUTO) 0.7 10^3/uL (0.0-1.0); MONOCYTES % (AUTO) 8.2 %; NEUTROPHILS # (AUTO) 5.2 10^3/uL (1.5-6.6); NEUTROPHILS % (AUTO) 57.6 %; PLT - PLATELET COUNT 587 10^3/uL (130-450); RED BLOOD COUNT 4.18 10^6/uL (4.70-6.10)
[2022-09-10 20:49] LABS: ALBUMIN 3.6 g/dL (3.2-5.5); ALBUMIN/GLOBULIN RATIO 0.8 (1.0-2.2); ALKALINE PHOSPHATASE 100 IU/L (42-121); ALT ALANINE AMINOTRANSFERASE 10 IU/L (10-60); AST ASPARTATE AMINOTRANSFERASE 14 IU/L (10-42); BILIRUBIN,TOTAL 0.3 mg/dL (0.2-1.0); BUN - BLOOD UREA NITROGEN 21 mg/dL (6-20); CALCIUM 9.2 mg/dL (8.5-10.3); CARBON DIOXIDE - CO2 30 mmol/L (21-32); CHLORIDE 102 mmol/L (101-111); CHOL/HDL RATIO 4.3 (<5.0); CHOLESTEROL 165 mg/dL; CREATININE 0.8 mg/dL (0.6-1.2); CRP - C-REACTIVE PROTEIN 6.3 mg/dL (0-1.0); GFR - MDRD 108 (>89); GLUCOSE 86 mg/dL (70-100); HDL CHOLESTEROL 38 mg/dL; LDL CHOLESTEROL,CALCULATED 100 mg/dL; LDL/HDL RATIO 2.6 (<3.6); POTASSIUM 4.4 mmol/L (3.5-5.0); SODIUM 140 mmol/L (135-145); TOTAL PROTEIN 8.4 g/dL (6.7-8.2); TRIGLYCERIDES 133 mg/dL; VLDL CHOLESTEROL 27 mg/dL
[2022-09-10 21:00] LABS: THYROID STIMULATING HORMONE 1.84 uIU/mL (0.34-5.60)
== END 2022-09-10 16:52 | disposition home or self-care (01) ==
LOC: LAB.N 16:51
PROVIDERS: ATTEND Family Medicine
DX: L40.50 Arthropathic psoriasis, unspecified (principal); F32.A Depression, unspecified; G89.4 Chronic pain syndrome; R76.8 Other specified abnormal immunological findings in serum
CPT/HCPCS: 36415; 80050; 80061; 83721; 85651; 86140

== ENCOUNTER 2023-02-24 22:49 | Outpatient (CLI) | payer MEDICAID | END 2023-02-24 22:50 | disposition left against medical advice (07) | LOC: EMS 22:49 | DX: R41.82 Altered mental status, unspecified (principal); T40.411A Poisoning by fentanyl or fentanyl analogs, accidental (unintentional), initial encounter ==

== ENCOUNTER 2023-06-10 16:42 | Outpatient (CLI) | payer MEDICAID | END 2023-06-10 23:59 | disposition critical access hospital (66) | LOC: EMS 16:42 | DX: T40.411A Poisoning by fentanyl or fentanyl analogs, accidental (unintentional), initial encounter (principal) | CPT/HCPCS: A0425; A0427; A0999 ==

== ENCOUNTER 2023-06-10 17:03 | Emergency (ER) | payer MEDICAID ==
[~2023-06-10 17:03] MED LIST: KETOROLAC 15 MG/ML VIAL IVP STA; LORazepam 2 MG/ML VIAL IVP STA; SODIUM CHLORIDE 0.9% 1,000 ML IV STA
--- NOTE | 2023-06-10 17:05 | ED Physician Documentation ---
History of Present Illness - Stated complaint Stated Complaint: OD - History obtained from History obtained from: Patient, EMS - Additonal information Additional information: 38-year-old gentleman brought in by ambulance after an overdose. He has been using blues for about a month and then today snorted powder that he thought was fentanyl. Then he became unresponsive. His girlfriend administered 2 doses of nasal Narcan on scene and then on the way here for EMS he became apneic again and was administered 0.5 mg of IV Narcan. On arrival he is agitated and in withdrawal stating that everything hurts and complaining of being very cold. PD PAST MEDICAL HISTORY - Past Medical History Cardiovascular: None Respiratory: None Neuro: None Endocrine/Autoimmune: Other GI: None : None HEENT: None Psych: Anxiety, Panic attacks Musculoskeletal: Rheumatoid arthritis Derm: None - Past Surgical History Past Surgical History: No Ortho: Other - Present Medications Home Medications: Ambulatory Orders Medication Instructions Recorded Confirmed dexAMETHasone [Decadron] 4 mg PO DAILY PRN 06/29/21 04/26/22 Adalimumab [Humira] 40 mg SQ 04/26/22 Methotrexate [Methotrexate Sodium] 2.5 mg ORAL DAILY 04/26/22 04/26/22 oxyCODONE [Roxicodone] 5 - 10 mg PO Q6H PRN #20 tablet 04/26/22 predniSONE [Deltasone] 60 mg PO DAILY 6 Days #15 tablet 04/26/22 Dicyclomine [Bentyl] 1 - 2 tab PO QID PRN #20 cap 05/25/22 Ondansetron Odt [Zofran] 4 mg TL Q6H PRN #10 tablet 05/25/22 - Allergies Allergies/Adverse Reactions: Allergies Allergy/AdvReac Type Severity Reaction Status Date / Time No Known Drug Allergies Allergy Verified 06/10/23 17:07 - Social History Does the pt smoke?: Yes Smoking Status: Current every day smoker Does the pt drink ETOH?: No Does the pt have substance abuse?: Yes - Immunizations Immunizations are current?: No Immunizations: No immun - POLST Patient has POLST: No POLST Status: Full Code PD ED PE NORMAL - Vitals Vital signs reviewed: Yes - General General: Alert and oriented X 3, Other (He is agitated and stating that everything is hurting him. He is cooperative though.) - HEENT HEENT: Other (Smallish pupils, 3 mm and reactive, symmetric) - Neck Neck: Supple, no meningeal sign, No bony TTP - Cardiac Cardiac: Other (Tachycardic but regular without murmur) - Respiratory Respiratory: No respiratory distress, Clear bilaterally - Abdomen Abdomen: Non tender - Neuro Neuro: Alert and oriented X 3 Eye Opening: Spontaneous Motor: Obeys Commands Verbal: Oriented GCS Score: 15 - Psych Psych: Other (Agitated and withdrawing) Results - Vitals Vitals: Vital Signs - 24 hr 06/10/23 06/10/23 06/10/23 17:03 17:36 17:38 Temperature 36 C L Heart Rate 109 H 100 100 Respiratory 22 19 15 Rate Blood Pressure 130/88 H 130/112 H 130/97 H O2 Saturation 100 96 98 06/10/23 06/10/23 06/10/23 18:00 18:30 19:00 Temperature Heart Rate 103 H 116 H 119 H Respiratory 23 20 21 Rate Blood Pressure 138/89 H 129/77 120/71 O2 Saturation 97 96 97 06/10/23 06/10/23 06/10/23 20:00 20:25 20:57 Temperature Heart Rate 120 H 123 H 118 H Respiratory 20 13 18 Rate Blood Pressure 136/77 H 126/75 134/66 H O2 Saturation 97 98 98 06/10/23 06/10/23 06/10/23 21:47 22:30 23:00 Temperature Heart Rate 111 H 101 H 101 H Respiratory 15 16 14 Rate Blood Pressure 123/83 H 111/80 110/90 H O2 Saturation 94 98 98 06/11/23 06/11/23 06/11/23 00:00 02:20 03:00 Temperature Heart Rate 100 86 97 Respiratory 14 18 17 Rate Blood Pressure 110/90 H 113/86 H 130/82 H O2 Saturation 98 98 97 06/11/23 06/11/23 06/11/23 04:00 05:00 07:14 Temperature Heart Rate 91 98 115 H Respiratory 18 17 20 Rate Blood Pressure 134/89 H O2 Saturation 98 99 100 Oxygen O2 Source Room air - Labs Labs: Laboratory Tests 06/10/23 06/10/23 06/10/23 17:10 17:10 20:07 WBC 8.3 RBC 4.29 L Hgb 12.2 L Hct 37.3 L MCV 86.9 MCH 28.4 MCHC 32.7 RDW 13.1 Plt Count 497 H MPV 7.5 Neut # (Auto) 4.6 Lymph # (Auto) 2.4 Snyder # (Auto) 1.1 H Eos # (Auto) 0.2 Baso # (Auto) 0.1 Absolute Nucleated RBC 0.00 Nucleated RBC % 0.0 Sodium 136 Potassium 3.2 L Chloride 98 L Carbon Dioxide 29 Anion Gap 9.0 BUN 12 Creatinine 0.7 Estimated GFR (MDRD) 126 Glucose 94 Calcium 10.1 Magnesium 1.6 L Total Bilirubin 0.3 AST 16 ALT 7 L Alkaline Phosphatase 113 Total Creatine Kinase 131 Total Protein 8.1 Albumin 4.0 Globulin 4.1 Albumin/Globulin Ratio 1.0 Lipase 78 TSH 1.35 Urine Color YELLOW Urine Clarity CLEAR Urine pH 8.0 H Ur Specific [place] 1.015 Urine Protein NEGATIVE Urine Glucose (UA) NEGATIVE Urine Ketones >=80 H Urine Occult Blood MODERATE H Urine Nitrite NEGATIVE Urine Bilirubin NEGATIVE Urine Urobilinogen 0.2 (NORMAL) Ur Leukocyte Esterase NEGATIVE Urine RBC 11-25 H Urine WBC 0-3 Ur Squamous Epith Cells NONE SEEN Urine Bacteria None Seen Ur Microscopic Review INDICATED Urine Culture Comments NOT INDICATED Salicylates < 1.5 Urine Opiates Screen NEGATIVE Ur Oxycodone Screen NEGATIVE Urine Methadone Screen NEGATIVE Ur Propoxyphene Screen NEGATIVE Acetaminophen 0.4 Ur Barbiturates Screen NEGATIVE Ur Tricyclics Screen NEGATIVE Ur Phencyclidine Scrn NEGATIVE Ur Amphetamine Screen POSITIVE H U Methamphetamines Scrn POSITIVE H U Benzodiazepines Scrn POSITIVE H Urine Cocaine Screen NEGATIVE U Cannabinoids Screen POSITIVE H Ethyl Alcohol < 10.0 PD Medical Decision Making - ED course ED course: 38-year-old gentleman who had a respiratory arrest, but now is in acute withdrawal from chronic fentanyl use. He was quite agitated and was administered divided doses of Ativan for anxiolysis with improvement. After that he was coming down off probably a variety of substances and needed extra time in the department with the plan to signout to the oncoming overnight emergency physician for social work consultation in the morning and hopeful rehab if he is accepting. Departure - Departure Disposition: 01 Home, Self Care Clinical Impression: Respiratory arrest, Overdose of fentanyl, Polysubstance abuse Condition: Stable Instructions: ED Drug Abuse General Forms: PCP List Discharge Date/Time: 06/11/23 10:13
[2023-06-10] MEDS ORDERED: NALOXONE HCL NASAL SPRAY KIT NAS STA (17:06)
[2023-06-10 17:15] LABS: BASOPHILS # (AUTO) 0.1 10^3/uL (0.0-0.1); BASOPHILS % (AUTO) 0.7 %; EOSINOPHILS # (AUTO) 0.2 10^3/uL (0.0-0.7); EOSINOPHILS % (AUTO) 1.8 %; HCT - HEMATOCRIT 37.3 % (42.0-52.0); HGB - HEMOGLOBIN 12.2 g/dL (14.0-18.0); LYMPHOCYTES # (AUTO) 2.4 10^3/uL (1.5-3.5); LYMPHOCYTES % (AUTO) 28.5 %; MEAN CORPUSCULAR HEMOGLOBIN 28.4 pg (27.0-31.0); MEAN CORPUSCULAR HGB CONC 32.7 g/dL (32.0-36.0); MEAN CORPUSCULAR VOLUME 86.9 fL (80.0-94.0); MEAN PLATELET VOLUME 7.5 fL (7.4-11.4); MONOCYTES # (AUTO) 1.1 10^3/uL (0.0-1.0); MONOCYTES % (AUTO) 12.7 %; NEUTROPHILS # (AUTO) 4.6 10^3/uL (1.5-6.6); NEUTROPHILS % (AUTO) 56.1 %; PLT - PLATELET COUNT 497 10^3/uL (130-450); RED BLOOD COUNT 4.29 10^6/uL (4.70-6.10); RED CELL DISTRIBUTION WIDTH 13.1 % (12.0-15.0); WHITE BLOOD COUNT 8.3 x10^3/uL (4.8-10.8)
[2023-06-10 17:35] LABS: ACETAMINOPHEN 0.4 ug/mL; ALKALINE PHOSPHATASE 113 IU/L (42-121); ALT ALANINE AMINOTRANSFERASE 7 IU/L (10-60); AST ASPARTATE AMINOTRANSFERASE 16 IU/L (10-42); BILIRUBIN,TOTAL 0.3 mg/dL (0.2-1.0); BUN - BLOOD UREA NITROGEN 12 mg/dL (6-20); CALCIUM 10.1 mg/dL (8.5-10.3); CARBON DIOXIDE - CO2 29 mmol/L (21-32); CHLORIDE 98 mmol/L (101-111); CK- CREATINE KINASE 131 IU/L (30-223); CREATININE 0.7 mg/dL (0.6-1.3); ETOH - ETHANOL < 10.0 mg/dL; GFR - MDRD 126 (>89); GLUCOSE 94 mg/dL (74-104); LIPASE 78 U/L (11-82); MAGNESIUM 1.6 mg/dL (1.7-2.3); POTASSIUM 3.2 mmol/L (3.5-4.5); SODIUM 136 mmol/L (135-145); TOTAL PROTEIN 8.1 g/dL (6.4-8.9)
[2023-06-10 17:45] LABS: THYROID STIMULATING HORMONE 1.35 uIU/mL (0.34-5.60)
[2023-06-10] MEDS ORDERED: LORazepam 2 MG/ML VIAL IVP STA (17:54)
[2023-06-10 17:57] LABS: SALICYLATE < 1.5 mg/dL
[2023-06-10 20:14] LABS: MUDS CUTOFF CONCENTRATIONS CUTOFF CONC BELOW:
[2023-06-10 20:15] LABS: BILIRUBIN,URINE NEGATIVE (NEGATIVE); GLUCOSE, URINE (UA) NEGATIVE (NEGATIVE); KETONES,URINE (UA) >=80 mg/dL (NEGATIVE); LEUKOCYTE ESTERASE, URINE NEGATIVE (NEGATIVE); NITRITE,URINE NEGATIVE (NEGATIVE); OCCULT BLOOD,URINE MODERATE (NEGATIVE); PROTEIN,URINE NEGATIVE (NEGATIVE); UROBILINOGEN,URINE 0.2 (NORMAL) E.U./dL (NORMAL)
[2023-06-10 20:16] LABS: CLARITY,URINE CLEAR (CLEAR)
[2023-06-10 20:26] LABS: AMPHETAMINE SCREEN,URINE POSITIVE (NEGATIVE); BARBITURATE SCREEN,UR NEGATIVE (NEGATIVE); BENZODIAZEPINES SCREEN, URINE POSITIVE (NEGATIVE); COCAINE SCREEN URINE NEGATIVE (NEGATIVE); METHADONE SCREEN, URINE NEGATIVE (NEGATIVE); METHAMPHETAMINES SCREEN, URINE POSITIVE (NEGATIVE); OPIATE SCREEN, URINE NEGATIVE (NEGATIVE); OXYCODONE SCREEN, URINE NEGATIVE (NEGATIVE); PROPOXYPHENE SCREEN, URINE NEGATIVE (NEGATIVE); THC CANNABINOID SCREEN, URINE POSITIVE (NEGATIVE); TRICYCLIC ANTIDEPRESSANT,URINE NEGATIVE (NEGATIVE)
[2023-06-10 20:34] LABS: BACTERIA,URINE None Seen /HPF (None Seen); SQUAMOUS EPITHELIAL CELL,UR NONE SEEN (<= Few); WBC,URINE 0-3 /HPF (0-3)
[2023-06-11 07:16] VITALS: BP 134/89; O2SAT 100
[2023-06-11] MEDS ORDERED: NAPROXEN 250 MG TABLET PO STA (08:59)
--- NOTE | 2023-06-11 09:20 | ED Physician Documentation ---
ED Addendum - Addendum Addendum: 06/11/23 09:19 The patient was signed out to me at change of shift, pending social work evaluation after presenting to the emergency department for fentanyl overdose. The patient regularly uses fentanyl as well as other substances and had declared that he was not suicidal when using the drug. He was evaluated by public health social worker and offered detox but the patient stated he did not want detox. He would like to leave. The patient has been calm and cooperative here in the emergency de partment and is neither a danger to himself or others at this point in time and I feel it is reasonable to discharge him. We have discussed the usual indications for follow-up and return.
[2023-06-11] MEDS ORDERED: NALOXONE HCL NASAL SPRAY KIT NAS STA (10:08)
== END 2023-06-11 10:13 | disposition home or self-care (01) ==
LOC: ED 17:03
DX: T40.411A Poisoning by fentanyl or fentanyl analogs, accidental (unintentional), initial encounter (principal); F19.90 Other psychoactive substance use, unspecified, uncomplicated; R06.03 Acute respiratory distress; F17.200 Nicotine dependence, unspecified, uncomplicated
CPT/HCPCS: 36415; 80053; 80306; 80307; 80320; 80329; 81001; 82550; 83690; 83735; 84443; 85025; 96374; 96375; 96376; 99283; 99284; A9270; G2215; J2060; 81003; 87086

== ENCOUNTER 2023-10-17 20:40 | Emergency (ER) | payer MEDICAID ==
[2023-10-17] MEDS ORDERED: BUPRENORPHINE/NALOXONE 8-2 MG TAB SL STA ×2 (20:43→22:26)
[2023-10-17] MEDS ORDERED: SODIUM CHLORIDE 0.9% 1,000 ML IV STA (20:44)
--- NOTE | 2023-10-17 20:44 | ED Physician Documentation ---
History of Present Illness - Stated complaint Stated Complaint: AMS - History obtained from History obtained from: Patient, EMS - Additonal information Additional information: 38yoM presents by EMS for total body pain and aches. Patient has been using fentanyl for the last 6 months, last use 2 days ago. Patient's mother called 911 for symptoms, patient states that he is ready to consider going to rehab. Review of Systems Constitutional: reports: Myalgias. denies: Fever, Chills Cardiac: denies: Chest pain / pressure, Palpitations, Calf pain Respiratory: denies: Dyspnea, Cough, Wheezing GI: denies: Abdominal Pain, Nausea, Vomiting : denies: Dysuria, Frequency, Hesitancy PD PAST MEDICAL HISTORY - Past Medical History Cardiovascular: None Respiratory: None Neuro: None Endocrine/Autoimmune: Other GI: None : None HEENT: None Psych: Anxiety, Panic attacks Musculoskeletal: Rheumatoid arthritis Derm: None - Past Surgical History Past Surgical History: No Ortho: Other - Present Medications Home Medications: Ambulatory Orders Medication Instructions Recorded Confirmed Methotrexate [Methotrexate Sodium] 2.5 mg ORAL DAILY 04/26/22 04/26/22 predniSONE [Deltasone] 60 mg PO DAILY 6 Days #15 tablet 04/26/22 Amoxicillin 500 mg PO 10/17/23 Baclofen [Lioresal] 10 mg PO TID PRN #15 tablet 10/17/23 Buprenorphine HCl/Naloxone HCl 1 each SL DAILY #20 film 10/17/23 [Suboxone 8 mg-2 mg Sl Film] Gabapentin [Neurontin] 100 mg PO QPM 10/17/23 10/17/23 Solaris For Ra 10/17/23 cloNIDine [Catapres] 0.1 mg PO Q2H PRN #20 tablet 10/17/23 - Allergies Allergies/Adverse Reactions: Allergies Allergy/AdvReac Type Severity Reaction Status Date / Time No Known Drug Allergies Allergy Verified 10/17/23 20:55 - Social History Does the pt smoke?: Yes Smoking Status: Current every day smoker Does the pt drink ETOH?: No Does the pt have substance abuse?: Yes - Immunizations Immunizations are current?: No Immunizations: No immun - POLST Patient has POLST: No POLST Status: Full Code PD ED PE NORMAL - Vitals Vital signs reviewed: Yes - General General: Alert and oriented X 3, Well developed/nourished - Cardiac Cardiac: No murmur, Strong equal pulses, Other (tachycardia) - Respiratory Respiratory: No respiratory distress, Clear bilaterally - Abdomen Abdomen: Soft, Non tender, Non distended - Derm Derm: Normal color, Warm and dry, No rash - Extremities Extremities: No deformity, No tenderness to palpate, Normal ROM s pain, No edema - Neuro Neuro: Alert and oriented X 3, skidder operator 2-12 intact, No motor deficit, Normal speech - Psych Psych: Normal mood, Normal affect Results - Vitals Vitals: Vital Signs - 24 hr 10/17/23 10/17/23 20:40 22:50 Temperature 37.1 C 37.0 C Heart Rate 106 H 96 Respiratory 16 16 Rate Blood Pressure 142/86 H 140/82 H O2 Saturation 97 98 Oxygen O2 Source Room air - Labs Labs: Laboratory Tests 10/17/23 10/17/23 10/17/23 20:46 20:46 22:40 WBC 9.1 RBC 3.46 L Hgb 10.0 L Hct 32.2 L MCV 93.1 MCH 28.9 MCHC 31.1 L RDW 14.0 Plt Count 549 H MPV 7.5 Neut # (Auto) 5.0 Lymph # (Auto) 2.8 Elliott # (Auto) 1.0 Eos # (Auto) 0.3 Baso # (Auto) 0.1 Absolute Nucleated RBC 0.00 Nucleated RBC % 0.0 Sodium 140 Potassium 3.9 Chloride 104 Carbon Dioxide 28 Anion Gap 8.0 BUN 13 Creatinine 0.6 Estimated GFR (MDRD) 150 Glucose 107 H Calcium 8.8 Total Bilirubin 0.2 AST 11 ALT 6 L Alkaline Phosphatase 98 Total Protein 7.2 Albumin 3.4 Globulin 3.8 Albumin/Globulin Ratio 0.9 L Urine Color YELLOW Urine Clarity HAZY Urine pH 6.0 Ur Specific [place] <=1.005 Urine Protein NEGATIVE Urine Glucose (UA) NEGATIVE Urine Ketones NEGATIVE Urine Occult Blood MODERATE H Urine Nitrite NEGATIVE Urine Bilirubin NEGATIVE Urine Urobilinogen 0.2 (NORMAL) Ur Leukocyte Esterase NEGATIVE Urine RBC 6-10 H Urine WBC 0-3 Ur Squamous Epith Cells NONE SEEN Urine Bacteria Few Ur Microscopic Review INDICATED Urine Culture Comments NOT INDICATED Salicylates < 1.5 Urine Opiates Screen NEGATIVE Ur Buprenorphine Scrn POSITIVE H Ur Oxycodone Screen NEGATIVE Urine Methadone Screen NEGATIVE Acetaminophen 0.3 Ur Barbiturates Screen NEGATIVE Ur Tricyclics Screen NEGATIVE Ur Phencyclidine Scrn NEGATIVE Ur Amphetamine Screen POSITIVE H U Methamphetamines Scrn POSITIVE H U Benzodiazepines Scrn NEGATIVE Urine Cocaine Screen NEGATIVE U Cannabinoids Screen POSITIVE H Ur Drug Screen Comment CUTOFF CONC BELOW: Ethyl Alcohol < 10.0 PD Medical Decision Making - ED course Complexity details: reviewed results, re-evaluated patient, considered differential, d/w patient ED course: Body pain from opiate withdrawal. Patient was given clonidine, baclofen, Suboxone with some improvement in symptoms. Medically cleared, no indication for admission. Patient advised that if he has ongoing withdrawals or rehab needs he needs to contact [facility] to see about inpatient rehab. Suboxone, clonidine, baclofen sent to pharmacy of choice. Departure - Departure Disposition: Home, Self Care Clinical Impression: Opiate withdrawal Condition: Stable Instructions: ED Narcotic Abuse Prescriptions: cloNIDine [Catapres] 0.1 mg PO Q2H PRN #20 tablet PRN Reason: Pain 5-7 Baclofen [Lioresal] 10 mg PO TID PRN #15 tablet PRN Reason: Pain 1-4 Buprenorphine HCl/Naloxone HCl [Suboxone 8 mg-2 mg Sl Film] 1 each SL DAILY #20 film Comments: [facility] [phone] [address] [facility] [id number] RX SENT TO [facility] Forms: PCP List Discharge Date/Time: 10/17/23 22:50
[2023-10-17 20:52] LABS: BASOPHILS # (AUTO) 0.1 10^3/uL (0.0-0.1); BASOPHILS % (AUTO) 1.1 %; EOSINOPHILS # (AUTO) 0.3 10^3/uL (0.0-0.7); EOSINOPHILS % (AUTO) 2.8 %; HCT - HEMATOCRIT 32.2 % (42.0-52.0); LYMPHOCYTES # (AUTO) 2.8 10^3/uL (1.5-3.5); LYMPHOCYTES % (AUTO) 30.2 %; MEAN CORPUSCULAR HEMOGLOBIN 28.9 pg (27.0-31.0); MEAN CORPUSCULAR HGB CONC 31.1 g/dL (32.0-36.0); MEAN CORPUSCULAR VOLUME 93.1 fL (80.0-94.0); MEAN PLATELET VOLUME 7.5 fL (7.4-11.4); MONOCYTES % (AUTO) 10.5 %; NEUTROPHILS % (AUTO) 55.1 %; PLT - PLATELET COUNT 549 10^3/uL (130-450); RED BLOOD COUNT 3.46 10^6/uL (4.70-6.10); WHITE BLOOD COUNT 9.1 x10^3/uL (4.8-10.8)
[2023-10-17 21:06] LABS: ACETAMINOPHEN 0.3 ug/mL; ALBUMIN 3.4 g/dL (3.2-5.5); ALBUMIN/GLOBULIN RATIO 0.9 (1.0-2.2); ALKALINE PHOSPHATASE 98 IU/L (42-121); ALT ALANINE AMINOTRANSFERASE 6 IU/L (10-60); AST ASPARTATE AMINOTRANSFERASE 11 IU/L (10-42); BILIRUBIN,TOTAL 0.2 mg/dL (0.2-1.0); BUN - BLOOD UREA NITROGEN 13 mg/dL (6-20); CALCIUM 8.8 mg/dL (8.5-10.3); CARBON DIOXIDE - CO2 28 mmol/L (21-32); CHLORIDE 104 mmol/L (101-111); CREATININE 0.6 mg/dL (0.6-1.3); ETOH - ETHANOL < 10.0 mg/dL; GFR - MDRD 150 (>89); GLUCOSE 107 mg/dL (74-104); POTASSIUM 3.9 mmol/L (3.5-4.5); SALICYLATE < 1.5 mg/dL; SODIUM 140 mmol/L (135-145); TOTAL PROTEIN 7.2 g/dL (6.4-8.9)
[2023-10-17] MEDS ORDERED: cloNIDine 0.1 MG TABLET PO STA (22:24)
[2023-10-17 22:49] LABS: BILIRUBIN,URINE NEGATIVE (NEGATIVE); GLUCOSE, URINE (UA) NEGATIVE (NEGATIVE); KETONES,URINE (UA) NEGATIVE (NEGATIVE); LEUKOCYTE ESTERASE, URINE NEGATIVE (NEGATIVE); NITRITE,URINE NEGATIVE (NEGATIVE); OCCULT BLOOD,URINE MODERATE (NEGATIVE); PROTEIN,URINE NEGATIVE (NEGATIVE); UROBILINOGEN,URINE 0.2 (NORMAL) E.U./dL (NORMAL)
[2023-10-17 22:54] LABS: CLARITY,URINE HAZY (CLEAR)
[2023-10-17 22:59] VITALS: BP 140/82; O2SAT 98
[2023-10-17] MEDS ORDERED: BACLOFEN 10 MG TABLET PO SCH (23:00)
[2023-10-17 23:04] LABS: WBC,URINE 0-3 /HPF (0-3)
[2023-10-17 23:05] LABS: BACTERIA,URINE Few /HPF (None Seen); COCAINE SCREEN URINE NEGATIVE (NEGATIVE); METHAMPHETAMINES SCREEN, URINE POSITIVE (NEGATIVE); OPIATE SCREEN, URINE NEGATIVE (NEGATIVE); SQUAMOUS EPITHELIAL CELL,UR NONE SEEN (<= Few); THC CANNABINOID SCREEN, URINE POSITIVE (NEGATIVE)
[2023-10-17 23:06] LABS: AMPHETAMINE SCREEN,URINE POSITIVE (NEGATIVE); BARBITURATE SCREEN,UR NEGATIVE (NEGATIVE); BENZODIAZEPINES SCREEN, URINE NEGATIVE (NEGATIVE); BUPRENORPHINE SCREEN, URINE POSITIVE (NEGATIVE); METHADONE SCREEN, URINE NEGATIVE (NEGATIVE); OXYCODONE SCREEN, URINE NEGATIVE (NEGATIVE); TRICYCLIC ANTIDEPRESSANT,URINE NEGATIVE (NEGATIVE)
== END 2023-10-17 22:50 | disposition home or self-care (01) ==
LOC: EDUNIT# → ED 20:40
DX: F11.23 Opioid dependence with withdrawal (principal); F17.200 Nicotine dependence, unspecified, uncomplicated
CPT/HCPCS: 36415; 80053; 80306; 80307; 80320; 80329; 81001; 85025; 96360; 99283; 99284; A9270; 81003; 87086

== ENCOUNTER 2023-11-19 00:34 | Emergency (ER) | payer MEDICAID ==
[2023-11-19 01:01] VITALS: O2SAT 95
--- NOTE | 2023-11-19 01:04 | ED Physician Documentation ---
History of Present Illness - Stated complaint Stated Complaint: BODY PX - Chief complaint Chief Complaint: General - History obtained from History obtained from: Patient - Additonal information Additional information: 38yM with pmh chronic pain, RA, recent ED visit last month for fentanyl withdrawal p/w withdrawal again tonight. patient states the suboxone prescription he was provided last month was helpful but then he followed up with a pcp who referred him to [place] for pain management and he was unable to get a ride there. He then started using fentanyl again after running out of suboxone. He is requesting prescription refill. PD PAST MEDICAL HISTORY - Past Medical History Past Medical History: Yes Cardiovascular: None Respiratory: None Neuro: None Endocrine/Autoimmune: Other GI: None : None HEENT: None Psych: Anxiety, Panic attacks, Other Musculoskeletal: Rheumatoid arthritis Derm: None Other Past Medical History: Opiates abuse - Past Surgical History Past Surgical History: Yes Ortho: Other - Present Medications Home Medications: Ambulatory Orders Medication Instructions Recorded Confirmed Methotrexate [Methotrexate Sodium] 2.5 mg ORAL DAILY 04/26/22 04/26/22 Baclofen [Lioresal] 10 mg PO TID PRN #15 tablet 10/17/23 Buprenorphine HCl/Naloxone HCl 1 each SL DAILY #20 film 10/17/23 [Suboxone 8 mg-2 mg Sl Film] Gabapentin [Neurontin] 100 mg PO QPM 10/17/23 10/17/23 Solaris For Ra 10/17/23 cloNIDine [Catapres] 0.1 mg PO Q2H PRN #20 tablet 10/17/23 Baclofen [Lioresal] 10 mg PO TID PRN #15 tablet 11/19/23 Buprenorphine HCl/Naloxone HCl 1 each SL QDAC PRN #20 film 11/19/23 [Suboxone 8 mg-2 mg Sl Film] cloNIDine [Catapres] 0.1 mg PO TID PRN #15 tablet 11/19/23 - Allergies Allergies/Adverse Reactions: Allergies Allergy/AdvReac Type Severity Reaction Status Date / Time No Known Drug Allergies Allergy Verified 11/19/23 00:58 - Social History Does the pt smoke?: Yes Smoking Status: Current every day smoker Does the pt drink ETOH?: No Does the pt have substance abuse?: Yes - Immunizations Immunizations are current?: No Immunizations: No immun - POLST Patient has POLST: No POLST Status: Full Code PD ED PE NORMAL - Vitals Vital signs reviewed: Yes - General General: Alert and oriented X 3, No acute distress, Well developed/nourished, Other (anxious appearing) - HEENT HEENT: Atraumatic, PERRL, EOMI - Neck Neck: Supple, no meningeal sign - Cardiac Cardiac: RRR - Respiratory Respiratory: No respiratory distress, Clear bilaterally - Derm Derm: Normal color, Warm and dry Results - Vitals Vitals: Oxygen O2 Source Room air PD Medical Decision Making - ED course ED course: 38yM with pmh RA, chronic pain, fentanyl dependence (smoker) p/w fentanyl withdrawal and request for suboxone. otherwise well appearing. he has mild tachycardia that resolves when taking slow calming breaths upon physical exam of the lungs. I advised him I can refill his suboxone but then he will need to see a pcp for follow up once again and request suboxone script. return precautions given. Departure - Departure Disposition: 01 Home, Self Care Clinical Impression: Fentanyl dependence, Withdrawal from opioids Condition: Stable Instructions: ED Narcotic Abuse Prescriptions: cloNIDine [Catapres] 0.1 mg PO TID PRN #15 tablet PRN Reason: Pain >8 Baclofen [Lioresal] 10 mg PO TID PRN #15 tablet PRN Reason: Pain >8 Buprenorphine HCl/Naloxone HCl [Suboxone 8 mg-2 mg Sl Film] 1 each SL QDAC PRN #20 film PRN Reason: Pain >8 Comments: You were seen in the emergency department for withdrawal symptoms. Prescriptions sent electronically to your pharmacy. Please follow-up with your primary care provider and return to the emergency department if you have any new or worsening symptoms or other concerns. Forms: PCP List Discharge Date/Time: 11/19/23 01:40
[2023-11-19] MEDS: BACLOFEN 10 MG TABLET PO STA (01:27)
[2023-11-19] MEDS: cloNIDine 0.1 MG TABLET PO STA (01:27)
[2023-11-19] MEDS: BUPRENORPHINE/NALOXONE 8-2 MG TAB SL STA (01:27)
[2023-11-19 02:18] VITALS: BP 167/80
== END 2023-11-19 01:40 | disposition home or self-care (01) ==
LOC: ED 00:34
DX: F11.23 Opioid dependence with withdrawal (principal); F17.200 Nicotine dependence, unspecified, uncomplicated; Z76.0 Encounter for issue of repeat prescription; Z79.899 Other long term (current) drug therapy
CPT/HCPCS: 99283; 99284; A9270

== ENCOUNTER 2023-11-25 19:30 | Outpatient (CLI) | payer MEDICAID | END 2023-11-25 19:31 | disposition EMS.NT | LOC: EMS 19:30 | DX: T40.2X1A Poisoning by other opioids, accidental (unintentional), initial encounter (principal) ==

== ENCOUNTER 2023-12-31 16:02 | Emergency (ER) | payer MEDICAID ==
[2023-12-31 16:12] VITALS: BP 150/97; O2SAT 99
--- NOTE | 2023-12-31 16:58 | ED Physician Documentation ---
PD HPI NVD - Stated complaint Stated Complaint: DETOX - Chief complaint Chief Complaint: General - History obtained from History obtained from: Patient - History of Present Illness Timing - onset: How many days ago (3) Timing - duration: Days (3) Timing - details: Gradual onset, Still present (he has chronic back pain, fibromyalgia, and RA. 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 Has not had recent provider willing to Rx pain meds so he finds illicit sources fentanyl. Has been off Fentanyl 3 days and is having withdrawal symptoms.) Associated symptoms: Abdominal pain, Loss of appetite. No: Fever, Near syncope / syncope Contributing factors: Other (fentanyl withdrawal, last use 3 days ago.). No: Sick contact, Bad food Recently seen: Clinic (was at [facility] to try to get Rx for withdrawal without comiing to ED. The provider there said he needed to come to ED as they do not give Rx for suboxone nor treat withdrawals in the clinic.), Emergency Dept (has a manager acquisition for his autoimmune problems. But does not have pain clinic as referral to one was in [place] and he cannot get there regularly. Local clinic providers not willing to Rx him suboxone or pain meds, according to pt. He has been to ED couple times past few months for Rxs.) Review of Systems Constitutional: reports: Myalgias, Fatigue. denies: Fever, Chills Throat: denies: Sore throat Cardiac: denies: Chest pain / pressure Respiratory: denies: Dyspnea, Cough GI: reports: Abdominal Pain, Nausea, Vomiting. denies: Diarrhea PD PAST MEDICAL HISTORY - Past Medical History Past Medical History: Yes Cardiovascular: None Respiratory: None Neuro: None Endocrine/Autoimmune: Other GI: None : None HEENT: None Psych: Anxiety, Panic attacks, Other Musculoskeletal: Rheumatoid arthritis, Chronic back pain Derm: None - Past Surgical History Past Surgical History: Yes Ortho: Other - Present Medications Home Medications: Ambulatory Orders Medication Instructions Recorded Confirmed Methotrexate [Methotrexate Sodium] 2.5 mg ORAL DAILY 04/26/22 04/26/22 Baclofen [Lioresal] 10 mg PO TID PRN #15 tablet 10/17/23 Buprenorphine HCl/Naloxone HCl 1 each SL DAILY #20 film 10/17/23 [Suboxone 8 mg-2 mg Sl Film] Gabapentin [Neurontin] 100 mg PO QPM 10/17/23 10/17/23 Solaris For Ra 10/17/23 cloNIDine [Catapres] 0.1 mg PO Q2H PRN #20 tablet 10/17/23 Baclofen [Lioresal] 10 mg PO TID PRN #15 tablet 11/19/23 Buprenorphine HCl/Naloxone HCl 1 each SL QDAC PRN #20 film 11/19/23 [Suboxone 8 mg-2 mg Sl Film] cloNIDine [Catapres] 0.1 mg PO TID PRN #15 tablet 11/19/23 Baclofen [Lioresal] 10 mg PO TID PRN #50 tablet 12/31/23 Buprenorphine HCl/Naloxone HCl 1 each SL DAILY #21 film 12/31/23 [Suboxone 8 mg-2 mg Sl Film] Ondansetron Odt [Zofran] 4 mg TL Q6H PRN #15 tablet 12/31/23 cloNIDine [Catapres] 0.1 mg PO BID #40 tablet 12/31/23 - Allergies Allergies/Adverse Reactions: Allergies Allergy/AdvReac Type Severity Reaction Status Date / Time No Known Drug Allergies Allergy Verified 12/31/23 16:05 - Social History Does the pt smoke?: Yes Smoking Status: Current every day smoker Does the pt drink ETOH?: No Does the pt have substance abuse?: Yes - Immunizations Immunizations are current?: No Immunizations: No immun - POLST Patient has POLST: No POLST Status: Full Code PD ED PE NORMAL - Vitals Vital signs reviewed: Yes - General General: Alert and oriented X 3, Well developed/nourished, Other (shaky, appears weak. nausea but no vomiting in ED. ) - HEENT HEENT: Pharynx benign - Neck Neck: Supple, no meningeal sign, No adenopathy - Cardiac Cardiac: RRR, No murmur - Respiratory Respiratory: Clear bilaterally - Abdomen Abdomen: Soft, Non distended - Derm Derm: Normal color, Warm and dry - Extremities Extremities: No edema - Neuro Neuro: Alert and oriented X 3, Normal speech Results - Vitals Vitals: Vital Signs - 24 hr 12/31/23 16:05 Temperature 36.5 C Heart Rate 87 Respiratory 16 Rate Blood Pressure 150/97 H O2 Saturation 99 Oxygen O2 Source Room air PD Medical Decision Making - ED course Complexity details: considered differential, d/w patient Departure - Departure Disposition: Home, Self Care Clinical Impression: Chronic back pain, Fibromyalgia, Opioid use disorder Condition: Stable Record reviewed to determine appropriate education?: Yes Follow-Up: [facility] [place] [Provider Group] [facility] [Provider Group] Prescriptions: cloNIDine [Catapres] 0.1 mg PO BID #40 tablet Baclofen [Lioresal] 10 mg PO TID PRN #50 tablet PRN Reason: Spasms Buprenorphine HCl/Naloxone HCl [Suboxone 8 mg-2 mg Sl Film] 1 each SL DAILY #21 film Ondansetron Odt [Zofran] 4 mg TL Q6H PRN #15 tablet PRN Reason: Nausea / Vomiting Comments: I wrote prescriptions for the buprenorphine/naloxone daily for the next few weeks. In addition baclofen muscle relaxant for spasms and pain in your back. This can be helpful for fibromyalgia as well. Clonidine twice daily can be helpful for some of the withdrawal symptoms as well. I also wrote for Zofran/ondansetron if needed for nausea in the short-term. You will need to find a primary care or pain clinic that can manage with some of the other medications aside from the rheumatologic medicines from your manager acquisition. We will be reluctant to keep refilling medications to the ER for these. It was good that you attempted to seek care from the walk-in clinic. Unfortunately that they are not able to provide refills for your prescriptions. You could try the [facility] primary care clinic. There is also clinic in [place] called [facility] that deals with some of the opioid use disorder component but at least might be able to get treatment with the Suboxone through there. I sent new prescriptions to preferred pharmacy. Forms: PCP List Discharge Date/Time: 12/31/23 18:01
[2023-12-31] MEDS: cloNIDine 0.1 MG TABLET PO STA (17:27)
[2023-12-31] MEDS: BUPRENORPHINE/NALOXONE 8-2 MG TAB SL STA (17:27)
[2023-12-31] MEDS: BACLOFEN 10 MG TABLET PO STA (17:27)
== END 2023-12-31 18:01 | disposition home or self-care (01) ==
LOC: ED 16:02
DX: M06.9 Rheumatoid arthritis, unspecified (principal); M79.7 Fibromyalgia; F11.90 Opioid use, unspecified, uncomplicated; Z79.899 Other long term (current) drug therapy
CPT/HCPCS: 99282; 99284; A9270

== ENCOUNTER 2024-01-18 17:24 | Outpatient (CLI) | payer MEDICAID | END 2024-01-18 23:59 | disposition left against medical advice (07) | LOC: EMS 17:24 | DX: R26.9 Unspecified abnormalities of gait and mobility (principal); R53.1 Weakness ==

== ENCOUNTER 2024-05-02 10:05 | Emergency (ER) | payer MEDICAID ==
--- NOTE | 2024-05-02 11:25 | ED Physician Documentation ---
PD HPI OPHTHO - Stated complaint Stated Complaint: FACIAL PX/SWELLING - Chief complaint Chief Complaint: Heent - History of Present Illness Timing - onset: Last night (symptoms worsened), How many days ago (2) Location: Right Quality / character: Aching, Throbbing Associated symptoms: Redness, Swelling, Tearing, Photophobia, Double vision, Decreased vision - Additional information Additional information: Patient is a 39-year-old male with past medical history remarkable for rheumatoid arthritis he is on immune O injections and oral prednisone for his history of RA. He comes to the emergency department with swelling to his nose and face. He notes symptoms of swelling to his nose started 2 days ago and today and yesterday symptoms seem to extend to his right eye. He notes significant pain to the right naris. No discharge no congestion. He denies any runny nose over the past few days no trauma to the face. He notes when the swelling extended to his eye he developed symptoms of double vision and photophobia. He notes pain with movement of his eye and symptoms feel best with keeping his eye closed. He is not taking anything for his symptoms other than his at home fentanyl that he takes daily and his steroids that he takes regularly. He denies any fevers but notes occasional chills. He denies ever having similar symptoms. PD PAST MEDICAL HISTORY - Past Medical History Cardiovascular: None Respiratory: None Neuro: None Endocrine/Autoimmune: Other GI: None : None HEENT: None Psych: Anxiety, Panic attacks, Other Musculoskeletal: Rheumatoid arthritis, Chronic back pain Derm: None - Past Surgical History Past Surgical History: Yes Ortho: Other - Present Medications Home Medications: Ambulatory Orders Medication Instructions Recorded Confirmed Methotrexate [Methotrexate Sodium] 2.5 mg ORAL DAILY 04/26/22 05/02/24 Gabapentin [Neurontin] 100 mg PO QPM 10/17/23 05/02/24 Solaris For Ra 10/17/23 Doxycycline [Vibramycin] 100 mg PO BID #14 tablet 05/02/24 Mupirocin 2% Oint [Bactroban 2% 1 applic TOP ONCE #50 gm 05/02/24 Oint] Prednisone [Delia] 5 mg PO DAILY 05/02/24 05/02/24 - Allergies Allergies/Adverse Reactions: Allergies Allergy/AdvReac Type Severity Reaction Status Date / Time No Known Drug Allergies Allergy Verified 12/31/23 16:05 - Social History Does the pt smoke?: Yes Smoking Status: Current every day smoker Does the pt drink ETOH?: No Does the pt have substance abuse?: Yes - Immunizations Immunizations are current?: No Immunizations: No immun - POLST Patient has POLST: No POLST Status: Full Code PD ED PE NORMAL - Vitals Vital signs reviewed: Yes - General General: Alert and oriented X 3 - HEENT HEENT: Other (Significant erythema noted to nose with right naris showing erythema and maceration to right naris along nasal septum. No significant discharge no areas of fluctuance. Erythema appears to extend to right eye with mild periorbital swelling and reproducible pain on extraocular movement. Pupils are ) - Neck Neck: Supple, no meningeal sign, Other - Cardiac Cardiac: RRR (Anterior cervical lymphadenopathy appreciated.), No murmur, No gallop, No rub - Respiratory Respiratory: No respiratory distress, Clear bilaterally - Abdomen Abdomen: Normal bowel sounds, Non tender, Non distended - Derm Derm: Normal color, Other (Erythema noted to anterior nose extending to right eye no other signs of rash or lesions appreciated. No open wounds noted to the face.) Results - Vitals Vitals: Vital Signs - 24 hr 05/02/24 05/02/24 05/02/24 10:31 11:33 13:00 Temperature 36.8 C Heart Rate 92 101 H 88 Respiratory 18 17 16 Rate Blood Pressure 156/114 H 144/88 H 133/89 H O2 Saturation 98 95 97 Oxygen O2 Source Room air - Labs Labs: Laboratory Tests 05/02/24 05/02/24 05/02/24 12:05 12:05 12:05 WBC 10.7 RBC 4.13 L Hgb 11.7 L Hct 37.0 L MCV 89.6 MCH 28.3 MCHC 31.6 L RDW 15.4 H Plt Count 367 MPV 8.1 Neut # (Auto) 6.5 Lymph # (Auto) 3.0 [place] # (Auto) 1.0 Eos # (Auto) 0.1 Baso # (Auto) 0.1 Absolute Nucleated RBC 0.00 Nucleated RBC % 0.0 Sodium 137 Potassium 4.1 Chloride 101 Carbon Dioxide 32 Anion Gap 4.0 L BUN 9 Creatinine 0.6 Estimated GFR (MDRD) 149 Glucose 92 Lactic Acid 0.8 Calcium 9.9 Total Bilirubin 0.2 AST 16 ALT 10 Alkaline Phosphatase 122 H Total Protein 8.3 Albumin 4.4 Globulin 3.9 Albumin/Globulin Ratio 1.1 PD Medical Decision Making - ED course Complexity details: reviewed old records, reviewed results ED course: Patient is a 39-year-old male presenting to the emergency department with erythema to nose and right side of facial bones. Patient symptoms extended to the eye and have significant pain today so he came to the emergency department. Symptoms have been going on for 2 days with erythema starting to right nares. Patient notes no recent congestion or recent trauma to his face. He has a history of rheumatoid arthritis and is immunocompromised on oral steroids that he takes daily. Patient denies any recent antibiotic use no fevers but occasional chills vitals on arrival are remarkable for tachycardia but afebrile saturating well on room air. Physical exam shows significant erythema to anterior nose and swelling with maceration to right naris. Additionally erythema extends to right cheek with mild periorbital swelling but no conjunctival erythema pain with movement of extraocular muscles but they appear intact and pupils are equal round reactive to light and accommodation. Gross visual acuity intact. CN 7 intact, no signs of vesicle or discharge from site of erythema Labs obtained here in the emergency department prior to CT scan of facial bones and CT orbits shows no significant leukocytosis hemoglobin stable CMP is unremarkable lactic acid is within normal range. Given reassuring labs patient does not meet sepsis criteria mild tachycardia but this resolved here in the emergency department. CT imaging reviewed showing no signs of abscess or orbital abscess. Patient updated on reassuring findings discussed with patient given his immunocompromise state low threshold to return to emergency department watch for any fevers worsening swelling redness increased pain. Will give topical mupirocin for him to apply to his right naris as well as oral Bactrim to help with his cellulitis of the face. He is instructed to return additionally with any vision changes pain behind his eye swelling that increases numbness or tingling or fevers. Patient understands and is agreeable wt this plan. Departure - Departure Disposition: 01 Home, Self Care Clinical Impression: Cellulitis diffuse, face, Cellulitis of nose, external Condition: Good Instructions: Cellulitis Dc, ED Infec Skin Cellulitis, ED Cellulitis Facial Prescriptions: Mupirocin 2% Oint [Bactroban 2% Oint] 1 applic TOP ONCE #50 gm Doxycycline [Vibramycin] 100 mg PO BID #14 tablet Comments: You were seen here in the emergency department for the redness on your face this is known as a skin infection your images were reassuring showing no signs of abscesses you should take antibiotics as prescribed watch for any vision changes loss of vision worsening pain any fevers I have sent an oral antibiotic please take as prescribed as well as topical antibiotic please apply to your nose and face placed on your nailbeds as well to prevent worsening infection. Try to avoid touching your face until this improves and follow-up with your PCP in 1 week for wound recheck return with any of the symptoms listed above or any other new or worsening symptoms. Forms: PCP List
[2024-05-02] MEDS ORDERED: iohexoL-300 100 ML VIAL ONE (12:12)
[2024-05-02 12:16] LABS: BASOPHILS # (AUTO) 0.1 10^3/uL (0.0-0.1); BASOPHILS % (AUTO) 0.5 %; EOSINOPHILS # (AUTO) 0.1 10^3/uL (0.0-0.7); EOSINOPHILS % (AUTO) 1.2 %; HGB - HEMOGLOBIN 11.7 g/dL (14.0-18.0); LYMPHOCYTES % (AUTO) 28.4 %; MEAN CORPUSCULAR HEMOGLOBIN 28.3 pg (27.0-31.0); MEAN CORPUSCULAR HGB CONC 31.6 g/dL (32.0-36.0); MEAN CORPUSCULAR VOLUME 89.6 fL (80.0-94.0); MEAN PLATELET VOLUME 8.1 fL (7.4-11.4); MONOCYTES % (AUTO) 9.1 %; NEUTROPHILS # (AUTO) 6.5 10^3/uL (1.5-6.6); NEUTROPHILS % (AUTO) 60.6 %; PLT - PLATELET COUNT 367 10^3/uL (130-450); RED BLOOD COUNT 4.13 10^6/uL (4.70-6.10); RED CELL DISTRIBUTION WIDTH 15.4 % (12.0-15.0); WHITE BLOOD COUNT 10.7 x10^3/uL (4.8-10.8)
[2024-05-02] MEDS: LORazepam 2 MG/ML VIAL IVP ONE (12:18)
[2024-05-02 12:28] LABS: ALBUMIN 4.4 g/dL (3.2-5.5); ALBUMIN/GLOBULIN RATIO 1.1 (1.0-2.2); BILIRUBIN,TOTAL 0.2 mg/dL (0.2-1.0); CALCIUM 9.9 mg/dL (8.5-10.3); CREATININE 0.6 mg/dL (0.6-1.3); POTASSIUM 4.1 mmol/L (3.5-4.5); TOTAL PROTEIN 8.3 g/dL (6.4-8.9)
[2024-05-02] MEDS: LORazepam 2 MG/ML VIAL IVP STA (12:30)
[2024-05-02] MEDS: iohexoL-300 100 ML VIAL IVP ONE (13:08)
--- NOTE | 2024-05-02 13:36 | CT Report ---
PROCEDURE: Orbits W INDICATIONS: concern for orbital abscess CONTRAST: 100 mL Omnipaque 300 TECHNIQUE: After the administration of intravenous contrast, 2.0 mm axial images acquired through the orbits, wi th coronal reformatting. For radiation dose reduction, the following was used: automated exposure c ontrol, adjustment of mA and/or kV according to patient size. COMPARISON: None FINDINGS: Image quality: Severely suboptimal evaluation due to motion artifact. Orbits: Globes are symmetrical. The optic nerves are normal in size and enhancement. No retrobulba r masses or fat abnormalities. The extra-ocular muscles are normal and symmetrical in appearance. L acrimal glands are normal. Optic chiasm is normal. Periorbital soft tissues are normal. Intracranial: The pituitary gland is normal, without sellar or suprasellar masses. Visualized cereb ral hemispheres, brainstem, and spinal cord appear normal. Bones and sinuses: Visualized calvarium and facial bones appear intact. Visualized sinuses and mast oids are clear. IMPRESSION: Severely suboptimal evaluation due to motion artifact. No orbital pathology. Reviewed by: Rodger Dunn MD on 05/02/2024 1:34 PM PDT Approved by: Rodger Dunn MD on 05/02/2024 1:34 PM PDT Station ID: [id number]
--- NOTE | 2024-05-02 13:38 | CT Report ---
PROCEDURE: Maxillofacial W INDICATIONS: concern for abscess CONTRAST: 100ml [id number] TECHNIQUE: After the administration of intravenous contrast, 3.0 mm axial sections acquired from the mid-neck to the frontal sinuses, with coronal reformatting. For radiation dose reduction, the following was use d: automated exposure control, adjustment of mA and/or kV according to patient size. COMPARISON: None. FINDINGS: Image quality: Excellent. Soft tissues: No edema, masses, or fluid collections. No enlarged lymph nodes. Vascular: Visualized vascular structures appear patent throughout. Bony vascular foramina and canal s appear normal. Bones: Facial bones appear intact, without fractures, erosions, or destruction. Visualized portions of the skull base and auditory canals also appear normal. Multiple dental caries with associated pe riapical lucency. Sinuses: Paranasal sinuses are aerated without fluid levels, mucosal thickening, or mucoceles. Mast oid air cells are aerated. IMPRESSION: No abscess. Multiple dental caries with associated periapical lucency. Dentist referral is recommended. Reviewed by: Rodger Dunn MD on 05/02/2024 1:37 PM PDT Approved by: Rodger Dunn MD on 05/02/2024 1:37 PM PDT Station ID: [id number]
[2024-05-02] MEDS: DOXYCYCLINE 100 MG TABLET PO STA (14:25)
[2024-05-02 14:35] VITALS: BP 128/71; O2SAT 99
== END 2024-05-02 14:34 | disposition home or self-care (01) ==
LOC: ED 10:05
DX: J34.0 Abscess, furuncle and carbuncle of nose (principal); L03.211 Cellulitis of face; M06.9 Rheumatoid arthritis, unspecified; F17.200 Nicotine dependence, unspecified, uncomplicated
CPT/HCPCS: 36415; 70481; 70487; 80053; 83605; 85025; 96374; 99284; A9270; J2060; Q9967